=== PATIENT | male | born 1960 | race Caucasian/White ===

== ENCOUNTER → 2018-05-21 07:36 | Outpatient (CLI) | payer MEDICAID, SELFPAY ==
[2018-05-21 09:38] LABS: Vitamin B12 509 pg/mL (193-986)
[2018-05-21 09:51] LABS: PHOSPHORUS 3.3 mg/dL (2.6-4.7)
[2018-05-22 12:55] LABS: HIV-1/2 Ag & Ab Screen Negative (NEGAT)
[2018-05-23 10:05] LABS: Thiamine (Vitamin B1), WB 162 nmol/L (70-180)
[2018-05-23 12:49] LABS: HBs Antibody, Qual Negative; HBs Antibody, Quant <3.1 mIU/mL; Hepatitis B Core Antibody Negative (NEGAT); Hepatitis B surface Ag Negative (NEGAT); Hepatitis C Ab w Rflx HCV PCR Negative (NEGAT)
== END ==
PROVIDERS: PCP Internal Medicine; Visit Provider Nurse Practitioner
DX: K70.9 Alcoholic liver disease, unspecified (principal)
CPT/HCPCS: 36415; 86704; 86706; 86803; 87340; 87389; 76700; 82607; 83735; 84100; 84425

== ENCOUNTER → 2018-05-21 08:24 | Outpatient (CLI) | payer MEDICAID, SELFPAY ==
--- NOTE | 2018-05-21 08:24 | DI.REPORT_ITS ---
SYMPTOM/DIAGNOSIS: ALCOHOLIC LIVER DISEASE K70.9 ABDOMINAL ULTRASOUND: Comparison CT scan is 10/21/17. The aorta and IVC are normal in caliber. The liver is normal in size. There is diffuse increased echogenicity of the liver consistent with fatty infiltration. There are hepatic cysts present. These were present on the CT scan from 10/21/17. There are stones seen within the gallbladder. No gallbladder wall thickening, pericholecystic fluid or biliary ductal dilatation seen. There is a negative sonographic Garrido sign. The pancreas was not well visualized on this examination due to the patient's body habitus and overlying bowel. The spleen is normal in size and appearance. The kidneys are unremarkable. No free fluid is seen on this ultrasound of the abdomen. IMPRESSION: 1. Hepatic steatosis 2. Cholelithiasis, no biliary ductal dilatation.
== END ==
PROVIDERS: PCP Internal Medicine; Visit Provider Nurse Practitioner
DX: K76.0 Fatty (change of) liver, not elsewhere classified (principal); K70.0 Alcoholic fatty liver; K80.20 Calculus of gallbladder without cholecystitis without obstruction
CPT/HCPCS: 76700

== ENCOUNTER → 2018-06-10 21:38 | Outpatient (REF) | payer MEDICAID, SELFPAY ==
[2018-06-10 22:19] LABS: Prothrombin Time 9.4 sec (9.3-10.8)
[2018-06-10 22:30] LABS: Abs Immature Grans 0.01 k/cumm (0.0-0.09); Absolute Basophil Count 0.09 k/cumm (0.0-0.2); Absolute Eosinophil Count 0.08 k/cumm (0.0-0.7); Absolute Lymphocyte Count 2.36 k/cumm (1.2-3.4); Absolute Monocyte Count 0.64 k/cumm (0.11-0.7); Absolute Neutrophil Count 2.73 k/cumm (1.2-6.7); Basophils % 1.5; Eosinophils % 1.4; HCT 43.9 % (40.0-50.0); HGB 15.3 g/dL (13.5-17.5); Immature Grans % 0.2; Lymphocytes % 39.9; Mean Corp. HGB Concentration 34.9 g/dL (32.0-36.0); Mean Corpuscular Hemoglobin 33.2 pg (27.0-33.0); Mean Corpuscular Volume 95.2 fL (80-95); Monocytes % 10.8; Neutrophils % 46.2; RBC 4.61 m/cumm (4.50-6.00); RBC Distribution Width 12.5 % (11.8-14.1); White Blood Cell Count 5.91 k/cumm (4.4-10.8)
[2018-06-10 22:33] LABS: ALT 52 U/L (12-78); AST 31 U/L (15-37); Albumin 4.1 g/dL (3.4-5.0); Alkaline Phosphatase 69 U/L (46-116); Anion Gap 10.3 mmol/L (3-11); BUN 13 mg/dL (7-18); Bilirubin, Total 0.7 mg/dL (0.2-1.0); CO2 24.7 mmol/L (21.0-32.0); Calcium 9.2 mg/dL (8.5-10.1); Chloride 105 mmol/L (98-107); Glucose 98 mg/dL (70-100); Potassium 3.9 mmol/L (3.5-5.1); Sodium 140 mmol/L (136-145); Total Protein 7.5 g/dL (6.4-8.2)
[2018-06-11 00:05] LABS: Platelet Count 225 x1000/uL (130-400)
== END ==
LOC: NCHCN 21:38
PROVIDERS: PCP Internal Medicine; Visit Provider Nurse Practitioner
DX: K92.0 Hematemesis (principal); K70.9 Alcoholic liver disease, unspecified
CPT/HCPCS: 80053; 85025; 85610

== ENCOUNTER 2018-06-14 12:26 | Emergency (ER) | payer MEDICAID, SELFPAY ==
[2018-06-14] VITALS (24 sets, daily range): BP systolic 133–156; BP diastolic 81–90; PULSE 43–59; RESP 8–32; TEMP 36.7; O2SAT 96–100
[2018-06-14] MEDS: Normal Saline 1,000 ML 1000 ML IV ×2 (12:50→16:40)
[2018-06-14] MEDS: Omnipaque 350 MG/ML 100 ML BTL IJ (12:55)
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
[2018-06-14 13:55] LABS: Bilirubin Negative (Negative); Blood Negative (Negative); Clarity Clear; Glucose Negative (Negative); Ketones Negative (Negative); Leukocyte Esterase Negative (Negative); Nitrite Negative (Negative); Specific Gravity 1.015 (1.005-1.025); Urobilinogen 0.2 EU/dL (Up TO 0.2)
[2018-06-14 13:56] LABS: Abs Immature Grans 0.02 k/cumm (0.0-0.09); Absolute Basophil Count 0.07 k/cumm (0.0-0.2); Absolute Eosinophil Count 0.13 k/cumm (0.0-0.7); Absolute Lymphocyte Count 2.42 k/cumm (1.2-3.4); Absolute Monocyte Count 0.82 k/cumm (0.11-0.7); Absolute Neutrophil Count 4.49 k/cumm (1.2-6.7); Basophils % 0.9; Eosinophils % 1.6; HCT 40.2 % (40.0-50.0); HGB 14.1 g/dL (13.5-17.5); Immature Grans % 0.3; Lymphocytes % 30.4; Mean Corp. HGB Concentration 35.1 g/dL (32.0-36.0); Mean Corpuscular Hemoglobin 32.6 pg (27.0-33.0); Mean Corpuscular Volume 92.8 fL (80-95); Mean Platelet Volume 10.7 fL (8.0-11.0); Monocytes % 10.3; Neutrophils % 56.5; Platelet Count 154 x1000/uL (130-400); RBC 4.33 m/cumm (4.50-6.00); RBC Distribution Width 11.7 % (11.8-14.1); White Blood Cell Count 7.95 k/cumm (4.4-10.8)
[2018-06-14 14:02] LABS: INR 1.1 (1.0-3.5); PTT Activated 23.9 sec (21.0-31.4); Prothrombin Time 10.5 sec (9.3-10.8)
[2018-06-14 14:06] LABS: Bacteria Negative HPF (Negative); Crystals Negative HPF (Negative); Epithelial Cells Rare HPF (Negative); Mucus Moderate (Negative); Other Cells Few Transitional (Negative); RBC 0-2 (0-2); WBC 0-2 HPF (0-5)
[2018-06-14 14:07] LABS: C & S Indicated? No; Casts 0-2 Coarse Granular LPF (Negative)
[2018-06-14 14:14] LABS: ALT 38 U/L (12-78); AST 26 U/L (15-37); Albumin 3.6 g/dL (3.4-5.0); Alkaline Phosphatase 58 U/L (46-116); Amylase 49 U/L (25-115); Anion Gap 6.7 mmol/L (3-11); BUN 12 mg/dL (7-18); Bilirubin, Total 0.7 mg/dL (0.2-1.0); CO2 26.3 mmol/L (21.0-32.0); CREATININE 0.87 mg/dL (0.70-1.30); Calcium 8.3 mg/dL (8.5-10.1); Chloride 105 mmol/L (98-107); Glucose 91 mg/dL (70-100); Lipase 159 U/L (73-393); Magnesium 1.6 mg/dL (1.8-2.4); Potassium 3.4 mmol/L (3.5-5.1); Sodium 138 mmol/L (136-145)
[2018-06-14 14:15] LABS: ETHANOL BLOOD < 3.0 mg/dL (<3); Troponin I < 0.02 ng/mL (0.00-0.06)
[2018-06-14 14:15] LABS: *AMPHETAMINES SCREEN URINE Negative (Negative); *BARBITURATES SCREEN URINE Negative (Negative); *BENZODIAZEPINES SCREEN URINE Negative (Negative); Cannabinoids THC POSITIVE (Negative); Cocaine Screen,Urine Negative (Negative); METHADONE URINE SCREEN Negative (Negative); OPIATES URINE SCREEN Negative (Negative)
[2018-06-14 14:16] LABS: Tricyclic Antidepressants Negative (Negative)
[2018-06-14] MEDS: fentaNYL 100 MCG/2 ML VIAL 50 MCG IVP (15:00)
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
[2018-06-14] MEDS: ACETAMINOPHEN 1,000 MG/100 ML BTL 400 MG (17:23)
[2018-06-14] MEDS: Ketorolac 30 MG/ML VIAL (17:23)
== END 2018-06-14 18:04 | disposition home or self-care (01) ==
LOC: ER 06-15 10:14
PROVIDERS: Emergency Provider Student in an Organized Health Care Education/Training Program; PCP Internal Medicine
DX: S43.52XA Sprain of left acromioclavicular joint, initial encounter (principal); S46.812A Strain of other muscles, fascia and tendons at shoulder and upper arm level, left arm, initial encounter; S00.03XA Contusion of scalp, initial encounter; V13.0XXA Pedal cycle driver injured in collision with car, pick-up truck or van in nontraffic accident, initial encounter; M54.2 Cervicalgia; I10 Essential (primary) hypertension
CPT/HCPCS: 36415; 51702; 74177; 80053; 80307; 83690; 96361; 96365; 96375; 99285; 70450; 71260; 72125; 72141; 73218; 80320; 81003; 81015; 82150; 83735; 84484; 85025; 85610; 85730; J0131; J1885; J3010; J3490

== ENCOUNTER 2018-10-01 11:47 | Emergency (ER) | payer MEDICAID, SELFPAY ==
[2018-10-01] VITALS (64 sets, daily range): BP systolic 93–136; BP diastolic 54–105; PULSE 99–187; RESP 16–32; TEMP 36.6–36.8; O2SAT 84–99
--- NOTE | 2018-10-01 11:42 | DI.COMBO_ITS ---
SYMPTOM/DIAGNOSIS: HYPOXIA, FELL NONCONTRAST HEAD CT: The examination was carried out according to usual protocol without contrast enhancement. There is no evidence of an intra/extra-axial hemorrhage or fluid collection. 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 The images are compared with the prior study of 06/14/18 and there has been no significant interval change. There is evidence of small vessel disease and there is in the right frontal lobe, a small region of diminished absorption which lies adjacent to the anterior superior body of the right lateral ventricle in the frontal lobe and likely represents the residua of a small right frontal infarction. The ventricles are intact. The midline is preserved. The posterior fossa is unremarkable save for atrophic changes. There is no acute abnormality involving the skull. The sinuses and mastoid air cells are intact. There are mild inflammatory changes involving the maxillary antra. 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 No acute abnormality is seen. CERVICAL SPINE CT: The vertebral bodies are intact. There is straightening of the normal cervical lordosis. There is no demonstrated vertebral body fracture. There is a minimal anterior subluxation of C 3 on C 4 which is associated with facet joint degenerative changes and no posterior element fracture is identified. There is note also made of severe degenerative changes throughout the spine involving the facet joints. The neural canal is widely patent throughout. There is no evidence of gross compromise of the neural foramen. The odontoid is intact and is closely applied to the anterior arch of C 1. Degenerative changes involving the C 1-2 articulations are noted. The prevertebral soft tissues appear intact. SUMMARY: Reversal of the normal cervical lordosis is demonstrated. There are degenerative changes most advanced in the lower cervical spine with disc narrowing and hypertrophic spurring. There is no evidence of an acute fracture or subluxation. CHEST: AP semi erect chest was performed. The lungs are free of infiltrate. There is no pleural effusion. The heart is not enlarged. The hilar structures, mediastinum and tracheal air column are intact. SUMMARY: No evidence of acute cardiopulmonary disease.
[2018-10-01] MEDS: Normal Saline 1,000 ML 1000 ML IV ×2 (12:00→13:04)
--- NOTE | 2018-10-01 12:01 | W.ED.GENAD ---
Discharge Plan Disposition Patient Disposition: [facility] Condition: Stable Discharge Details Chief Complaint: Seizure Clinical Impression: Alcohol withdrawal, Atrial fibrillation with RVR Reason For Visit: EDWARD Primary Care Provider: Otilio Fox ED Provider: Jn Maya Home Meds and New Rx's Prescriptions: No Action acetaminophen [Mapap Extra Strength] 500 MG tablet 1,000 mg PO Q6H 5 Days Qty: 60 RF: 0 Ibuprofen [Motrin Ib] 200 MG tablet 600 mg PO Q6H 5 Days Qty: 60 RF: 0 sucralfate 1 GM tablet 1 gm PO AC & HS Qty: 120 RF: 0 pantoprazole 40 MG tablet,delayed release (DR/EC) 40 mg PO DAILY Qty: 30 RF: 2 thiamine mononitrate (vit B1) [Vitamin B-1 (mononitrate)] 100 MG tablet 100 mg PO DAILY Qty: 30 RF: 0 multivitamin [Multiple Vitamins] 1 TAB tablet 1 tab PO DAILY Qty: 90 RF: 3 Medical Decision Making 58 yo male with hx of heavy aclohol use whose roommate reported to ems last drink was over 15 hours ago, who had a tonic clonic seizure witnessed by roommate lasting about 7minutes and then when ems arrived and was getting him in the ambulance had another 2-3minute tonic clonic seizure per report and was given 10mg IM versed. HE is currently moving extremities to painful stimuli and does make purposeful arm movements, do not feel intubation at this time warranted. He is afib with rvr and has hx of afib, will treat with diltiazem as unclear when this started. Will obtain head ct to eval for tbi and eval for electrolyte abnormalities. Pt is now awake and talking, caox4. Labs show significant anion gap acidosis likely from his seizure, No acute findings on imaging per Dr. Nguyen. He is still in afib with rvr with rates in the 150's so 15mg IV given in addition to the 20mg given initially and drip started. We have no icu beds here, will try to find a different facility to transfer to for his afib with rvr and alcohol withdrawal pt's bp remains stable, HR still in he 130's, spoke with Dr. jean-baptiste from [facility] who accepts pt. Differential Diagnosis alcohol withdrawal, seizure disorder, tbi Imaging Data Radiologic Study: Attestation: I personally reviewed and interpreted this imaging study as follows: Imaging: X-Ray My impression: no acute findings Radiologic Study #2: Attestation: I personally reviewed and interpreted this imaging study as follows: Imaging: CT Scan Radiologist's impression: no acute findings per Lab Data Lab results reviewed: Yes I reviewed the patient's lab results. ECG Data Attestation: I personally reviewed and interpreted this ECG (s) as follows: Prior ECG tracings: not available for review Interpretation: afib with rvr, rates of 192, mild st depression in lateral leads HPI General Mode of arrival: EMS. Date/Time Provider Initiated Documentation: 10/01/18 11:49. Limitations to Documentation: no limitations and altered mental status. Information obtained by: EMS. History of Present Illness 58 year old M presents to the emergency department with the chief complaint of seizure, Patient started experiencing this hour(s) (1) and it has been now resolved. No relieving factors improve symptom(s), Patient did receive the following treatments prior to arrival, other (10mg IM versed) Related Data Home Medications Medication Instructions Recorded Confirmed multivitamin [Multiple Vitamins] 1 tab PO DAILY #90 tab 05/29/18 07/12/18 pantoprazole 40 mg PO DAILY #30 tabcr 05/29/18 07/12/18 sucralfate 1 gm PO AC & HS #120 tab 05/29/18 07/12/18 thiamine mononitrate (vit B1) 100 mg PO DAILY #30 tab 05/29/18 07/12/18 [Vitamin B-1 (mononitrate)] Ibuprofen [Motrin Ib] 600 mg PO Q6H 5 Days #60 tab 06/14/18 07/12/18 acetaminophen [Tylenol Extra 1,000 mg PO Q6H 5 Days #60 tab 06/14/18 07/12/18 Strength] Previous Rx's Medication Instructions Recorded multivitamin [Multiple Vitamins] 1 tab PO DAILY #90 tab 05/29/18 pantoprazole 40 mg PO DAILY #30 tabcr 05/29/18 sucralfate 1 gm PO AC & HS #120 tab 05/29/18 thiamine mononitrate (vit B1) 100 mg PO DAILY #30 tab 05/29/18 [Vitamin B-1 (mononitrate)] Ibuprofen [Motrin Ib] 600 mg PO Q6H 5 Days #60 tab 06/14/18 acetaminophen [Tylenol Extra 1,000 mg PO Q6H 5 Days #60 tab 06/14/18 Strength] Allergies Allergy/AdvReac Type Severity Reaction Status Date / Time acamprosate calcium AdvReac Intermediate widespread Verified 07/01/18 13:33 [From Campral] pain General Stated Complaint: Seizure GABRIELE: 2 Review of Systems Review of Systems Unobtainable due to mental status Gastrointestinal Denies vomiting PFSH Medical History Alcohol abuse Alcohol withdrawal Alcoholic gastritis Alcoholic liver disease Anemia Atrial fibrillation with rapid ventricular response Cannabis abuse Cholelithiasis Continuous chronic alcoholism DTs (delirium tremens) Dehydration Diarrhea Diverticulitis Hematuria History of atrial fibrillation History of closed head injury Hypokalemia Hypomagnesemia Hypophosphatemia Thrombocytopenia Social History Smoking/Tobacco Use Status: Never Exam Const General: disheveled Limitations: altered mental status HENMT Head: normal to inspection Ears: external ears normal General nose exam: external nose normal Mouth: moist mucous membranes Eyes General: appearance normal, both eyes and all related structures Neck Neck: normal visual inspection Resp Effort & Inspection: normal respiratory effort and able to speak in complete sentences Cardio Jugular venous pressure: no JVD Rate: tachycardic Rhythm: abnormal rhythm Skin General skin exam: no rashes or lesions noted Neuro General: other (eyes closed, snoring, moves all extremities to painful stimuli) Extrem General: normal to inspection Psych Mental Status: mental status grossly normal Course Vital Signs Temperature 36.8 C 10/01/18 11:39 Pulse 180 H 10/01/18 11:39 Respiratory Rate 20 10/01/18 11:39 Blood Pressure 124/80 10/01/18 11:39 Pulse Oximetry 98 10/01/18 11:39 Temperature 36.8 C 10/01/18 11:39 Temperature Source Skin 10/01/18 11:39 Pulse 180 H 10/01/18 11:39 Respiratory Rate 20 10/01/18 11:39 Blood Pressure 124/80 10/01/18 11:39 Blood Pressure Position Sitting 10/01/18 11:39 Pulse Oximetry 98 10/01/18 11:39 Oxygen Delivery Method Room Air 10/01/18 11:39 Oxygen Flow Rate 0 10/01/18 11:39 Critical Care Time Critical Care Time: Yes Total Critical Care Time: 90 (minutes) Attestation: time spent giving IV diltiazem and drip, monitoring hemodynamics and frequent reassessments in patient with afib with rvr and potential to deteriorate at any time
--- NOTE | 2018-10-01 12:06 | ED.GENADUL_ITS ---
Discharge Plan Disposition Patient Disposition: [facility] Condition: Stable Discharge Details Chief Complaint: Seizure Clinical Impression: Alcohol withdrawal, Atrial fibrillation with RVR Reason For Visit: [facility]WARD Primary Care Provider: Otilio Fox ED Provider: Jn Maya Home Meds and New Rx's Prescriptions: No Action acetaminophen [Mapap Extra Strength] 500 MG tablet 1,000 mg PO Q6H 5 Days Qty: 60 RF: 0 Ibuprofen [Motrin Ib] 200 MG tablet 600 mg PO Q6H 5 Days Qty: 60 RF: 0 sucralfate 1 GM tablet 1 gm PO AC & HS Qty: 120 RF: 0 pantoprazole 40 MG tablet,delayed release (DR/EC) 40 mg PO DAILY Qty: 30 RF: 2 thiamine mononitrate (vit B1) [Vitamin B-1 (mononitrate)] 100 MG tablet 100 mg PO DAILY Qty: 30 RF: 0 multivitamin [Multiple Vitamins] 1 TAB tablet 1 tab PO DAILY Qty: 90 RF: 3 Medical Decision Making 58 yo male with hx of heavy aclohol use whose roommate reported to ems last drink was over 15 hours ago, who had a tonic clonic seizure witnessed by roommate lasting about 7minutes and then when ems arrived and was getting him in the ambulance had another 2-3minute tonic clonic seizure per report and was given 10mg IM versed. HE is currently moving extremities to painful stimuli and does make purposeful arm movements, do not feel intubation at this time warranted. He is afib with rvr and has hx of afib, will treat with diltiazem as unclear when this started. Will obtain head ct to eval for tbi and eval for electrolyte abnormalities. Pt is now awake and talking, caox4. Labs show significant anion gap acidosis likely from his seizure, No acute findings on imaging per Dr. Nguyen. He is still in afib with rvr with rates in the 150's so 15mg IV given in addition to the 20mg given initially and drip started. We have no icu beds here, will try to find a different facility to transfer to for his afib with rvr and alcohol withdrawal pt's bp remains stable, HR still in he 130's, spoke with Dr. jean-baptiste from [facility] who accepts pt. Differential Diagnosis alcohol withdrawal, seizure disorder, tbi Imaging Data Radiologic Study: Attestation: I personally reviewed and interpreted this imaging study as follows: Imaging: X-Ray My impression: no acute findings Radiologic Study #2: Attestation: I personally reviewed and interpreted this imaging study as follows: Imaging: CT Scan Radiologist's impression: no acute findings per Lab Data Lab results reviewed: Yes I reviewed the patient's lab results. ECG Data Attestation: I personally reviewed and interpreted this ECG (s) as follows: Prior ECG tracings: not available for review Interpretation: afib with rvr, rates of 192, mild st depression in lateral leads HPI General Mode of arrival: EMS . Date/Time Provider Initiated Documentation: 10/01/18 11:49 . Limitations to Documentation: no limitations and altered mental status . Information obtained by: EMS . History of Present Illness 58 year old M presents to the emergency department with the chief complaint of seizure, Patient started experiencing this hour(s) (1) and it has been now resolved. No relieving factors improve symptom(s), Patient did receive the following treatments prior to arrival, other (10mg IM versed) Related Data Home Medications Medication Instructions Recorded Confirmed multivitamin [Multiple Vitamins] 1 tab PO DAILY #90 tab 05/29/18 07/12/18 pantoprazole 40 mg PO DAILY #30 tabcr 05/29/18 07/12/18 sucralfate 1 gm PO AC & HS #120 tab 05/29/18 07/12/18 thiamine mononitrate (vit B1) 100 mg PO DAILY #30 tab 05/29/18 07/12/18 [Vitamin B-1 (mononitrate)] Ibuprofen [Motrin Ib] 600 mg PO Q6H 5 Days #60 tab 06/14/18 07/12/18 acetaminophen [Tylenol Extra 1,000 mg PO Q6H 5 Days #60 tab 06/14/18 07/12/18 Strength] Previous Rx's Medication Instructions Recorded multivitamin [Multiple Vitamins] 1 tab PO DAILY #90 tab 05/29/18 pantoprazole 40 mg PO DAILY #30 tabcr 05/29/18 sucralfate 1 gm PO AC & HS #120 tab 05/29/18 thiamine mononitrate (vit B1) 100 mg PO DAILY #30 tab 05/29/18 [Vitamin B-1 (mononitrate)] Ibuprofen [Motrin Ib] 600 mg PO Q6H 5 Days #60 tab 06/14/18 acetaminophen [Tylenol Extra 1,000 mg PO Q6H 5 Days #60 tab 06/14/18 Strength] Allergies Allergy/AdvReac Type Severity Reaction Status Date / Time acamprosate calcium AdvReac Intermediate widespread Verified 07/01/18 13:33 [From Campral] pain General Stated Complaint: Seizure GABRIELE: 2 Review of Systems Review of Systems Unobtainable due to mental status Gastrointestinal Denies vomiting PFSH Medical History Alcohol abuse Alcohol withdrawal Alcoholic gastritis Alcoholic liver disease Anemia Atrial fibrillation with rapid ventricular response Cannabis abuse Cholelithiasis Continuous chronic alcoholism DTs (delirium tremens) Dehydration Diarrhea Diverticulitis Hematuria History of atrial fibrillation History of closed head injury Hypokalemia Hypomagnesemia Hypophosphatemia Thrombocytopenia Social History Smoking/Tobacco Use Status: Never Exam Const General: disheveled Limitations: altered mental status HENMT Head: normal to inspection Ears: external ears normal General nose exam: external nose normal Mouth: moist mucous membranes Eyes General: appearance normal, both eyes and all related structures Neck Neck: normal visual inspection Resp Effort & Inspection: normal respiratory effort and able to speak in complete sentences Cardio Jugular venous pressure: no JVD Rate: tachycardic Rhythm: abnormal rhythm Skin General skin exam: no rashes or lesions noted Neuro General: other (eyes closed, snoring, moves all extremities to painful stimuli) Extrem General: normal to inspection Psych Mental Status: mental status grossly normal Course Vital Signs Temperature 36.8 C 10/01/18 11:39 Pulse 180 H 10/01/18 11:39 Respiratory Rate 20 10/01/18 11:39 Blood Pressure 124/80 10/01/18 11:39 Pulse Oximetry 98 10/01/18 11:39 Temperature 36.8 C 10/01/18 11:39 Temperature Source Skin 10/01/18 11:39 Pulse 180 H 10/01/18 11:39 Respiratory Rate 20 10/01/18 11:39 Blood Pressure 124/80 10/01/18 11:39 Blood Pressure Position Sitting 10/01/18 11:39 Pulse Oximetry 98 10/01/18 11:39 Oxygen Delivery Method Room Air 10/01/18 11:39 Oxygen Flow Rate 0 10/01/18 11:39 Critical Care Time Critical Care Time: Yes Total Critical Care Time: 90 (minutes) Attestation: time spent giving IV diltiazem and drip, monitoring hemodynamics and frequent reassessments in patient with afib with rvr and potential to deteriorate at any time
[2018-10-01 12:08] LABS: Abs Immature Grans 0.11 k/cumm (0.0-0.09); Absolute Basophil Count 0.04 k/cumm (0.0-0.2); Absolute Eosinophil Count 0.03 k/cumm (0.0-0.7); Absolute Lymphocyte Count 4.57 k/cumm (1.2-3.4); Absolute Monocyte Count 0.74 k/cumm (0.11-0.7); Absolute Neutrophil Count 4.68 k/cumm (1.2-6.7); Basophils % 0.4; Eosinophils % 0.3; HCT 45.7 % (40.0-50.0); Immature Grans % 1.1; Lymphocytes % 44.9; Mean Corpuscular Hemoglobin 32.9 pg (27.0-33.0); Mean Corpuscular Volume 93.8 fL (80-95); Mean Platelet Volume 10.3 fL (8.0-11.0); Monocytes % 7.3; RBC 4.87 m/cumm (4.50-6.00); White Blood Cell Count 10.17 k/cumm (4.4-10.8)
[2018-10-01] MEDS: Lidocaine 2% Jelly 6 ML SYR (12:10)
[2018-10-01 12:20] LABS: Platelet Count 95 x1000/uL (130-400)
[2018-10-01 12:22] LABS: PTT Activated 23.6 sec (21.0-31.4); Prothrombin Time 10.4 sec (9.3-11.0)
[2018-10-01 12:33] LABS: ALT 76 U/L (12-78); AST 79 U/L (15-37); Albumin 4.6 g/dL (3.4-5.0); Alkaline Phosphatase 73 U/L (46-116); Anion Gap 30.4 mmol/L (3-11); BUN 10 mg/dL (7-18); Bilirubin, Direct 0.45 mg/dL (0.00-0.20); Bilirubin, Total 1.3 mg/dL (0.2-1.0); CO2 12.6 mmol/L (21.0-32.0); Calcium 9.2 mg/dL (8.5-10.1); Chloride 100 mmol/L (98-107); ETHANOL BLOOD 31.3 mg/dL (<3); Glucose 120 mg/dL (70-100); Magnesium 1.9 mg/dL (1.8-2.4); Potassium 3.4 mmol/L (3.5-5.1); Sodium 143 mmol/L (136-145); Total Protein 8.4 g/dL (6.4-8.2)
[2018-10-01] MEDS: LORazepam 2 MG/ML VIAL (12:33)
[2018-10-01 13:41] LABS: Anion Gap 19.6 mmol/L (3-11); BUN 9 mg/dL (7-18); CO2 17.4 mmol/L (21.0-32.0); CREATININE 0.87 mg/dL (0.70-1.30); Calcium 8.1 mg/dL (8.5-10.1); Chloride 106 mmol/L (98-107); Glucose 95 mg/dL (70-100); Potassium 3.9 mmol/L (3.5-5.1); Sodium 143 mmol/L (136-145)
== END 2018-10-01 15:35 | disposition short-term general hospital (02) ==
PROVIDERS: Emergency Provider Emergency Medicine; PCP Internal Medicine
DX: F10.230 Alcohol dependence with withdrawal, uncomplicated (principal); I48.0 Paroxysmal atrial fibrillation
CPT/HCPCS: 36415; 80048; 80053; 80076; 93005; 96361; 96374; 96376; 99285; 70450; 71045; 72125; 80320; 83735; 85025; 85610; 85730; 93010; J2060

== ENCOUNTER 2018-10-14 12:38 | Outpatient (REF) | payer MEDICAID, SELFPAY ==
[2018-10-14 21:12] LABS: Abs Immature Grans 0.05 k/cumm (0.0-0.09); Absolute Basophil Count 0.09 k/cumm (0.0-0.2); Absolute Eosinophil Count 0.08 k/cumm (0.0-0.7); Absolute Lymphocyte Count 2.87 k/cumm (1.2-3.4); Absolute Monocyte Count 0.84 k/cumm (0.11-0.7); Absolute Neutrophil Count 4.51 k/cumm (1.2-6.7); Basophils % 1.1; Eosinophils % 0.9; HCT 42.7 % (40.0-50.0); HGB 14.9 g/dL (13.5-17.5); Immature Grans % 0.6; Mean Corp. HGB Concentration 34.9 g/dL (32.0-36.0); Mean Corpuscular Hemoglobin 32.4 pg (27.0-33.0); Mean Corpuscular Volume 92.8 fL (80-95); Mean Platelet Volume 11.5 fL (8.0-11.0); Neutrophils % 53.4; Platelet Count 275 x1000/uL (130-400); RBC Distribution Width 12.6 % (11.8-14.1); White Blood Cell Count 8.44 k/cumm (4.4-10.8)
[2018-10-14 21:36] LABS: ALT 103 U/L (12-78); AST 41 U/L (15-37); Alkaline Phosphatase 63 U/L (46-116); Anion Gap 11.4 mmol/L (3-11); BUN 14 mg/dL (7-18); Bilirubin, Total 0.4 mg/dL (0.2-1.0); CO2 25.6 mmol/L (21.0-32.0); CREATININE 0.89 mg/dL (0.70-1.30); Calcium 9.5 mg/dL (8.5-10.1); Chloride 103 mmol/L (98-107); Glucose 95 mg/dL (70-100); Potassium 4.3 mmol/L (3.5-5.1); Sodium 140 mmol/L (136-145); TSH (W/Ref FT4) 0.86 uIU/mL (0.358-3.74); Total Protein 7.3 g/dL (6.4-8.2)
== END 2018-10-14 12:58 ==
LOC: NCHCN 12:38
PROVIDERS: PCP Internal Medicine; Visit Provider Nurse Practitioner
DX: D69.6 Thrombocytopenia, unspecified (principal); I48.0 Paroxysmal atrial fibrillation
CPT/HCPCS: 80053; 84443; 85025

== ENCOUNTER 2019-01-23 13:54 | Inpatient (IN) | payer MEDICAID, SELFPAY ==
[2019-01-23] VITALS (61 sets, daily range): BP systolic 132–164; BP diastolic 85–107; PULSE 69–112; RESP 0–29; TEMP 36.6–37.3; O2SAT 86–98
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
[2019-01-23] MEDS: Normal Saline 1,000 ML 150 ML IV (14:07)
--- NOTE | 2019-01-23 14:07 | ED.GENADUL_ITS ---
Discharge Plan Disposition Patient Disposition: [facility] INPATIENT Condition: Stable Discharge Details Chief Complaint: Seizure Clinical Impression: Alcohol withdrawal, Delirium tremens, Seizure Primary Care Provider: Otilio Fox ED Provider: Gray Valentino Home Meds and New Rx's Prescriptions: No Action acetaminophen [Mapap Extra Strength] 500 MG tablet 1,000 mg PO Q6H 5 Days Qty: 60 RF: 0 Ibuprofen [Motrin Ib] 200 MG tablet 600 mg PO Q6H 5 Days Qty: 60 RF: 0 thiamine mononitrate (vit B1) [Vitamin B-1 (mononitrate)] 100 MG tablet 100 mg PO DAILY Qty: 30 RF: 0 Medical Decision Making <COLLEEN Garnica - Last Filed: 01/23/19 20:17> Patient 38-year-old female with history of seizures presenting today for seizure-like activity [place] the library. 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 Patient reports that typically is associated with alcohol consumption but he has not had alcohol in the past 3 days. Reports that while he did previously drink alcohol daily he has not done so in the past several months. Reports intermittent alcohol consumption. Patient is well-known to EMS reported to be at his baseline the postictal state. Initially, patient is slightly groggy but answering questions appropriately. After waiting approximately 10 minutes, blood was being drawn, patient has cleared greatly and is feeling much improved. He does feel fatigued but otherwise well. He does have a small abrasion to the right side of his tongue but otherwise no evidence of trauma. Will obtain baseline labs. At this point, there is no evidence of trauma patient has known history of seizure disorder not feel that imaging is warranted. Neuro exam is intact, he denies feeling anxious, no tremors noted. Labs significant for an elevated anion gap of 20. Patient has had elevated Previously after seizure activity. ETOH 51. Will also obtain UDS, UA, VBG and continue to hydrate the patient. At the end of my shift, patient is receiving hydration. Care transitioned to Dr. Valentino with above labs pending. Immediately after signing the patient out, nursing staff brought my attention to a sudden change. Patient has fresh blood around his mouth, is increasingly confused and appears to be postictal once again. He is unable to follow commands at this time. Appears diaphoretic. EKG, BGL and vitals obtained again. EKG reviewed by Dr. Valentino. CT head ordered as patient has now seized x 2. Care transitioned to Dr. Valentino. Patient is resting and waking up once again. HR 117. <Gray Rehan Valentino, DO - Last Filed: 01/23/19 18:58> This is a 58-year-old male with a past medical history of alcoholism who presents to the ER today for evaluation of seizure. He sees, EMS was contacted, and brought the patient in for evaluation. He was postictal on EMS arrival, but acting normally by the time he arrived here in the ED. He was initially seen and assessed by my colleague Luna Hyatt, he had an appropriate and thorough workup at that time. He was noted at that time that the patient's anion gap was 20. Bicarb was low. That time an additional VBG was ordered demonstrating mild acidosis, urinalysis does show evidence of ketones. Concern for alcoholic ketoacidosis. Additionally salicylate was ordered, and this was within normal limits, I do not think the cause of his acidosis. Lactate was notably elevated at 12.4 she is most likely a combination of dehydration, alcoholism and from his seizure. He was started on a banana bag, and 2 mg of Ativan given, however prior to the administration of the Ativan patient had a repeat seizure here in the ED, which resolved within less than a minute, with a very brief postictal phase. I did contact [facility], they have no beds available, I did contact the [facility] and discussed the case with their aerospace control and warning systems Dr. Tam in their neurologist Dr. trivedi. After review of the CT scan, labs, and patient's clinical presentation neurology believes that this is most likely secondary to alcohol withdrawals and not actual seizures. They do not think that the patient should be transferred at this time, and recommended management for delirium tremens and alcohol withdrawal, if he continues to have seizures in spite of the Ativan, they recommend management of this with Keppra and continued Ativan as needed. Since it is the patient does not show signs of 20 hours she is a [id number] seizures and we are able to visualize when he has a seizure they do not feel that emergent EEG is indicated at this time. I did contact Dr. Lopez, and discussed the case with him. He agrees with the assessment and plan. Prior to admission repeat neurologic exam demonstrates notable jitteriness and tremor of the hands, no evidence of dysdiadochokinesia or dysmetria. Mild unsteadiness. I have extensively reviewed the treatment plan with the patient. I have addressed all patient concerns at this time. I have also discussed the plan with the admitting physician and they agree with the current assessment and plan and have agreed to assume responsibility for the patient. All parties demonstrate verbal understanding and agreement with our assessment and plan at this time. EKG 15: 13 Rate 108, sinus tachycardia, TN 144, QTc 474, QRS 98, no significant ST elevations or depressions. No T wave inversions. Findings: Brain: There is no new hemorrhage or new extra-axial fluid collections or shift of midline structures. Ventricles: The ventricles are mildly enlarged for age. Bones/joints: There is a small left frontal craniotomy. Deep to this there is a large area of encephalomalacia extending down to the frontal horn the left lateral ventricle. There is a moderate amount of a hypodensity in the underlying white matter deep to the encephalomalacia. There is a small amount of leukomalacia adjacent to the frontal horn the right lateral ventricle. This is not significantly changed since 10/01/2018 Sinuses: There is severe mucosal thickening of both maxillary sinuses and mild mucosal thickening in the ethmoid c loss. Mastoid air cells: Visualized mastoid air cells are unremarkable. No mastoid effusion. Soft tissues: Unremarkable. Impression: #1 no acute abnormalities noted. Again noted is a large area of encephalomalacia and leukomalacia predominantly in the left frontal and adjacent parietal lobe. #2 chronic bilateral maxillary and to lesser extent ethmoid sinusitis Dictated and Authenticated by: Jn Morales MD. Ordering:MORENITA Carrasco MD HPI <COLLEEN Garnica - Last Filed: 01/23/19 20:17> General Mode of arrival: EMS . Date/Time Provider Initiated Documentation: 01/23/19 14:06 . Limitations to Documentation: altered mental status (patient is post ictal) . Information obtained by: EMS and RN notes reviewed . HPI Narrative: Patient is a 58 year old male, brought in via EMS after seizure at [facility]. EMS reports that patient had a seizure, unknown length of time, while at the library and that staff called for EMS. They report that he was quite confused with garbled speech upon first arrival but that he has been clearing since initial evaluation. They report that thye have seen him multiple times previously for similar episodes and that he is acting per his typical. Patient did not fall, they report that he landed on the desk he was working at. They note that patient smells of ETOH and marijuana although patient denies recent usage. Patient has history of alcohol dependence. He denies AHUJA, visual changes. He is reporting that only area of pain is in his IV. Related Data Home Medications Medication Instructions Recorded Confirmed thiamine mononitrate (vit B1) 100 mg PO DAILY #30 tab 05/29/18 01/23/19 [Vitamin B-1 (mononitrate)] Ibuprofen [Motrin Ib] 600 mg PO Q6H 5 Days #60 tab 06/14/18 01/23/19 acetaminophen [Tylenol Extra 1,000 mg PO Q6H 5 Days #60 tab 06/14/18 01/23/19 Strength] Previous Rx's Medication Instructions Recorded thiamine mononitrate (vit B1) 100 mg PO DAILY #30 tab 05/29/18 [Vitamin B-1 (mononitrate)] Ibuprofen [Motrin Ib] 600 mg PO Q6H 5 Days #60 tab 06/14/18 acetaminophen [Tylenol Extra 1,000 mg PO Q6H 5 Days #60 tab 06/14/18 Strength] Allergies Allergy/AdvReac Type Severity Reaction Status Date / Time acamprosate calcium AdvReac Intermediate widespread Verified 01/23/19 13:57 [From Campral] pain General GABRIELE: 2 Review of Systems <COLLEEN Garnica - Last Filed: 01/23/19 20:17> Constitutional Reports as per HPI, Denies body ache(s), Denies chills, Denies fever(s), Denies lethargy and Denies poor appetite Eyes Reports as per HPI, Denies blurry vision and Denies change in vision ENT Denies vertigo and Denies dizziness Cardiovascular Denies chest pain, Denies chest pain at rest, Denies chest pain with activity, Denies dyspnea and Denies dyspnea on exertion Respiratory Denies chest congestion, Denies cough, Denies dyspnea and Denies dyspnea on exertion Gastrointestinal Denies change in stool character, Denies nausea and Denies vomiting Genitourinary Denies urinary incontinence Musculoskeletal Reports as per HPI Integumentary/Breasts Reports as per HPI, Denies rash and Reports sores (right side of tongue) Neurologic Reports as per HPI, Reports abnormal speech (confused, delayed speech in postictal period), Denies vertigo, Denies dizziness and Reports seizure-like activity PFS <COLLEEN Garnica - Last Filed: 01/23/19 20:17> Medical History Alcohol abuse Alcohol withdrawal Alcoholic gastritis Alcoholic liver disease Anemia Atrial fibrillation with rapid ventricular response Cannabis abuse Cholelithiasis Continuous chronic alcoholism DTs (delirium tremens) Dehydration Diarrhea Diverticulitis Hematuria History of atrial fibrillation History of closed head injury Hypokalemia Hypomagnesemia Hypophosphatemia Thrombocytopenia Social History Smoking/Tobacco Use Status: Never Drug use: Daily Substance use type: marijuana Do you feel safe at home: Yes Do you feel safe in your relationship?: Yes Exam <COLLEEN Garnica - Last Filed: 01/23/19 20:17> Const General: cooperative, comfortable, no acute distress, well developed, disheveled, intoxicated appearing and lethargic Nutritional Appearance: well nourished and overweight Orientation: alert, awake and oriented x3 HENMT Head: normal to inspection, no palpable skull fracture and normocephalic Ears: hearing grossly normal bilaterally and external ears normal General nose exam: external nose normal Face and sinus: normal facial exam Mouth: abnormal oral mucosae (patient has smal abrasion to right side of tongue) Teeth and gingiva: dentition normal Neck Neck: normal visual inspection, full ROM and no meningeal signs Chest Chest: normal inspection of the chest, normal palpation of entire chest wall and no localized rib tenderness Resp Effort & Inspection: normal respiratory effort and able to speak in complete sentences Auscultation: clear to auscultation bilaterally Cardio Rate: regular rate Rhythm: regular rhythm Heart Sounds: S1 normal and S2 normal GI Inspection: normal to inspection Palpation: not firm and no guarding Skin General skin exam: no rashes or lesions noted Neuro General: alert, awake, oriented x3, gait normal, tone normal and moves all extremities Cranial Nerves: CN's II-XI intact bilaterally Cognition: normal cognition Speech: speech normal Gait: normal gait Motor: muscle tone normal throughout and strength 5/5 throughout Sensory Exam: no sensory deficits noted Coordination: [id number] test normal and [id number] test normal Extrem General: normal to inspection Psych Appearance: grossly normal and well kempt Mental Status: mental status grossly normal Speech and Movement: speech and movement normal
[2019-01-23 14:15] LABS: Abs Immature Grans 0.04 k/cumm (0.0-0.09); Absolute Basophil Count 0.03 k/cumm (0.0-0.2); Absolute Eosinophil Count 0.02 k/cumm (0.0-0.7); Absolute Lymphocyte Count 1.52 k/cumm (1.2-3.4); Absolute Monocyte Count 0.51 k/cumm (0.11-0.7); Absolute Neutrophil Count 2.53 k/cumm (1.2-6.7); Basophils % 0.6; Eosinophils % 0.4; HGB 15.3 g/dL (13.5-17.5); Immature Grans % 0.9; Lymphocytes % 32.7; Mean Corp. HGB Concentration 34.8 g/dL (32.0-36.0); Mean Corpuscular Hemoglobin 31.7 pg (27.0-33.0); Mean Corpuscular Volume 91.3 fL (80-95); Mean Platelet Volume 9.6 fL (8.0-11.0); Neutrophils % 54.4; RBC 4.82 m/cumm (4.50-6.00); RBC Distribution Width 13.6 % (11.8-14.1); White Blood Cell Count 4.65 k/cumm (4.4-10.8)
[2019-01-23 14:18] LABS: Platelet Count 99 x1000/uL (130-400)
[2019-01-23 14:50] LABS: ALT 35 U/L (12-78); AST 35 U/L (15-37); Albumin 4.2 g/dL (3.4-5.0); Alkaline Phosphatase 69 U/L (46-116); Anion Gap 20.6 mmol/L (3-11); BUN 14 mg/dL (7-18); Bilirubin, Total 0.5 mg/dL (0.2-1.0); CO2 19.4 mmol/L (21.0-32.0); CREATININE 0.89 mg/dL (0.70-1.30); Chloride 102 mmol/L (98-107); ETHANOL BLOOD 51.6 mg/dL (<3); Glucose 105 mg/dL (70-100); Magnesium 1.8 mg/dL (1.8-2.4); Potassium 3.6 mmol/L (3.5-5.1); Sodium 142 mmol/L (136-145); Total Protein 7.9 g/dL (6.4-8.2)
[2019-01-23 15:30] LABS: HCO3 (Venous) 12 mmol/L (22-28); O2 Sat (Venous) 97 % (70-80); TCO2 (Venous) 11 mmol/L (22-29); pCO2 (Venous) 33 mm/Hg (34-47); pO2 (Venous) 108 mm/Hg (28-44)
[2019-01-23 15:49] LABS: pH (Venous) 7.16 (7.32-7.43)
[2019-01-23] MEDS: Normal Saline 1,000 ML 1000 ML IV (16:09)
[2019-01-23 16:18] LABS: Troponin I < 0.02 ng/mL (0.00-0.06)
--- NOTE | 2019-01-23 16:18 | DI.CT_ITS ---
SYMPTOM/DIAGNOSIS: SEIZURE NONCONTRAST HEAD CT: A noncontrast cranial CT was performed. Note is again made of a left frontal craniotomy with marked left frontal encephalomalacia. There is moderate generalized cerebral atrophy. No evidence of acute intracranial hemorrhage, mass effect or midline shift. There is mucoperiosteal thickening of maxillary and ethmoid sinuses and to a lesser degree frontal and sphenoid sinuses consistent with a chronic sinusitis. Mastoid air cells are clear. Temporal bone structures and orbital structures appear intact. CONCLUSION: No evidence of acute intracranial process. Note is made of chronic pansinusitis.
[2019-01-23 16:43] LABS: Salicylate < 2.8 mg/dL (2.8-20.0)
--- NOTE | 2019-01-23 16:51 | DI.VRAD_ITS ---
EXAM: CT Head Without Contrast EXAM DATE/TIME: 01/23/2019 3:25 PM CLINICAL HISTORY: 58 years old, male; Signs and symptoms; Other: Seizure x 2 TECHNIQUE: Imaging protocol: Axial computed tomography images of the head/brain without contrast. Coronal and sagittal reformatted images were created and reviewed. COMPARISON: CT Head^HEAD FACE CSPINE (Adult) 10/01/2018 12:11 PM FINDINGS: Brain: There is no new hemorrhage or new extra-axial fluid collections or shift of midline structures. Ventricles: The ventricles are mildly enlarged for age. Bones/joints: There is a small left frontal craniotomy. Deep to this there is a large area of encephalomalacia extending down to the frontal horn the left lateral ventricle. There is a moderate amount of a hypodensity in the underlying white matter deep to the encephalomalacia. There is a small amount of leukomalacia adjacent to the frontal horn the right lateral ventricle. This is not significantly changed since 10/01/2018 Sinuses: There is severe mucosal thickening of both maxillary sinuses and mild mucosal thickening in the ethmoid c loss. Mastoid air cells: Visualized mastoid air cells are unremarkable. No mastoid effusion. Soft tissues: Unremarkable. IMPRESSION: #1 no acute abnormalities noted. Again noted is a large area of encephalomalacia and leukomalacia predominantly in the left frontal and adjacent parietal lobe. #2 chronic bilateral maxillary and to lesser extent ethmoid sinusitis Dictated and Authenticated by: Jn Morales MD. Ordering:MORENITA Carrasco MD
[2019-01-23 17:03] LABS: Bilirubin Negative (Negative); Blood Trace-lysed (Negative); Clarity Clear; Glucose Negative (Negative); Ketones 40 mg/dL (Negative); Leukocyte Esterase Negative (Negative); Nitrite Negative (Negative); Specific Gravity 1.025 (1.005-1.025); Urobilinogen 0.2 EU/dL (Up TO 0.2); pH 5.5 (5-8)
[2019-01-23 17:17] LABS: *AMPHETAMINES SCREEN URINE Negative (Negative); *BARBITURATES SCREEN URINE Negative (Negative); *BENZODIAZEPINES SCREEN URINE Negative (Negative); Cannabinoids THC POSITIVE (Negative); Cocaine Screen,Urine Negative (Negative); METHADONE URINE SCREEN Negative (Negative); OPIATES URINE SCREEN Negative (Negative)
[2019-01-23 17:19] LABS: Tricyclic Antidepressants Negative (Negative)
[2019-01-23 17:24] LABS: Bacteria Negative HPF (Negative); Crystals Negative HPF (Negative); Epithelial Cells Rare HPF (Negative); Mucus Trace (Negative); RBC 0-2 (0-2); WBC 0-2 HPF (0-5)
[2019-01-23 17:25] LABS: C & S Indicated? No; Casts Negative LPF (Negative)
[2019-01-23] MEDS: LORazepam 2 MG/ML VIAL IVP (17:35)
[2019-01-23 17:56] LABS: Lactate-non-spesis 12.4 mmol/l (0.6-1.4)
[2019-01-23] MEDS: MAGNESIUM SULFATE 8.12 MEQ, MULTIVITAMIN 10 ML, THIAMINE 100 MG, FOLIC ACID 1 MG in Nor... 168.867 MG IV (18:46)
[2019-01-23] MEDS: Folic Acid 1 MG TAB PO (18:46)
[2019-01-23] MEDS: Thiamine 200 MG/2 ML VIAL 100 MG IM (18:47)
[2019-01-23] MEDS: Multivitamin TAB 1 TAB PO (18:47)
[2019-01-23] MEDS: LORazepam 2 MG/ML VIAL 1 MG IVP (19:13)
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
[2019-01-23 22:54] LABS: Lactate 0.8 mmol/L (0.6-1.4)
[2019-01-23 22:56] LABS: BE (Venous) 1.8 mmol/L (-3-3); HCO3 (Venous) 26 mmol/L (22-28); O2 Sat (Venous) 98 % (70-80); TCO2 (Venous) 23 mmol/L (22-29); pCO2 (Venous) 37 mm/Hg (34-47); pH (Venous) 7.45 (7.32-7.43); pO2 (Venous) 91 mm/Hg (28-44)
[2019-01-23 22:58] LABS: Anion Gap 11.1 mmol/L (3-11); BUN 9 mg/dL (7-18); CO2 25.9 mmol/L (21.0-32.0); CREATININE 0.66 mg/dL (0.70-1.30); Chloride 101 mmol/L (98-107); Glucose 115 mg/dL (70-100); Potassium 3.3 mmol/L (3.5-5.1); Sodium 138 mmol/L (136-145)
[2019-01-24] VITALS (35 sets, daily range): BP systolic 125–158; BP diastolic 76–100; PULSE 58–107; RESP 8–33; TEMP 36.2–36.6; O2SAT 94–100
[2019-01-24] MEDS: Pantoprazole 40 MG VIAL IVP (00:36)
[2019-01-24] MEDS: Normal Saline Flush 10 ML SYR IVP (00:36)
[2019-01-24] MEDS: POTASSIUM CHLORIDE/D5-0.9%NACL 1,000 ML 85 MEQ IV (01:03)
[2019-01-24] MEDS: LORazepam 2 MG/ML VIAL IVP (01:15)
[2019-01-24 07:01] LABS: Abs Immature Grans 0.02 k/cumm (0.0-0.09); Absolute Basophil Count 0.02 k/cumm (0.0-0.2); Absolute Eosinophil Count 0.01 k/cumm (0.0-0.7); Absolute Lymphocyte Count 1.47 k/cumm (1.2-3.4); Absolute Monocyte Count 0.77 k/cumm (0.11-0.7); Absolute Neutrophil Count 3.72 k/cumm (1.2-6.7); Basophils % 0.3; Eosinophils % 0.2; Immature Grans % 0.3; Lymphocytes % 24.5; Mean Corp. HGB Concentration 35.7 g/dL (32.0-36.0); Mean Corpuscular Hemoglobin 31.8 pg (27.0-33.0); Mean Corpuscular Volume 89.2 fL (80-95); Mean Platelet Volume 10.3 fL (8.0-11.0); Monocytes % 12.8; Neutrophils % 61.9; RBC 4.71 m/cumm (4.50-6.00); White Blood Cell Count 6.01 k/cumm (4.4-10.8)
[2019-01-24 07:04] LABS: Prothrombin Time 10.1 sec (9.3-11.0)
[2019-01-24 07:11] LABS: ALT 30 U/L (12-78); AST 45 U/L (15-37); Albumin 3.7 g/dL (3.4-5.0); Alkaline Phosphatase 66 U/L (46-116); Anion Gap 10.6 mmol/L (3-11); BUN 6 mg/dL (7-18); Bilirubin, Total 1.1 mg/dL (0.2-1.0); CO2 23.4 mmol/L (21.0-32.0); CREATININE 0.64 mg/dL (0.70-1.30); Chloride 101 mmol/L (98-107); Glucose 114 mg/dL (70-100); Potassium 3.3 mmol/L (3.5-5.1); Sodium 135 mmol/L (136-145); Total Protein 7.2 g/dL (6.4-8.2)
[2019-01-24 07:30] LABS: Platelet Count 91 x1000/uL (130-400)
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
[2019-01-24] MEDS: Multivitamin TAB 1 TAB PO (09:23)
[2019-01-24] MEDS: Sucralfate 1 GM TAB PO ×4 (09:23→21:21)
[2019-01-24 11:09] LABS: Creatine Kinase 843 U/L (39-308)
--- NOTE | 2019-01-24 11:14 | PHARADMIT ---
Addendum entered by Molly Cai 01/27/19 15:42: Pharmacy Note Subjective pt feels that he is getting better per CM note Objective BP-140/102 other VS okay K+3.4 mag-1.6 plt-90 (down) pt is on enoxaparin Assessment banana bag changed to po meds (multivitamin, thiamine, folic acid) mag and K+ replacement give IV lorazepam orders for CIWA changed to PO Plan watch platelets Addendum entered by Pamella Adames 01/26/19 13:32: Pharmacy Note Subjective alert , orientated trying to get out of bed, 4-5 days out from last drink Objective ciwa 2,11. PLT 95, Assessment banana bag daily continues Plan continue CIWA regimen Original Note: Admission Pharmacy Clinical Review WITHDRAWAL SEIZURE (On CIWA protocol) ? aspiration) (Hx TBI & GI Bleed) Code Status Full Code Current Weight Wgt-105.9 kg Renally Cleared and Narrow Therapeutic Index Meds CrCl~ 105 mL/min Meds-OK QTc Value / Action Taken QTc-474 (Protonix) BP Control, Fever BP- 136/85 Tmax- 37.3C Electrolytes reviewed Na- 135 K+3.3 Mag-2.0 DVT Prophylaxis none- Low Plts Has TEDS,SCDs Opiate Usage / Scheduled Bowel Regimen Ordered No No Plt/SCr for Heparin / Enoxaparin Plts-91 SCr-0.64 INR for Warfarin INR-1.0 H/H stable, WBC/Bands H&H- 15.0/42.0 WBC- 6.01 Antibiotic appropriateness none Cultures and Sensitivities none Surgical ABX d/c within 24 hr na DM control / Insulin Dosing BG- 114 Heart Failure (Check EF%) (MENDY's, B-Block, Diuretics) none IV to PO Switch No Home Meds Reviewed Yes Home Meds Not Ordered Thiamine Comments [id number])
[2019-01-24] MEDS: Potassium Chloride 20 MEQ TABCR 40 MEQ PO (11:32)
--- NOTE | 2019-01-24 12:14 | DI.RAD_ITS ---
SYMPTOMS/DIAGNOSIS: ASPIRATION PNEUMONIA PORTABLE AP CHEST: The heart is not enlarged. The lungs are clear and well expanded. CONCLUSION: No evidence of acute disease.
--- NOTE | 2019-01-24 13:38 | PT.INIE ---
Date of service: 01/24/19 Time of Service: 12:45 PT Notes Inpatient Physical Therapy Evaluation Date: 01/24/19 Referring Doctor: Dr. Canales PT Orders: PT CONSULT: eval and treat Precautions: fall, standard Patient Profile/Admitting Diagnosis: Patient admitted due to alcohol withdrawal seizure. He's currently being monitored in the ICU on CICO protocol. PMHX: Essential hypertension, Alcohol abuse (Chronic),Alcoholic gastritis,Alcoholic liver disease, Anemia, Cannabis abuse, Cholelithiasis, History of atrial fibrillation with rapid ventricular response, Thrombocytopenia, TBI s/p craniotomy Social History/Home Situation: Patient is currently experiencing homelessness, and residing at the [facility]. Equipment Owned/DME: None Subjective: Patient reports that he is feeling well today. He states that he has been getting up approximately every 20 minutes to use the commode, with assistance from nursing. He states that he typically ambulates independently, generally walking 1-3 miles per day. He denies history of balance issues. Objective: General Observation: Resting in bed with telemetry in place, IV to right upper extremity, blood pressure cuff to left upper extremity. Mental Status: Alert and oriented to time and place. Patient is unsure of the circumstances surrounding his admission. Provides vague answers to majority of questions. When asked about fall history, patient laughs and rolls his eyes. Pain: Denies ROM: Right Upper Extremity: Shoulder flexion allows 170 degrees. Elbow and wrist motions are grossly WFL Left Upper Extremity: Shoulder flexion allows 170 degrees. Elbow and wrist motions are grossly WFL Right Lower Extremity: WFL Left Lower Extremity: WFL Strength: Right Upper Extremity: Shoulder flexion 4+/5. Biceps 5/5. Doors Prefitter strong and equal Left Upper Extremity: Shoulder flexion 4+/5. Biceps 5/5. Doors Prefitter strong and equal Right Lower Extremity: Hip flexion 5/5. Quads 5/5. Ankle dorsiflexion 5/5. Left Lower Extremity: Hip flexion 5/5. Quads 5/5. Ankle dorsiflexion 5/5. Neuro: Visual tracking is normal, although patient requires max cues for appropriate completion. He demonstrates diminished coordination with rapid alternating movements of both the upper and lower extremities. Fine motor is slightly diminished with thumb to digit tapping, again requiring max cues for completion. Kinesthetic awareness is markedly reduced for the upper extremities. There is no tremor noted. Bed Mobility/Transfers: Supine to sit: Supervision with head of bed at 30 degrees. Patient demonstrates poor safety awareness and requires assistance for management of lines. Sit to supine: Supervision with head of bed at 30 degrees. Patient demonstrates poor safety awareness and requires assistance for management of lines. Sit to stand: Supervision, again with poor safety awareness and need for cues for safety. Stand to sit: Supervision Gait: Patient is unsafe for ambulation due to poor safety awareness. When asked to stand from bed, he immediately initiates forward steps, stumbling and reaching for furniture. He requires cues for safety. Balance: Static Sitting: normal Dynamic Sitting: good Static Standing: fair Dynamic Standing: poor Special Tests: Mobility Limitations Standardized Measure [facility] AM-PAC 6 clicks Basic Mobility Inpatient Short Form: Raw Score: 16 CMS Score: 54% Informed Consent/Education: Patient instructed in purpose of PT consult and plan of care. Assessment: Patient is a 58 year old male referred to physical therapy services with the diagnosis of PT evaluation and treatment for patient admitted due to alcoholic ketoacidosis. Patient presents with clinical signs and symptoms consistent with diagnosis, with limited safety awareness and mobility issues related to diagnosis. He currently demonstrates the following impairment level findings: 1. Poor safety awareness 2. Decreased coordination 3. Decreased kinesthetic awareness 4. Decreased fine motor skills 5. Decreased balance Impairments are contributing to the following functional limitations: 1. Unable to safely ambulate independently 2. Unable to safely transfer Patient is assessed as a High [id number] complexity based on the following: History: 58-year-old male admitted for alcohol withdrawal seizure. He has a complicated medical history including alcoholism with cirrhosis, chronic anemia, history of TBI and atrial fibrillation. He has additional social components including current homelessness, which will likely complicate discharge planning. Examination: Functional limitations as noted above Presentation: Unstable and currently monitored on [facility] protocol Decision Making: high complexity Goals: Goals X1 week 1. Supine-Sit independent 2. Sit-Supine independent 3. Sit-Stand independent 4. Stand-Sit independent 5. Bed-Chair independent 6. Chair-Bed independent 7. Gait independent X 100' Plan of Care/Treatment Plan: 1-2x/day, 7 days/week x 1 week. Plan of care has been reviewed with the [employer] providing the service under Physical Therapy direction. Initiate Physical Therapy intervention for strengthening, bed mobility, transfers, gait, stairs, balance training, use of assistive device. DISCHARGE RECOMMENDATIONS: No equipment needs anticipated. TREATMENT CODE/TIME: 20 minutes (07636)
--- NOTE | 2019-01-24 18:32 | PGE_ITS ---
Date of Service Date of service: 01/24/19 Time of Service: 11:30 Assessment and Plan (1) Alcohol withdrawal seizure: Current visit: No Status: Resolved Continue scheduled cerax. Continue banana bag, CIWA, prn ativan. Would monitor in the ICU x 24 more hours monitoring for seizures. Agree with not initiating anticonvulsant therapy at this point. (2) Alcoholic gastritis without bleeding: Current visit: No Status: Acute Continue PPI and carafate. Agree that NSAIDs as outpatient could have also contributed. Improved, tolerating PO, hemoccult negative. (3) Alcohol dependence: Current visit: No Status: Acute Patient is interested in going to a sober house on discharge - case management aware (4) Alcoholic ketoacidosis: Current visit: Yes Status: Acute Resolved with PO diet. (5) Paroxysmal atrial fibrillation with rapid ventricular response: Current visit: No Status: Chronic No anticoagulation as the patient is unlikely to be compliant (6) Ataxia: Current visit: No Status: Acute PT/OT consults (7) Lactic acidosis: Current visit: Yes Status: Resolved Due to a seizure. No further workup. (8) Thrombocytopenia: Current visit: Yes Status: Chronic Likely due to EtOH/cirrhosis/splenic consumption of the platelets. No NSAIDs/chemical DVT ppx. Monitor (9) Ambulatory dysfunction: Current visit: Yes Status: Acute PT/OT consults (10) Discharge planning issues: Current visit: Yes Status: Acute Full code Case management on board with helping the patient go to a sober home (11) DVT prophylaxis: Current visit: Yes Status: Acute SCDs + TEDs Subjective Interval history since last seen: Feels better. No seizure events since arrival to ICU. Denies dizziness, chest pain, shortness of breath, nausea, vomiting. Sinus arrhythmia on tele Exam Narrative Exam Narrative: General: very pleasant/cooperative middle-aged male, laying comfortably in bed HEENT: EOMI, MMM Heart: irregularly irregular rhythm, no m/r/g Lungs: CTAB GI: abdomen is soft, nontender, nondistended Extremities: no e/c/c BLE's Objective Objective Clinical Data: Abnormal lab results 01/23/19 01/23/19 01/24/19 Range/Units 22:42 22:42 06:30 Plt Count (130-400) x1000/uL Absolute Monocytes (0.11-0.7) k/cumm VBG pH 7.45 H (7.32-7.43) VBG pO2 91 H (28-44) mm/Hg VBG O2 Saturation 98 H (70-80) % Sodium 135 L (136-145) mmol/L Potassium 3.3 L 3.3 L (3.5-5.1) mmol/L Anion Gap 11.1 H (3-11) mmol/L BUN 6 L (7-18) mg/dL Creatinine 0.66 L 0.64 L (0.70-1.30) mg/dL Glucose 115 H 114 H (70-100) mg/dL Calcium 8.0 L 8.0 L (8.5-10.1) mg/dL Phosphorus (2.6-4.7) mg/dL Total Bilirubin 1.1 H (0.2-1.0) mg/dL AST 45 H (15-37) U/L Creatine Kinase (39-308) U/L 01/24/19 01/24/19 01/24/19 Range/Units 06:30 06:30 06:30 Plt Count 91 L (130-400) x1000/uL Absolute Monocytes 0.77 H (0.11-0.7) k/cumm VBG pH (7.32-7.43) VBG pO2 (28-44) mm/Hg VBG O2 Saturation (70-80) % Sodium (136-145) mmol/L Potassium (3.5-5.1) mmol/L Anion Gap (3-11) mmol/L BUN (7-18) mg/dL Creatinine (0.70-1.30) mg/dL Glucose (70-100) mg/dL Calcium (8.5-10.1) mg/dL Phosphorus 2.0 L (2.6-4.7) mg/dL Total Bilirubin (0.2-1.0) mg/dL AST (15-37) U/L Creatine Kinase 843 H (39-308) U/L Vital Signs Temperature 36.2 C L 01/24/19 16:10 Temperature Source Temporal Artery Scan 01/24/19 16:10 Pulse 82 01/24/19 16:10 Pulse 80 01/24/19 16:01 Respiratory Rate 19 01/24/19 16:10 Respiratory Effort 01/24/19 16:10 Respiratory Depth Normal 01/24/19 16:10 Respiratory Pattern Normal 01/24/19 16:10 Blood Pressure 128/84 01/24/19 16:10 Blood Pressure Mean 98 01/24/19 16:10 Blood Pressure Position Supine 01/24/19 16:10 Pulse Oximetry 100 01/24/19 16:10 Oxygen Delivery Method Room Air 01/24/19 16:10 Oxygen Flow Rate 0 01/24/19 16:10 Pain Level 0 01/24/19 16:10 Intake & Output 01/23/19 01/24/19 01/24/19 23:59 11:59 23:59 Intake Total 1999 2073.033 / 2253.033 180 / 2253.033 Output Total 900 / 900 2700 / 3775 1075 / 3775 Balance 1100 / 1100 -626.967 / -1521.967 -895 / -1521.967 Weight 106.2 kg 105.9 kg Intake: IV 1999 1713.033 / 1713.033 Oral 360 / 540 180 / 540 Output: Urine 900 / 900 2700 / 3775 1075 / 3775 Other: Urine Color Light Makayla Straw Yellow Urine Appearance Clear Clear Cloudy Urine Odor Normal None Normal Comment PVR 29. Using urinal at bedside, urine dip unremarkable. Stool Occult Blood Negative Stool Size Smear Stool Characteristics Brown Voiding Methods Bedside Commode Urinal Urinal Urinal Incontinent Laboratory Results WBC 6.01 k/cumm (4.4-10.8) 01/24/19 06:30 RBC 4.71 m/cumm (4.50-6.00) 01/24/19 06:30 Hgb 15.0 g/dL (13.5-17.5) 01/24/19 06:30 Hct 42.0 % (40.0-50.0) 01/24/19 06:30 MCV 89.2 fL (80-95) 01/24/19 06:30 MCH 31.8 pg (27.0-33.0) 01/24/19 06:30 MCHC 35.7 g/dL (32.0-36.0) 01/24/19 06:30 RDW 13.0 % (11.8-14.1) 01/24/19 06:30 Plt Count 91 x1000/uL (130-400) L 01/24/19 06:30 MPV 10.3 fL (8.0-11.0) 01/24/19 06:30 Immature Gran % 0.3 01/24/19 06:30 Neutrophils % 61.9 01/24/19 06:30 Lymphocytes % 24.5 01/24/19 06:30 Monocytes % 12.8 01/24/19 06:30 Eosinophils % 0.2 01/24/19 06:30 Basophils % 0.3 01/24/19 06:30 Absolute Neutrophils 3.72 k/cumm (1.2-6.7) 01/24/19 06:30 Absolute Lymphocytes 1.47 k/cumm (1.2-3.4) 01/24/19 06:30 Absolute Monocytes 0.77 k/cumm (0.11-0.7) H 01/24/19 06:30 Absolute Eosinophils 0.01 k/cumm (0.0-0.7) 01/24/19 06:30 Absolute Basophils 0.02 k/cumm (0.0-0.2) 01/24/19 06:30 PT 10.1 sec (9.3-11.0) 01/24/19 06:30 INR 1.0 (0.9-1.1) 01/24/19 06:30 VBG pH 7.45 (7.32-7.43) H 01/23/19 22:42 VBG pCO2 37 mm/Hg (34-47) 01/23/19 22:42 VBG pO2 91 mm/Hg (28-44) H 01/23/19 22:42 VBG HCO3 26 mmol/L (22-28) 01/23/19 22:42 VBG Total CO2 23 mmol/L (22-29) 01/23/19 22:42 VBG O2 Saturation 98 % (70-80) H 01/23/19 22:42 VBG Base Excess 1.8 mmol/L (-3-3) 01/23/19 22:42 Sodium 135 mmol/L (136-145) L 01/24/19 06:30 Potassium 3.3 mmol/L (3.5-5.1) L 01/24/19 06:30 Chloride 101 mmol/L (98-107) 01/24/19 06:30 Carbon Dioxide 23.4 mmol/L (21.0-32.0) 01/24/19 06:30 Anion Gap 10.6 mmol/L (3-11) 01/24/19 06:30 BUN 6 mg/dL (7-18) L 01/24/19 06:30 Creatinine 0.64 mg/dL (0.70-1.30) L 01/24/19 06:30 Estimated GFR/1.73 m2 >= 60.00 (mL/min/1.73m2) 01/24/19 06:30 Glucose 114 mg/dL (70-100) H 01/24/19 06:30 Lactate 0.8 mmol/L (0.6-1.4) 01/23/19 22:42 Calcium 8.0 mg/dL (8.5-10.1) L 01/24/19 06:30 Phosphorus 2.0 mg/dL (2.6-4.7) L 01/24/19 06:30 Magnesium 2.0 mg/dL (1.8-2.4) 01/24/19 06:30 Total Bilirubin 1.1 mg/dL (0.2-1.0) H 01/24/19 06:30 AST 45 U/L (15-37) H 01/24/19 06:30 ALT 30 U/L (12-78) 01/24/19 06:30 Alkaline Phosphatase 66 U/L (46-116) 01/24/19 06:30 Creatine Kinase 843 U/L (39-308) H 01/24/19 06:30 Troponin I < 0.02 ng/mL (0.00-0.06) 01/23/19 15:25 Total Protein 7.2 g/dL (6.4-8.2) 01/24/19 06:30 Albumin 3.7 g/dL (3.4-5.0) 01/24/19 06:30 TSH 2.80 uIU/mL (0.358-3.74) 01/23/19 14:04 Urine Color Yellow (Yellow) 01/23/19 16:30 Urine Clarity Clear 01/23/19 16:30 Urine pH 5.5 (5-8) 01/23/19 16:30 Ur Specific [place] 1.025 (1.005-1.025) 01/23/19 16:30 Urine Protein 100 mg/dL (Negative) H 01/23/19 16:30 Urine Ketones 40 mg/dL (Negative) H 01/23/19 16:30 Urine Blood Trace-lysed (Negative) H 01/23/19 16:30 Urine Nitrite Negative (Negative) 01/23/19 16:30 Urine Bilirubin Negative (Negative) 01/23/19 16:30 Urine Urobilinogen 0.2 EU/dL (Up TO 0.2) 01/23/19 16:30 Ur Leukocyte Esterase Negative (Negative) 01/23/19 16:30 Urine RBC 0-2 (0-2) 01/23/19 16:30 Urine WBC 0-2 HPF (0-5) 01/23/19 16:30 Ur Epithelial Cells Rare HPF (Negative) 01/23/19 16:30 Urine Crystals Negative HPF (Negative) 01/23/19 16:30 Urine Bacteria Negative HPF (Negative) 01/23/19 16:30 Urine Casts Negative LPF (Negative) 01/23/19 16:30 Urine Mucus Trace (Negative) 01/23/19 16:30 Ur Culture Indicated? No 01/23/19 16:30 Urine Glucose Negative mg/dL (Negative) 01/23/19 16:30 Salicylates < 2.8 mg/dL (2.8-20.0) L 01/23/19 14:04 Urine Opiates Screen Negative (Negative) 01/23/19 16:30 Urine Methadone Screen Negative (Negative) 01/23/19 16:30 Ur Barbiturates Screen Negative (Negative) 01/23/19 16:30 Ur Tricyclics Screen Negative (Negative) 01/23/19 16:30 Ur Amphetamines Screen Negative (Negative) 01/23/19 16:30 U Benzodiazepines Scrn Negative (Negative) 01/23/19 16:30 Urine Cocaine Screen Negative (Negative) 01/23/19 16:30 Ur THC Screen Positive (Negative) 01/23/19 16:30 Ethyl Alcohol 51.6 mg/dL (<3) 01/23/19 14:04 CXR: No evidence of acute disease.
[2019-01-24] MEDS: Normal Saline 1,000 ML 150 ML IV (19:54)
[2019-01-25] VITALS (35 sets, daily range): BP systolic 127–165; BP diastolic 77–146; PULSE 58–112; RESP 12–31; TEMP 36.3–36.6; O2SAT 95–100
[2019-01-25] MEDS: Pantoprazole 40 MG VIAL IVP ×2 (00:03→23:17)
[2019-01-25] MEDS: Normal Saline Flush 10 ML SYR IVP ×3 (00:04→23:17)
[2019-01-25] MEDS: LORazepam 2 MG/ML VIAL IVP ×3 (02:34→23:18)
[2019-01-25] MEDS: Normal Saline 1,000 ML 150 ML IV ×3 (02:34→23:34)
[2019-01-25] MEDS: Sucralfate 1 GM TAB PO ×4 (08:03→22:02)
[2019-01-25] MEDS: Multivitamin TAB 1 TAB PO (08:03)
--- NOTE | 2019-01-25 10:31 | PT.INTREAT ---
Date of service: 01/25/19 Time of Service: 10:00 PT Notes Inpatient Physical Therapy Treatment Note [facility] Date: 01/25/19 PRECAUTIONS: fall, standard SUBJECTIVE: Jemal states that he's feeling well this morning. His left knee is bothering him, which he states is normal. States that the knee ivette intermittently, and creates pain throughout the day. OBJECTIVE: PAIN: left knee BED MOBILITY/TRANSFERS Rolling L/R: independent Supine-sit: supervision Sit-supine: supervision Sit-stand: supervision with assistance for management of lines Stand-sit: supervision GAIT Assistive Device: none, although patient holds IV pole Weight bearing: full Assist: CG Distance: 60' Deviation: significant ataxia, with poor foot clearance bilaterally, and poor right foot placement. He has path deviation and poor management of obstacles. THEREX: Patient was instructed in balance and coordination activities in both seated and standing position, as noted on flowsheet. Introduced alternating arm and leg lifts, with patient requiring max cues and demonstrating poor accuracy. He tolerates introduction of small LAKESHA standing activities with dynamic movement patterns, all with CGA. ASSESSMENT: Patient demonstrating significant ataxia and reporting history of left knee instability. Will try a single crutch in RUE tomorrow for added stability. PLAN: Continue progressing balance and gait/transfer training as he's able to tolerate. TREATMENT CODE/TIME: 10:00-10:25 ([id number])
[2019-01-25 11:57] LABS: Abs Immature Grans 0.01 k/cumm (0.0-0.09); Absolute Basophil Count 0.01 k/cumm (0.0-0.2); Absolute Eosinophil Count 0.03 k/cumm (0.0-0.7); Absolute Lymphocyte Count 1.24 k/cumm (1.2-3.4); Absolute Monocyte Count 0.66 k/cumm (0.11-0.7); Absolute Neutrophil Count 3.26 k/cumm (1.2-6.7); Basophils % 0.2; Eosinophils % 0.6; HGB 16.3 g/dL (13.5-17.5); Immature Grans % 0.2; Lymphocytes % 23.8; Mean Corp. HGB Concentration 36.2 g/dL (32.0-36.0); Mean Corpuscular Hemoglobin 31.9 pg (27.0-33.0); Mean Corpuscular Volume 88.1 fL (80-95); Mean Platelet Volume 10.6 fL (8.0-11.0); Monocytes % 12.7; Neutrophils % 62.5; RBC 5.11 m/cumm (4.50-6.00); RBC Distribution Width 13.4 % (11.8-14.1); White Blood Cell Count 5.21 k/cumm (4.4-10.8)
[2019-01-25 12:00] LABS: Anion Gap 9.4 mmol/L (3-11); BUN 4 mg/dL (7-18); CO2 20.6 mmol/L (21.0-32.0); CREATININE 0.61 mg/dL (0.70-1.30); Calcium 9.2 mg/dL (8.5-10.1); Chloride 103 mmol/L (98-107); Glucose 109 mg/dL (70-100); Magnesium 2.1 mg/dL (1.8-2.4); Sodium 133 mmol/L (136-145)
[2019-01-25 12:24] LABS: Platelet Count 86 x1000/uL (130-400)
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
--- NOTE | 2019-01-25 18:55 | PDOC.CMPRO ---
Care Management Progress Note s/o: Jemal would like to go to [facility] when medically cleared for discharge. A: 58 yo male admitted for alcohol withdrawal and seizures. P: Currently homeless. Will try to seek placement at a facility that deals with Addictions rehabilitation.
--- NOTE | 2019-01-25 18:58 | CMPROGNOTE_ITS ---
Care Management Progress Note s/o: Jemal would like to go to [facility] when medically cleared for discharge. A: 58 yo male admitted for alcohol withdrawal and seizures. P: Currently homeless. Will try to seek placement at a facility that deals with Addictions rehabilitation.
[2019-01-26] VITALS (29 sets, daily range): BP systolic 111–194; BP diastolic 75–139; PULSE 61–95; RESP 15–29; TEMP 36.1–37.2; O2SAT 96–98
[2019-01-26] MEDS: LORazepam 2 MG/ML VIAL IVP (03:14)
[2019-01-26] MEDS: Normal Saline 1,000 ML 150 ML IV (05:22)
[2019-01-26] MEDS: Sucralfate 1 GM TAB PO ×4 (09:20→23:28)
[2019-01-26] MEDS: Multivitamin TAB 1 TAB PO (09:20)
[2019-01-26 11:02] LABS: Abs Immature Grans 0.01 k/cumm (0.0-0.09); Absolute Basophil Count 0.02 k/cumm (0.0-0.2); Absolute Eosinophil Count 0.04 k/cumm (0.0-0.7); Absolute Lymphocyte Count 1.62 k/cumm (1.2-3.4); Absolute Monocyte Count 0.68 k/cumm (0.11-0.7); Basophils % 0.3; Eosinophils % 0.6; HCT 45.8 % (40.0-50.0); HGB 16.5 g/dL (13.5-17.5); Immature Grans % 0.2; Lymphocytes % 25.8; Mean Corpuscular Hemoglobin 31.8 pg (27.0-33.0); Mean Corpuscular Volume 88.2 fL (80-95); Mean Platelet Volume 10.8 fL (8.0-11.0); Monocytes % 10.8; Neutrophils % 62.3; RBC 5.19 m/cumm (4.50-6.00); RBC Distribution Width 13.2 % (11.8-14.1); White Blood Cell Count 6.27 k/cumm (4.4-10.8)
[2019-01-26 11:04] LABS: Platelet Count 95 x1000/uL (130-400)
--- NOTE | 2019-01-26 11:20 | PT.INTREAT ---
Date of service: 01/26/19 Time of Service: 10:10 PT Notes Inpatient Physical Therapy Treatment Note [facility] Date: 01/26/19 SUBJECTIVE: Nsg reports Jemal is very unsteady on feet today. Jemal indicated that he felt dizzy, which seems to get worse with standing. OBJECTIVE: [] BED MOBILITY/TRANSFERS Sit-stand: S Stand-sit: S GAIT held on ambulation today due to increase in unsteadiness as well as increased c/o dizziness. THEREX: for global LE strengthening, in seated and standing positions. I also incorporated balance ex, both static and dynamic in seated and standing positions. See flowsheet for specific ex details. He required CGA with standing balance ex. ASSESSMENT: tolerated session fairly well, despite increased c/o dizziness. PLAN: will continue to progress his overall strength and balance as well as functional mobility following PT POC. TREATMENT CODE/TIME: 25 min. TPx1, NREx1.
[2019-01-26 11:25] LABS: ALT 44 U/L (12-78); AST 50 U/L (15-37); Albumin 3.9 g/dL (3.4-5.0); Alkaline Phosphatase 70 U/L (46-116); Anion Gap 11.5 mmol/L (3-11); BUN 5 mg/dL (7-18); Bilirubin, Total 1.3 mg/dL (0.2-1.0); CO2 25.5 mmol/L (21.0-32.0); CREATININE 0.79 mg/dL (0.70-1.30); Calcium 9.1 mg/dL (8.5-10.1); Chloride 103 mmol/L (98-107); Glucose 114 mg/dL (70-100); Potassium 3.5 mmol/L (3.5-5.1); Sodium 140 mmol/L (136-145); Total Protein 7.3 g/dL (6.4-8.2)
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
--- NOTE | 2019-01-26 15:09 | PDOC.CMPRO ---
Care Management Progress Note /o: Jemal would still like to go to [facility] when medically cleared for discharge. States he has made contact with them and they will call back for an intake. They have his cell phone number. A: 58 yo male admitted for alcohol withdrawal and seizures. Homeless at this time but can stay with a friend when discharged and waiting for admission to [facility]. P: Will try to seek placement at a facility that deals with Addictions rehabilitation. Jemal made initial contact with [facility]. He will need transportation.
--- NOTE | 2019-01-26 15:25 | CMPROGNOTE_ITS ---
Care Management Progress Note /o: Jemal would still like to go to [facility] when medically cleared for discharge. States he has made contact with them and they will call back for an intake. They have his cell phone number. A: 58 yo male admitted for alcohol withdrawal and seizures. Homeless at this time but can stay with a friend when discharged and waiting for admission to [facility]. P: Will try to seek placement at a facility that deals with Addictions rehabilitation. Jemal made initial contact with [facility]. He will need transportation.
[2019-01-26] MEDS: Gabapentin 400 MG CAP 800 MG PO (20:31)
[2019-01-26] MEDS: Enoxaparin 40 MG/0.4 ML SYR SC (20:31)
[2019-01-26] MEDS: Pantoprazole 40 MG VIAL IVP (23:28)
[2019-01-26] MEDS: Normal Saline Flush 10 ML SYR IVP (23:28)
[2019-01-27] VITALS (19 sets, daily range): BP systolic 140–158; BP diastolic 91–102; PULSE 57–98; RESP 11–29; TEMP 36.2–36.9; O2SAT 88–97
[2019-01-27 07:48] LABS: Abs Immature Grans 0.01 k/cumm (0.0-0.09); Absolute Basophil Count 0.01 k/cumm (0.0-0.2); Absolute Eosinophil Count 0.09 k/cumm (0.0-0.7); Absolute Lymphocyte Count 1.92 k/cumm (1.2-3.4); Absolute Monocyte Count 0.82 k/cumm (0.11-0.7); Absolute Neutrophil Count 2.78 k/cumm (1.2-6.7); Basophils % 0.2; Eosinophils % 1.6; HCT 42.8 % (40.0-50.0); HGB 15.4 g/dL (13.5-17.5); Immature Grans % 0.2; Lymphocytes % 34.1; Mean Corpuscular Hemoglobin 31.7 pg (27.0-33.0); Mean Corpuscular Volume 88.1 fL (80-95); Mean Platelet Volume 10.9 fL (8.0-11.0); Monocytes % 14.6; Neutrophils % 49.3; RBC 4.86 m/cumm (4.50-6.00); RBC Distribution Width 13.3 % (11.8-14.1); White Blood Cell Count 5.63 k/cumm (4.4-10.8)
--- NOTE | 2019-01-27 07:53 | PDOC.CMPRO ---
- If Service Date Differs Date of service: 01/27/19 Time of Service: 07:54 Care Management Progress Note S/O: Jemal was sitting up in bed willing to converse with CM during visit. He noted that he is no longer sweating and showed me that his hands were not tremulous. He feels he is getting better. He has made contact with [facility] and is waiting to hear whether or not he will be accepted. He has the ability to stay with friends, short term, when he leaves the hospital. He plans to contact his bank to see how much money he has available and will try to find housing on his own. He says his friend will help with that too. A: 58 yo male admitted for alcohol withdrawal and seizures. Homeless at this time but can stay with a friend when discharged and waiting for admission to [facility]. P: Seeking inpatient substance abuse treatment.Will try to seek placement at a facility that deals with Addictions rehabilitation. Jemal made initial contact with [facility]. He will require transportation. CM will continue to support.
[2019-01-27 08:08] LABS: ALT 42 U/L (12-78); AST 42 U/L (15-37); Albumin 3.4 g/dL (3.4-5.0); Alkaline Phosphatase 65 U/L (46-116); Anion Gap 7.9 mmol/L (3-11); BUN 9 mg/dL (7-18); Bilirubin, Total 0.9 mg/dL (0.2-1.0); CO2 27.1 mmol/L (21.0-32.0); CREATININE 0.72 mg/dL (0.70-1.30); Calcium 9.1 mg/dL (8.5-10.1); Chloride 104 mmol/L (98-107); Glucose 100 mg/dL (70-100); Magnesium 1.6 mg/dL (1.8-2.4); Potassium 3.4 mmol/L (3.5-5.1); Sodium 139 mmol/L (136-145)
[2019-01-27 08:16] LABS: Diff Comment PLT Morph Reviewed; Platelet Count 90 x1000/uL (130-400); RBC Morphology Normal
[2019-01-27] MEDS: Sucralfate 1 GM TAB PO ×4 (08:20→22:39)
[2019-01-27] MEDS: Multivitamin TAB 1 TAB PO (08:21)
[2019-01-27] MEDS: Gabapentin 400 MG CAP 800 MG PO ×2 (08:21→20:10)
--- NOTE | 2019-01-27 10:28 | PT.INTREAT ---
Date of service: 01/27/19 Time of Service: 10:29 PT Notes Inpatient Physical Therapy Treatment Note [facility] Date: 01/27/19 PRECAUTIONS: Fall, CIWA SUBJECTIVE: Jemal reports that he feels dizzy this morning, although is agreeable to participating in PT. OBJECTIVE: PAIN: No c/o pain BED MOBILITY/TRANSFERS Supine-sit: I Sit-supine: I Sit-stand: S Stand-sit: S GAIT Assistive Device: R ax crutch Weight bearing: Full Assist: CGA Distance: 80' x2 in a.m.; 60' + 120' in p.m. Deviation: LOB x3 with self-recovery, dizziness, seated rest NEURO RE-ED: Patient completed a standing static and dynamic balance retraining program, as per flow sheet. Patient required CGA/close SBA for safety due to balance impairment. STAIRS: Up/down 3x4 and 2x6 using 1 rail/1 ax crutch and a step-to pattern with CGA (in a.m.) SBA (in p.m.) ASSESSMENT: Patient tolerated session with c/o dizziness. He was able to tolerate a progression in gait distance with unilateral UE support. He would benefit from continued gait and balance retraining for improved mobility, as well as continued strengthening for improved activity tolerance. PLAN: Continue with PT's POC TREATMENT CODE/TIME: Session 1: 30 minutes; 41708, 18615 Session 2: 20 minutes; 03145
[2019-01-27] MEDS: MAGNESIUM SULFATE 2 GM/50 ML BAG IVPB (11:07)
[2019-01-27] MEDS: Potassium Chloride 20 MEQ TABCR 40 MEQ PO ×2 (11:08→17:38)
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
[2019-01-27] MEDS: Enoxaparin 40 MG/0.4 ML SYR SC (20:10)
[2019-01-28] VITALS (16 sets, daily range): BP systolic 121–142; BP diastolic 70–103; PULSE 52–76; RESP 14–16; TEMP 36–36.7; O2SAT 95–98
[2019-01-28] MEDS: Pantoprazole 40 MG VIAL IVP ×2 (00:02→23:36)
[2019-01-28] MEDS: Normal Saline Flush 10 ML SYR IVP ×2 (00:03→23:37)
[2019-01-28] MEDS: Acetaminophen 500 MG TAB 1000 MG PO (00:34)
[2019-01-28 06:38] LABS: Abs Immature Grans 0.02 k/cumm (0.0-0.09); Absolute Basophil Count 0.02 k/cumm (0.0-0.2); Absolute Eosinophil Count 0.12 k/cumm (0.0-0.7); Absolute Lymphocyte Count 2.35 k/cumm (1.2-3.4); Absolute Monocyte Count 0.65 k/cumm (0.11-0.7); Absolute Neutrophil Count 2.28 k/cumm (1.2-6.7); Basophils % 0.4; Eosinophils % 2.2; HCT 43.6 % (40.0-50.0); HGB 15.8 g/dL (13.5-17.5); Immature Grans % 0.4; Lymphocytes % 43.2; Mean Corp. HGB Concentration 36.2 g/dL (32.0-36.0); Mean Corpuscular Volume 88.3 fL (80-95); Mean Platelet Volume 10.6 fL (8.0-11.0); Monocytes % 11.9; Neutrophils % 41.9; Platelet Count 91 x1000/uL (130-400); RBC 4.94 m/cumm (4.50-6.00); RBC Distribution Width 13.4 % (11.8-14.1); White Blood Cell Count 5.44 k/cumm (4.4-10.8)
[2019-01-28 07:03] LABS: ALT 53 U/L (12-78); AST 49 U/L (15-37); Albumin 3.3 g/dL (3.4-5.0); Alkaline Phosphatase 69 U/L (46-116); Anion Gap 10.3 mmol/L (3-11); BUN 15 mg/dL (7-18); Bilirubin, Total 0.8 mg/dL (0.2-1.0); CO2 25.7 mmol/L (21.0-32.0); CREATININE 0.87 mg/dL (0.70-1.30); Calcium 9.2 mg/dL (8.5-10.1); Chloride 103 mmol/L (98-107); Glucose 104 mg/dL (70-100); Magnesium 1.7 mg/dL (1.8-2.4); Potassium 3.9 mmol/L (3.5-5.1); Sodium 139 mmol/L (136-145); Total Protein 7.2 g/dL (6.4-8.2)
--- NOTE | 2019-01-28 07:55 | PDOC.CMPRO ---
- If Service Date Differs Date of service: 01/28/19 Time of Service: 07:56 Care Management Progress Note S/O: Jemal was sitting up in bed during CM visit. We discussed the fact that he had a bed at [facility] yesterday, however that bed is no longer available. When he is ready to be discharged, he will need to stay with a friend for a few days, until a bed is again available. CM spoke with Amy at [facility] this morning and they will need a referral and a faxed H&P and Discharge Summary before he is able to go. A release of information form was faxed to them as well to enable arrangements to be made with Medicaid for transport when ready. CM also worked with Jemal to update HIPAA form to include Dwayne Churchill, his friend and advocate. A: 58 yo male admitted for alcohol withdrawal and seizures. Homeless at this time but can stay with a friend when discharged and waiting for admission to [facility]. P: Jemal had contacted [facility] last week for inpatient treatment of his alcohol and drug addictions and had been given a bed for yesterday. Unfortunately that information was not shared and the bed is no longer available. Jemal will likely be discharged home to stay with a friend until a bed can become available for him. CM will continue to support.
[2019-01-28] MEDS: Thiamine 100 MG TAB PO (09:01)
[2019-01-28] MEDS: Sucralfate 1 GM TAB PO ×4 (09:01→21:29)
[2019-01-28] MEDS: Multivitamin TAB 1 TAB PO (09:01)
[2019-01-28] MEDS: Folic Acid 1 MG TAB PO (09:01)
[2019-01-28] MEDS: Gabapentin 400 MG CAP 800 MG PO (09:01)
--- NOTE | 2019-01-28 10:40 | PT.INTREAT ---
Date of service: 01/28/19 Time of Service: 10:41 PT Notes Inpatient Physical Therapy Treatment Note [facility] Date: 01/27/19 PRECAUTIONS: Fall, CIWA SUBJECTIVE: Jemal reports that he is feeling less dizzy this morning, although is still reporting some dizziness. OBJECTIVE: PAIN: No c/o pain BED MOBILITY/TRANSFERS Supine-sit: I Sit-supine: I Sit-stand: I Stand-sit: I GAIT Assistive Device: No AD Weight bearing: Full Assist: SBA Distance: 300' Deviation: Path deviation with self-correction NEURO RE-ED: Patient completed a standing static and dynamic balance retraining program, as per flow sheet. He tolerated the additon of tandem stance activity, well. Patient required CGA-Mod A at times, for safety due to balance impairment. STAIRS: Up/down 9x4 and 6x6 using 1 rail and a step-to pattern with supervision ASSESSMENT: Patient tolerated session with c/o dizziness. He was able to tolerate a progression in gait distance without assistive device support. He would benefit from continued gait and balance retraining for improved mobility, as well as continued strengthening for improved activity tolerance. PLAN: Continue with PT's POC TREATMENT CODE/TIME: Session 1: 30 minutes; [id number], [id number]
[2019-01-28] MEDS: Potassium Chloride 10 MEQ TABCR PO (10:46)
[2019-01-28] MEDS: Magnesium Oxide 400 MG TAB PO (10:47)
--- NOTE | 2019-01-28 11:21 | PT.INDS ---
Date of service: 01/28/19 Time of Service: 11:00 PT Notes Date: 01/28/19 Referring Doctor: Dr. Canales PT Orders: PT CONSULT: eval and treat Precautions: fall, standard Treatment Dates: 01/24/19 - 01/28/19 Patient Profile/Admitting Diagnosis: Patient admitted due to alcohol withdrawal seizure. He's participated in PT intervention to address mobility, with a total of 7 visits over the past 5 days. PMHX: Essential hypertension, Alcohol abuse (Chronic),Alcoholic gastritis,Alcoholic liver disease, Anemia, Cannabis abuse, Cholelithiasis, History of atrial fibrillation with rapid ventricular response, Thrombocytopenia, TBI s/p craniotomy Social History/Home Situation: Patient is currently experiencing homelessness, and residing at the [facility]. Equipment Owned/DME: None Subjective: Patient reports that he is feeling well today. He states that he has been walking around the ICU on his own, and although he feels dizzy, he is doing better overall. He reports constant dizziness, regardless of motion. Patient has been working with Care Management on discharge planning. He states that he plans to go to rehab upon discharge. Objective: General Observation: Resting in bed with no lines. Mental Status: Alert and oriented x 3. Pleasant and agreeable to treatment. Pain: Denies ROM: Right Upper Extremity: Shoulder flexion allows 170 degrees. Elbow and wrist motions are grossly WFL Left Upper Extremity: Shoulder flexion allows 170 degrees. Elbow and wrist motions are grossly WFL Right Lower Extremity: WFL Left Lower Extremity: WFL Strength: Right Upper Extremity: Shoulder flexion 4+/5. Biceps 5/5. Dependency Case Manager strong and equal Left Upper Extremity: Shoulder flexion 4+/5. Biceps 5/5. Dependency Case Manager strong and equal Right Lower Extremity: Hip flexion 5/5. Quads 5/5. Ankle dorsiflexion 5/5. Left Lower Extremity: Hip flexion 5/5. Quads 5/5. Ankle dorsiflexion 5/5. Neuro: Visual tracking is normal, with nystagmus on end-ranges of lateral gaze to both sides. He demonstrates diminished coordination with rapid alternating movements of both the upper and lower extremities. Fine motor is normal with thumb to digit tapping. Kinesthetic awareness is normal for the upper extremities. There is no tremor noted. Bed Mobility/Transfers: Supine to sit: Independent Sit to supine: Independent Sit to stand: Independent Stand to sit: Independent Gait: Patient is able to ambulate 150' with single crutch during today's session. He initially ambulates with SBA only, although with CG due to reports of dizziness toward the end of his walk. He was able to ambulate 300' with SBA earlier this am, without assistive device. Stairs: Patient managed therapeutic stairs (4x9, 6x6) with single rail and supervision only Balance: Static Sitting: normal Dynamic Sitting: good Static Standing: good Dynamic Standing: fair Special Tests: Mobility Limitations Standardized Measure [facility] AM-PAC 6 clicks Basic Mobility Inpatient Short Form: Raw Score: 24 CMS Score: 0% Treatment: Today's session consisted of re-evaluation, followed by therapeutic activities as noted above. Held on balance retraining program due to patient's level of dizziness. Assessment: Patient is a 58 year old male referred to physical therapy services with the diagnosis of PT evaluation and treatment for patient admitted due to alcoholic ketoacidosis. Patient has participated in 7 PT sessions over the past 5 days, with improvements in safety and mobility. He is experiencing significant dizziness, which is not mechanically reproduced. At this point, all rehab goals have been met, and patient is appropriate for discharge from PT services. Goals: Goals X1 week 1. Supine-Sit independent (MET) 2. Sit-Supine independent(MET) 3. Sit-Stand independent(MET) 4. Stand-Sit independent(MET) 5. Bed-Chair independent(MET) 6. Chair-Bed independent(MET) 7. Gait independent X 100'(MET) Plan of Care/Treatment Plan: Discharge from PT services in acute care setting. DISCHARGE RECOMMENDATIONS: No equipment needs anticipated. TREATMENT CODE/TIME: 15 minutes ([id number])
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
[2019-01-28] MEDS: Enoxaparin 40 MG/0.4 ML SYR SC (21:29)
[2019-01-29 06:28] VITALS: BP 130/84; PULSE 64
[2019-01-29 07:10] LABS: Abs Immature Grans 0.02 k/cumm (0.0-0.09); Absolute Basophil Count 0.03 k/cumm (0.0-0.2); Absolute Eosinophil Count 0.11 k/cumm (0.0-0.7); Absolute Lymphocyte Count 2.64 k/cumm (1.2-3.4); Absolute Monocyte Count 0.83 k/cumm (0.11-0.7); Absolute Neutrophil Count 3.06 k/cumm (1.2-6.7); Basophils % 0.4; Eosinophils % 1.6; HCT 46.7 % (40.0-50.0); HGB 16.6 g/dL (13.5-17.5); Immature Grans % 0.3; Lymphocytes % 39.5; Mean Corp. HGB Concentration 35.5 g/dL (32.0-36.0); Mean Corpuscular Hemoglobin 31.4 pg (27.0-33.0); Mean Corpuscular Volume 88.4 fL (80-95); Monocytes % 12.4; Neutrophils % 45.8; Platelet Count 111 x1000/uL (130-400); RBC 5.28 m/cumm (4.50-6.00); RBC Distribution Width 13.4 % (11.8-14.1); White Blood Cell Count 6.69 k/cumm (4.4-10.8)
[2019-01-29 07:34] LABS: ALT 68 U/L (12-78); AST 50 U/L (15-37); Albumin 3.9 g/dL (3.4-5.0); Alkaline Phosphatase 75 U/L (46-116); Anion Gap 11.4 mmol/L (3-11); BUN 13 mg/dL (7-18); Bilirubin, Total 0.9 mg/dL (0.2-1.0); CO2 25.6 mmol/L (21.0-32.0); CREATININE 0.72 mg/dL (0.70-1.30); Calcium 9.9 mg/dL (8.5-10.1); Chloride 100 mmol/L (98-107); Glucose 99 mg/dL (70-100); Magnesium 1.8 mg/dL (1.8-2.4); Potassium 3.7 mmol/L (3.5-5.1); Sodium 137 mmol/L (136-145)
[2019-01-29 08:45] VITALS: BP 122/92; PULSE 77; RESP 20; TEMP 36.8; O2SAT 98
[2019-01-29 08:46] VITALS: O2SAT 96
[2019-01-29] MEDS: Sucralfate 1 GM TAB PO (08:50)
[2019-01-29] MEDS: Thiamine 100 MG TAB PO (08:50)
[2019-01-29] MEDS: Folic Acid 1 MG TAB PO (08:50)
[2019-01-29] MEDS: Multivitamin TAB 1 TAB PO (08:50)
--- NOTE | 2019-01-29 09:17 | PDOC.CMDIS ---
- If Service Date Differs Date of service: 01/29/19 Time of Service: 09:17 LACE Index Scoring Tool - Questions: Length of Stay (in days): 4 - 6 Acuity (Admit via E.D.?): Yes Comorbidities: Liver or Renal Disease E.D. Visits: 4 - Answers: Total Score: 16 Risk of Readmission: High Risk Care Management Discharge Reason for Hospitalization: Alcohol withdrawal seizure Discharge Plan: Jemal is being discharged and will stay with a friend for the time being. He is awaiting a bed at [facility] where he will be treated for his long standing alcohol addiction. Patient/Family Education Needs: Discharge plan, limitations, plan of care and Ask Me Three. Services Needed at Discharge: Psychiatric Facility ([facility] for Treatment of alcohol addiction), Transportation - MH Services (Omit if N/A) Current MH Services: None
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
--- NOTE | 2019-01-29 10:11 | CMDISCH_ITS ---
- If Service Date Differs Date of service: 01/29/19 Time of Service: 09:17 LACE Index Scoring Tool - Questions: Length of Stay (in days): 4 - 6 Acuity (Admit via E.D.?): Yes Comorbidities: Liver or Renal Disease E.D. Visits: 4 - Answers: Total Score: 16 Risk of Readmission: High Risk Care Management Discharge Reason for Hospitalization: Alcohol withdrawal seizure Discharge Plan: Jemal is being discharged and will stay with a friend for the time being. He is awaiting a bed at [facility] where he will be treated for his long standing alcohol addiction. Patient/Family Education Needs: Discharge plan, limitations, plan of care and Ask Me Three. Services Needed at Discharge: Psychiatric Facility ([facility] for Treatment of alcohol addiction), Transportation - MH Services (Omit if N/A) Current MH Services: None
[2019-01-29] MEDS: POTASSIUM CHLORIDE 20 MEQ, POTASSIUM CHLORIDE 10 MEQ 30 MEQ PO (10:37)
[2019-01-29] MEDS: Magnesium Oxide 400 MG TAB PO (10:38)
== END 2019-01-29 12:00 | disposition home or self-care (01) | DRG 101 ==
LOC: ER 18:58 → ICU 01-24 08:01
PROVIDERS: Internal Medicine; Physician Assistant; Admitting Provider Internal Medicine; Emergency Provider Student in an Organized Health Care Education/Training Program; PCP Internal Medicine; Visit Provider Internal Medicine
DX: R56.9 Unspecified convulsions (principal); F10.239 Alcohol dependence with withdrawal, unspecified; I47.2 Ventricular tachycardia; E87.2 Acidosis; K29.20 Alcoholic gastritis without bleeding; K70.30 Alcoholic cirrhosis of liver without ascites; Y90.2 Blood alcohol level of 40-59 mg/100 ml; I48.0 Paroxysmal atrial fibrillation; I10 Essential (primary) hypertension; R27.8 Other lack of coordination; R26.2 Difficulty in walking, not elsewhere classified; D69.6 Thrombocytopenia, unspecified; D53.9 Nutritional anemia, unspecified
CPT/HCPCS: 36415; 36416; 80048; 80053; 80307; 82550; 82805; 82962; 93005; 96361; 96365; 96366; 97110; 97112; 97163; 97530; 99223; 99232; 99233; 99238; 99285; J1650; 70450; 71045; 80320; 80329; 81003; 81015; 83605; 83735; 84100; 84443; 84484; 85025; 85610; 93010; J2060

== ENCOUNTER 2019-03-30 17:56 | Inpatient (IN) | payer MEDICAID, SELFPAY ==
[2019-03-30] VITALS (57 sets, daily range): BP systolic 31–148; BP diastolic 18–124; PULSE 60–179; RESP 10–30; TEMP 36.5–37.5; O2SAT 91–97
[2019-03-30] MEDS: Normal Saline 1,000 ML 150 ML IV (18:25)
[2019-03-30] MEDS: LORazepam 2 MG/ML VIAL ×2 (18:35→18:45)
[2019-03-30] MEDS: levETIRAcetam 500 MG/5 ML VIAL (18:44)
[2019-03-30 18:50] LABS: Abs Immature Grans 0.07 k/cumm (0.0-0.09); Absolute Basophil Count 0.07 k/cumm (0.0-0.2); Absolute Eosinophil Count 0.01 k/cumm (0.0-0.7); Basophils % 0.6; Eosinophils % 0.1; HCT 46.6 % (40.0-50.0); HGB 15.8 g/dL (13.5-17.5); Immature Grans % 0.6; Lymphocytes % 38.4; Mean Corp. HGB Concentration 33.9 g/dL (32.0-36.0); Mean Corpuscular Hemoglobin 32.4 pg (27.0-33.0); Mean Corpuscular Volume 95.5 fL (80-95); Mean Platelet Volume 10.2 fL (8.0-11.0); Monocytes % 10.1; Neutrophils % 50.2; Platelet Count 156 x1000/uL (130-400); RBC 4.88 m/cumm (4.50-6.00); RBC Distribution Width 13.1 % (11.8-14.1); White Blood Cell Count 12.23 k/cumm (4.4-10.8)
[2019-03-30 18:57] LABS: Absolute Monocyte Count 1.24 k/cumm (0.11-0.7); Absolute Neutrophil Count 6.14 k/cumm (1.2-6.7)
[2019-03-30 19:02] LABS: ALT 33 U/L (12-78); AST 47 U/L (15-37); Albumin 4.4 g/dL (3.4-5.0); Alkaline Phosphatase 76 U/L (46-116); Anion Gap 33.8 mmol/L (3-11); BUN 11 mg/dL (7-18); Bilirubin, Total 0.9 mg/dL (0.2-1.0); CO2 11.2 mmol/L (21.0-32.0); CREATININE 1.03 mg/dL (0.70-1.30); Calcium 9.2 mg/dL (8.5-10.1); Chloride 104 mmol/L (98-107); ETHANOL BLOOD 46.1 mg/dL (<3); Glucose 130 mg/dL (70-100); Magnesium 2.1 mg/dL (1.8-2.4); Potassium 3.1 mmol/L (3.5-5.1); Sodium 149 mmol/L (136-145); Total Protein 8.4 g/dL (6.4-8.2)
[2019-03-30 19:03] LABS: Troponin I < 0.02 ng/mL (0.00-0.06)
[2019-03-30] MEDS: THIAMINE 100 MG in Normal Saline 100 ML 200 MG IVPB (19:03)
--- NOTE | 2019-03-30 19:30 | DI.CT_ITS ---
SYMPTOM/DIAGNOSIS: TRAUMA TO FACE, FELL FROM BENCH TO GROUND, H/O TBI, SEIZURE DISORDER NONCONTRAST HEAD CT: Comparison is made with 01/23/19. The exam is mildly limited by artifact related to dental work. A large area of encephalomalacia is again noted in the left frontal region. No intracranial hemorrhage or skull fracture is seen. The ventricles are unchanged in size. There are again noted to be left frontal and temporal craniotomy defects. IMPRESSION: Stable area of left frontal encephalomalacia. No acute abnormality. CERVICAL SPINE CT: There is no evidence of fracture or subluxation. There is no prevertebral soft tissue swelling. There are degenerative disc changes at C 5-6 and C 6-7 as well as facet degenerative changes throughout. IMPRESSION: Degenerative changes. No acute abnormality. FACIAL CT: No facial fractures are identified. There is mucosal thickening of both maxillary sinuses. The frontal sinuses are diminutive. The mastoid air cells appear clear. IMPRESSION: Mild chronic sinus disease. No acute abnormality.
--- NOTE | 2019-03-30 19:45 | W.ED.GENAD ---
Discharge Plan Disposition Patient Disposition: [facility] INPATIENT Condition: Critical Discharge Details Chief Complaint: Trauma Clinical Impression: Alcohol withdrawal, Alcohol withdrawal seizure, Acute hypokalemia, High anion gap metabolic acidosis Primary Care Provider: Otilio Fox ED Provider: Zhao Hua Home Meds and New Rx's Prescriptions: No Action acetaminophen [Mapap Extra Strength] 500 MG tablet 1,000 mg PO Q6H 5 Days Qty: 60 RF: 0 Ibuprofen [Motrin Ib] 200 MG tablet 600 mg PO Q6H 5 Days Qty: 60 RF: 0 thiamine mononitrate (vit B1) [Vitamin B-1 (mononitrate)] 100 MG tablet 100 mg PO DAILY Qty: 30 RF: 0 Medical Decision Making Patient was seen immediately on arrival: 58-year-old male with history of atrial fibrillation, not anticoagulated, alcoholism, prior alcohol withdrawal seizure, here after having witnessed generalized tonic-clonic seizure with fall from seated position to the ground with facial and head trauma. Patient is still somewhat altered although more oriented per EMS. Concern for acute life-threatening intracranial traumatic hemorrhage. Plan to obtain CT of the head. Consider facial fracture. Will obtain facial CT. Considered cervical fracture. Will obtain cervical CT. C-collar placed by nursing. We will give thiamine 100 mg IV and IV fluid. --While nursing was attempting to obtain IV access, patient had another witnessed generalized tonic-clonic seizure that lasted approximately 3 to 4 minutes. Airway was suctioned during seizure episode. He did not vomit. He was given Ativan 1 mg IV and Ativan 1 mg IM. Patient was loaded with Keppra 1 g. 19:55 -- Labs reviewed and hypokalemia noted. I will give potassium 20 mill equivalent IV. Ethyl alcohol noted to be 46. Anion gap elevated and leukocytosis noted - suspect secondary to seizure x 2. ECG was reviewed and interpreted by me: Atrial fibrillation with RVR 163 bpm, normal axis, no STEMI, nondiagnostic. Suspect tachycardia is related to seizure and withdrawal. Patient receiving IV fluid bolus. Will give Valium 5 mg IM. I called and spoke with Dr. Mcnulty about the patient. He will accept the patient and admission pending the results of CT imaging. 20:00 --patient heart rate improved with IV fluid bolus and Valium IM. 20:20 -- Patient now vomiting. Airway protected. CT of the head interpreted by radiology: No evidence of acute intracranial process. CT of the facial bones interpreted by radiology: No evidence of acute bony injury. CT of the cervical spine interpreted by radiology: No evidence of acute bony injury. cspine cleared and collar removed by me. 20:39 -- I spoke with Dr. Mcnulty-I discussed ED presentation and course including diagnostic. Dr. Mcnulty will admit the patient to the ICU. Care transition to Dr. Mnculty at this time. HPI General Mode of arrival: ambulatory. Date/Time Provider Initiated Documentation: 03/30/19 18:50. Limitations to Documentation: altered mental status. Information obtained by: patient and EMS. HPI Narrative: 58-year-old male with history of alcohol dependence, chronic alcoholism, prior episodes of withdrawal seizures, alcoholic gastritis, alcoholic cirrhosis, atrial fibrillation not on anticoagulation, chronic anemia and chronic thrombocytopenia, here with EMS after episode of seizure. Patient was apparently sitting on a bench and had a generalized tonic-clonic seizure, fell to the ground impacting his face and head. EMS notes that he has been altered but more oriented in route to a [facility]. Patient did have bleeding from his nose which has stopped. There is concern that he may have bit his tongue and he did have incontinence of urine. History and review of systems limited secondary to altered mental status. Patient denies pain at this time. Related Data Home Medications Medication Instructions Recorded Confirmed thiamine mononitrate (vit B1) 100 mg PO DAILY #30 tab 05/29/18 01/23/19 [Vitamin B-1 (mononitrate)] Ibuprofen [Motrin Ib] 600 mg PO Q6H 5 Days #60 tab 06/14/18 01/23/19 acetaminophen [Mapap Extra 1,000 mg PO Q6H 5 Days #60 tab 06/14/18 01/23/19 Strength] Previous Rx's Medication Instructions Recorded thiamine mononitrate (vit B1) 100 mg PO DAILY #30 tab 05/29/18 [Vitamin B-1 (mononitrate)] Ibuprofen [Motrin Ib] 600 mg PO Q6H 5 Days #60 tab 06/14/18 acetaminophen [Mapap Extra 1,000 mg PO Q6H 5 Days #60 tab 06/14/18 Strength] Allergies Allergy/AdvReac Type Severity Reaction Status Date / Time acamprosate calcium AdvReac Intermediate widespread Verified 01/23/19 13:57 [From Campral] pain General Stated Complaint: Trauma GABRIELE: 3 Review of Systems Review of Systems Unobtainable due to mental status [facility] Medical History Alcohol abuse (Chronic) Alcoholic gastritis (Chronic) Alcoholic liver disease (Chronic) Anemia (Chronic) CTS (carpal tunnel syndrome) (Chronic) Cannabis abuse (Chronic) Cholelithiasis (Chronic) Continuous chronic alcoholism (Chronic) Essential hypertension (Chronic) History of atrial fibrillation (Chronic) Thrombocytopenia (Chronic) Alcohol withdrawal (Resolved) Atrial fibrillation with rapid ventricular response (Resolved) DTs (delirium tremens) (Resolved) Dehydration (Resolved) Diarrhea (Resolved) Diverticulitis (Resolved ~09/2017) Hematuria (Resolved) History of closed head injury (Resolved) Hypokalemia (Resolved) Hypomagnesemia (Resolved) Hypophosphatemia (Resolved) Surgical History H/O craniotomy (Resolved ~1983) S/P carpal tunnel release (Resolved ~03/2017) Social History Smoking/Tobacco Use Status: Never Alcohol Intake: current Alcohol Intake frequency: 3 or more drinks per day Alcohol type: hard liquor Drug use: Daily Substance use type: marijuana Housing: other Details: currently living in homeless [facility]ci in [place] Do you feel safe at home: Yes Do you feel safe in your relationship?: Yes Exam Const General: cooperative and well developed Orientation: alert [facility] General nose exam: septum normal, external nose abnormal (swollen) and other (dried blood in nose) Mouth: moist mucous membranes and other (superficial, bit tongue, no active bleeding) Eyes Conjunctivae: normal conjunctivae Sclera: normal sclerae Neck Neck: trachea midline and supple Resp Auscultation: clear to auscultation bilaterally, no rales, no rhonchi and no wheezes Cardio Jugular venous pressure: no JVD Rate: tachycardic Rhythm: regular rhythm GI Palpation: soft, not firm, no guarding, no masses, not rigid and nontender Skin General skin exam: no rashes or lesions noted Neuro General: alert, awake and tone normal Extrem General: no edema Psych Appearance: grossly normal Course Vital Signs Temperature 36.5 C 03/30/19 18:03 Pulse 164 H 03/30/19 18:03 Respiratory Rate 18 03/30/19 18:03 Blood Pressure 122/75 03/30/19 18:03 Temperature 36.5 C 03/30/19 18:03 Temperature Source Temporal Artery Scan 03/30/19 18:03 Pulse 164 H 03/30/19 18:03 Respiratory Rate 18 03/30/19 18:03 Respiratory Effort 03/30/19 19:07 Respiratory Depth Normal 03/30/19 19:07 Respiratory Pattern Normal 03/30/19 19:07 Blood Pressure 122/75 03/30/19 18:03 Oxygen Delivery Method Room Air 03/30/19 18:03 Oxygen Flow Rate 0 03/30/19 18:03 Lab/Test Results Lab/Test Results: Laboratory Tests Range/Units 03/30/19 03/30/19 18:32 18:32 WBC (4.4-10.8) k/cumm 12.23 H RBC (4.50-6.00) m/cumm 4.88 Hgb (13.5-17.5) g/dL 15.8 Hct (40.0-50.0) % 46.6 MCV (80-95) fL 95.5 H MCH (27.0-33.0) pg 32.4 MCHC (32.0-36.0) g/dL 33.9 RDW (11.8-14.1) % 13.1 Plt Count (130-400) x1000/uL 156 MPV (8.0-11.0) fL 10.2 Immature Gran % 0.6 Neutrophils % 50.2 Lymphocytes % 38.4 Monocytes % 10.1 Eosinophils % 0.1 Basophils % 0.6 Absolute Neutrophils (1.2-6.7) k/cumm 6.14 Absolute Lymphocytes (1.2-3.4) k/cumm 4.70 H Absolute Monocytes (0.11-0.7) k/cumm 1.24 H Absolute Eosinophils (0.0-0.7) k/cumm 0.01 Absolute Basophils (0.0-0.2) k/cumm 0.07 Sodium (136-145) mmol/L 149 H Potassium (3.5-5.1) mmol/L 3.1 L Chloride (98-107) mmol/L 104 Carbon Dioxide (21.0-32.0) mmol/L 11.2 L Anion Gap (3-11) mmol/L 33.8 H BUN (7-18) mg/dL 11 Creatinine (0.70-1.30) mg/dL 1.03 Estimated GFR/1.73 m2 (mL/min/1.73m2) >= 60.00 Glucose (70-100) mg/dL 130 H Calcium (8.5-10.1) mg/dL 9.2 Magnesium (1.8-2.4) mg/dL 2.1 Total Bilirubin (0.2-1.0) mg/dL 0.9 AST (15-37) U/L 47 H ALT (12-78) U/L 33 Alkaline Phosphatase (46-116) U/L 76 Troponin I (0.00-0.06) ng/mL < 0.02 Total Protein (6.4-8.2) g/dL 8.4 H Albumin (3.4-5.0) g/dL 4.4 Ethyl Alcohol (<3) mg/dL 46.1 Critical Care Time Critical Care Time: Yes Total Critical Care Time: 65 Attestation: I spent greater than 65 minutes addressing this patient's immediate life threats
--- NOTE | 2019-03-30 19:48 | ED.GENADUL_ITS ---
Discharge Plan Disposition Patient Disposition: [facility] INPATIENT Condition: Critical Discharge Details Chief Complaint: Trauma Clinical Impression: Alcohol withdrawal, Alcohol withdrawal seizure, Acute hypokalemia, High anion gap metabolic acidosis Primary Care Provider: Otilio Fox ED Provider: Zhao Hua Home Meds and New Rx's Prescriptions: No Action acetaminophen [Mapap Extra Strength] 500 MG tablet 1,000 mg PO Q6H 5 Days Qty: 60 RF: 0 Ibuprofen [Motrin Ib] 200 MG tablet 600 mg PO Q6H 5 Days Qty: 60 RF: 0 thiamine mononitrate (vit B1) [Vitamin B-1 (mononitrate)] 100 MG tablet 100 mg PO DAILY Qty: 30 RF: 0 Medical Decision Making Patient was seen immediately on arrival: 58-year-old male with history of atrial fibrillation, not anticoagulated, alcoholism, prior alcohol withdrawal seizure, here after having witnessed generalized tonic-clonic seizure with fall from seated position to the ground with facial and head trauma. Patient is still somewhat altered although more oriented per EMS. Concern for acute life-threatening intracranial traumatic hemorrhage. Plan to obtain CT of the head. Consider facial fracture. Will obtain facial CT. Considered cervical fracture. Will obtain cervical CT. C-collar placed by nursing. We will give thiamine 100 mg IV and IV fluid. --While nursing was attempting to obtain IV access, patient had another witnessed generalized tonic-clonic seizure that lasted approximately 3 to 4 minutes. Airway was suctioned during seizure episode. He did not vomit. He was given Ativan 1 mg IV and Ativan 1 mg IM. Patient was loaded with Keppra 1 g. 19:55 -- Labs reviewed and hypokalemia noted. I will give potassium 20 mill equivalent IV. Ethyl alcohol noted to be 46. Anion gap elevated and leukocytosis noted - suspect secondary to seizure x 2. ECG was reviewed and interpreted by me: Atrial fibrillation with RVR 163 bpm, normal axis, no STEMI, nondiagnostic. Suspect tachycardia is related to seizure and withdrawal. Patient receiving IV fluid bolus. Will give Valium 5 mg IM. I called and spoke with Dr. Mcnulty about the patient. He will accept the patient and admission pending the results of CT imaging. 20:00 --patient heart rate improved with IV fluid bolus and Valium IM. 20:20 -- Patient now vomiting. Airway protected. CT of the head interpreted by radiology: No evidence of acute intracranial process. CT of the facial bones interpreted by radiology: No evidence of acute bony injury. CT of the cervical spine interpreted by radiology: No evidence of acute bony injury. cspine cleared and collar removed by me. 20:39 -- I spoke with Dr. Mcnulty-I discussed ED presentation and course including diagnostic. Dr. Mcnulty will admit the patient to the ICU. Care transition to Dr. Mcnulty at this time. HPI General Mode of arrival: ambulatory . Date/Time Provider Initiated Documentation: 03/30/19 18:50 . Limitations to Documentation: altered mental status . Information obtained by: patient and EMS . HPI Narrative: 58-year-old male with history of alcohol dependence, chronic alcoholism, prior episodes of withdrawal seizures, alcoholic gastritis, alcoholic cirrhosis, atrial fibrillation not on anticoagulation, chronic anemia and chronic thrombocytopenia, here with EMS after episode of seizure. Patient was apparently sitting on a bench and had a generalized tonic-clonic seizure, fell to the ground impacting his face and head. EMS notes that he has been altered but more oriented in route to a [facility]. Patient did have bleeding from his nose which has stopped. There is concern that he may have bit his tongue and he did have incontinence of urine. History and review of systems limited secondary to altered mental status. Patient denies pain at this time. Related Data Home Medications Medication Instructions Recorded Confirmed thiamine mononitrate (vit B1) 100 mg PO DAILY #30 tab 05/29/18 01/23/19 [Vitamin B-1 (mononitrate)] Ibuprofen [Motrin Ib] 600 mg PO Q6H 5 Days #60 tab 06/14/18 01/23/19 acetaminophen [Mapap Extra 1,000 mg PO Q6H 5 Days #60 tab 06/14/18 01/23/19 Strength] Previous Rx's Medication Instructions Recorded thiamine mononitrate (vit B1) 100 mg PO DAILY #30 tab 05/29/18 [Vitamin B-1 (mononitrate)] Ibuprofen [Motrin Ib] 600 mg PO Q6H 5 Days #60 tab 06/14/18 acetaminophen [Mapap Extra 1,000 mg PO Q6H 5 Days #60 tab 06/14/18 Strength] Allergies Allergy/AdvReac Type Severity Reaction Status Date / Time acamprosate calcium AdvReac Intermediate widespread Verified 01/23/19 13:57 [From Campral] pain General Stated Complaint: Trauma GABRIELE: 3 Review of Systems Review of Systems Unobtainable due to mental status [facility] Medical History Alcohol abuse (Chronic) Alcoholic gastritis (Chronic) Alcoholic liver disease (Chronic) Anemia (Chronic) CTS (carpal tunnel syndrome) (Chronic) Cannabis abuse (Chronic) Cholelithiasis (Chronic) Continuous chronic alcoholism (Chronic) Essential hypertension (Chronic) History of atrial fibrillation (Chronic) Thrombocytopenia (Chronic) Alcohol withdrawal (Resolved) Atrial fibrillation with rapid ventricular response (Resolved) DTs (delirium tremens) (Resolved) Dehydration (Resolved) Diarrhea (Resolved) Diverticulitis (Resolved ~09/2017) Hematuria (Resolved) History of closed head injury (Resolved) Hypokalemia (Resolved) Hypomagnesemia (Resolved) Hypophosphatemia (Resolved) Surgical History H/O craniotomy (Resolved ~1983) S/P carpal tunnel release (Resolved ~03/2017) Social History Smoking/Tobacco Use Status: Never Alcohol Intake: current Alcohol Intake frequency: 3 or more drinks per day [place] type: hard liquor Drug use: Daily Substance use type: marijuana Housing: other Details: currently living in homeless correction in [place], [place] Do you feel safe at home: Yes Do you feel safe in your relationship?: Yes Exam Const General: cooperative and well developed Orientation: alert [facility] General nose exam: septum normal, external nose abnormal (swollen) and other (dried blood in nose) Mouth: moist mucous membranes and other (superficial, bit tongue, no active bleeding) Eyes Conjunctivae: normal conjunctivae Sclera: normal sclerae Neck Neck: trachea midline and supple Resp Auscultation: clear to auscultation bilaterally, no rales, no rhonchi and no wheezes Cardio Jugular venous pressure: no JVD Rate: tachycardic Rhythm: regular rhythm GI Palpation: soft, not firm, no guarding, no masses, not rigid and nontender Skin General skin exam: no rashes or lesions noted Neuro General: alert, awake and tone normal Extrem General: no edema Psych Appearance: grossly normal Course Vital Signs Temperature 36.5 C 03/30/19 18:03 Pulse 164 H 03/30/19 18:03 Respiratory Rate 18 03/30/19 18:03 Blood Pressure 122/75 03/30/19 18:03 Temperature 36.5 C 03/30/19 18:03 Temperature Source Temporal Artery Scan 03/30/19 18:03 Pulse 164 H 03/30/19 18:03 Respiratory Rate 18 03/30/19 18:03 Respiratory Effort 03/30/19 19:07 Respiratory Depth Normal 03/30/19 19:07 Respiratory Pattern Normal 03/30/19 19:07 Blood Pressure 122/75 03/30/19 18:03 Oxygen Delivery Method Room Air 03/30/19 18:03 Oxygen Flow Rate 0 03/30/19 18:03 Lab/Test Results Lab/Test Results: Laboratory Tests Range/Units 03/30/19 03/30/19 18:32 18:32 WBC (4.4-10.8) k/cumm 12.23 H RBC (4.50-6.00) m/cumm 4.88 Hgb (13.5-17.5) g/dL 15.8 Hct (40.0-50.0) % 46.6 MCV (80-95) fL 95.5 H MCH (27.0-33.0) pg 32.4 MCHC (32.0-36.0) g/dL 33.9 RDW (11.8-14.1) % 13.1 Plt Count (130-400) x1000/uL 156 MPV (8.0-11.0) fL 10.2 Immature Gran % 0.6 Neutrophils % 50.2 Lymphocytes % 38.4 Monocytes % 10.1 Eosinophils % 0.1 Basophils % 0.6 Absolute Neutrophils (1.2-6.7) k/cumm 6.14 Absolute Lymphocytes (1.2-3.4) k/cumm 4.70 H Absolute Monocytes (0.11-0.7) k/cumm 1.24 H Absolute Eosinophils (0.0-0.7) k/cumm 0.01 Absolute Basophils (0.0-0.2) k/cumm 0.07 Sodium (136-145) mmol/L 149 H Potassium (3.5-5.1) mmol/L 3.1 L Chloride (98-107) mmol/L 104 Carbon Dioxide (21.0-32.0) mmol/L 11.2 L Anion Gap (3-11) mmol/L 33.8 H BUN (7-18) mg/dL 11 Creatinine (0.70-1.30) mg/dL 1.03 Estimated GFR/1.73 m2 (mL/min/1.73m2) >= 60.00 Glucose (70-100) mg/dL 130 H Calcium (8.5-10.1) mg/dL 9.2 Magnesium (1.8-2.4) mg/dL 2.1 Total Bilirubin (0.2-1.0) mg/dL 0.9 AST (15-37) U/L 47 H ALT (12-78) U/L 33 Alkaline Phosphatase (46-116) U/L 76 Troponin I (0.00-0.06) ng/mL < 0.02 Total Protein (6.4-8.2) g/dL 8.4 H Albumin (3.4-5.0) g/dL 4.4 Ethyl Alcohol (<3) mg/dL 46.1 Critical Care Time Critical Care Time: Yes Total Critical Care Time: 65 Attestation: I spent greater than 65 minutes addressing this patient's immediate life threats
[2019-03-30] MEDS: POTASSIUM CHLORIDE 20 MEQ/100 ML BAG 50 MEQ IVPB (19:49)
[2019-03-30] MEDS: Normal Saline 1,000 ML 1000 ML IV ×2 (19:50→23:35)
[2019-03-30] MEDS: diazePAM 10 MG/2 ML SYR 5 MG IM (20:01)
--- NOTE | 2019-03-30 20:11 | DI.VRAD_ITS ---
EXAM: CT Head Without Contrast EXAM DATE/TIME: 03/30/2019 6:46 PM CLINICAL HISTORY: 58 years old, male; Injury or trauma; Initial encounter; Blunt trauma (contusions or hematomas); With loss of consciousness; Not specified; Forehead; Injury date: 03/30/19; Injury details: Fall face first from bench with seizure; Patient HX: HX tbi, facial abrasions and vomiting TECHNIQUE: Imaging protocol: Axial computed tomography images of the head without contrast. Coronal and sagittal reformatted images were created and reviewed. Radiation optimization: All CT scans at this facility use at least one of these dose optimization techniques: automated exposure control; mA and/or kV adjustment per patient size (includes targeted exams where dose is matched to clinical indication); or iterative reconstruction. COMPARISON: CT Head^HEAD FACE CSPINE (Adult) 10/01/2018 12:11 PM FINDINGS: Prior left temporal and parietal craniotomies. Prominent encephalomalacia in the low left frontal lobe as well as the left anterior temporal lobe and the left temporoparietal junction. Mild chronic appearing white matter changes of probable small vessel disease. No evidence of hemorrhage. No mass effect. No acute intracranial abnormality. IMPRESSION: No evidence of acute intracranial process. EXAM: CT Maxillofacial Without Contrast EXAM DATE/TIME: 03/30/2019 6:46 PM CLINICAL HISTORY: 58 years old, male; Injury or trauma; Initial encounter; Blunt trauma (contusions or hematomas); With loss of consciousness; Not specified; Forehead; Injury date: 03/30/19; Injury details: Fall face first from bench with seizure; Patient HX: HX tbi, facial abrasions and vomiting TECHNIQUE: Imaging protocol: Axial computed tomography images of the face without intravenous contrast. Coronal and sagittal reformatted images were created and reviewed. Radiation optimization: All CT scans at this facility use at least one of these dose optimization techniques: automated exposure control; mA and/or kV adjustment per patient size (includes targeted exams where dose is matched to clinical indication); or iterative reconstruction. COMPARISON: CT Head^HEAD FACE CSPINE (Adult) 10/01/2018 12:11 PM FINDINGS: Facial bones intact. Chronic appearing bilateral maxillary sinus disease. Globes are intact. No significant radiopaque foreign bodies. IMPRESSION: No evidence of acute bony injury. EXAM: CT Cervical Spine Without Contrast EXAM DATE/TIME: 03/30/2019 6:46 PM CLINICAL HISTORY: 58 years old, male; Injury or trauma; Initial encounter; Blunt trauma (contusions or hematomas); With loss of consciousness; Not specified; Forehead; Injury date: 03/30/19; Injury details: Fall face first from bench with seizure; Patient HX: HX tbi, facial abrasions and vomiting TECHNIQUE: Imaging protocol: Axial computed tomography images of the cervical spine without contrast. Coronal and sagittal reformatted images were created and reviewed. Radiation optimization: All CT scans at this facility use at least one of these dose optimization techniques: automated exposure control; mA and/or kV adjustment per patient size (includes targeted exams where dose is matched to clinical indication); or iterative reconstruction. COMPARISON: CT Head^HEAD FACE CSPINE (Adult) 10/01/2018 12:11 PM FINDINGS: Degenerative disc and facet disease of the lower cervical spine. No focal subluxation. No acute fracture. Paraspinal soft tissues unremarkable. Lung apices are within normal limits. IMPRESSION: No evidence of acute bony injury. Dictated and Authenticated by: Justin Callahan MD. Ordering:SABRINA Churchill MD
--- NOTE | 2019-03-30 20:48 | W.PM.HP.N ---
Date of service: 03/30/19 Time of Service: 20:48 Assessment and Plan (1) Seizure: Start date: 03/30/19 Current visit: Yes Status: Acute This is a 58-year-old gentleman with known chronic alcoholism presenting with tonic-clonic seizure activity and injury to his face as he fell forward from a bench where he was sitting when he had a seizure. He did not drink alcohol today but he drinks vodka daily. He does have chronic sequela of diabetes with alcoholic cirrhosis the liver functions are not markedly elevated today and his exam is fairly benign. He did receive benzodiazepines and Keppra in the ED and will continue with benzodiazepines for treatment of this problem while he is on the CIWA protocol as well. IV Ativan will be used for acute seizures. He does also have lactic acidosis which is quite severe and will be treated aggressively with IV hydration. Labs will be followed closely as we IV hydrate. He did have replacement of his potassium in the ED. Patient is clinically stable at this time except scoring quite high on his CIWA score with Ativan being given per os. He was tachycardic and more confused in the ED and this has mostly resolved with fluid resuscitation (2) Alcohol withdrawal: Start date: 03/30/19 Current visit: No Status: Acute Patient is scoring quite high on the CIWA and will be given oral Ativan which should help with avoidance of recurrent seizures. Qualifiers: Complication of substance-induced condition: with perceptual disturbance Qualified Code(s): F10.232 - Alcohol dependence with withdrawal with perceptual disturbance (3) Hypokalemia: Start date: 03/30/19 Current visit: Yes Status: Acute Improved status post IV potassium replacement with severe acidosis at the time of the first measurement. Continue to monitor as we IV hydrate with labs to be repeated in the morning. Presently he is responding to fluid resuscitation with less confusion and vital signs more stable with tachycardia resolving. History of Present Illness Chief Complaint: Witnessed seizure with trauma to face Narrative: This is a 58-year-old gentleman with chronic alcoholism living on his duties and usually drinking vodka daily. He did not drink day of admission and was sitting on a bench when he began to have neurolyse tonic-clonic seizures and fell forward striking his face with trauma to his face and nose. He did have a nosebleed and this was stopped during his evaluation in the ED. Imaging of his head face and neck did not reveal any acute fractures. He did bite his tongue and was incontinent of urine during his seizure activity. He did have recurrent seizures in the emergency room and was with Keppra IV along with Valium IM and Ativan IM as well as IV. At the time I saw the patient he was yawning repeatedly but conversing though he was not oriented to time. He was oriented to place and person. He was unsure of what day it was. In the ED he did have copious amount of vomiting which had resolved but we will treat him for nausea. He will be placed on CIWA protocol and treated with aggressive IV hydration for what appears to be alcohol induced lactic acidosis with hypernatremia. Keppra will not be continued since alcohol withdrawal seizure usually treated with antibiotics. Benzodiazepines will be adequate. Review of Systems Review of Systems 13 point review of systems otherwise unrevealing or stable for the patient with his chronic alcoholism, and chronic peripheral edema and abdominal bloating at times. He has had previous alcohol withdrawal seizures. He is not on chronic medications but does see a local physician in [place]. The patient is the best historian. He does smoke but does not think that he will have problems with nicotine withdrawal during his hospital stay. FOR[facility]LY [facility], [facility] Medical History Alcohol abuse (Chronic) Alcoholic gastritis (Chronic) Alcoholic liver disease (Chronic) Anemia (Chronic) CTS (carpal tunnel syndrome) (Chronic) Cannabis abuse (Chronic) Cholelithiasis (Chronic) Continuous chronic alcoholism (Chronic) Essential hypertension (Chronic) History of atrial fibrillation (Chronic) Thrombocytopenia (Chronic) Alcohol withdrawal (Resolved) Atrial fibrillation with rapid ventricular response (Resolved) DTs (delirium tremens) (Resolved) Dehydration (Resolved) Diarrhea (Resolved) Diverticulitis (Resolved ~09/2017) Hematuria (Resolved) History of closed head injury (Resolved) Hypokalemia (Resolved) Hypomagnesemia (Resolved) Hypophosphatemia (Resolved) Surgical History H/O craniotomy (Resolved ~1983) S/P carpal tunnel release (Resolved ~03/2017) Social History Smoking/Tobacco Use Status: Never Alcohol Intake: current Alcohol Intake frequency: 3 or more drinks per day Alcohol type: hard liquor Drug use: Daily Substance use type: marijuana Housing: other Details: currently living in homeless [facility] in [place], [place] Do you feel safe at home: Yes Do you feel safe in your relationship?: Yes Meds Home Medications Medication Instructions Recorded Confirmed Type thiamine mononitrate (vit B1) 100 mg PO DAILY #30 tab 05/29/18 03/30/19 Rx [Vitamin B-1 (mononitrate)] Ibuprofen [Motrin Ib] 600 mg PO Q6H 5 Days #60 tab 06/14/18 03/30/19 Rx acetaminophen [Mapap Extra 1,000 mg PO Q6H 5 Days #60 tab 06/14/18 03/30/19 Rx Strength] Allergies Allergy/AdvReac Type Severity Reaction Status Date / Time acamprosate calcium AdvReac Intermediate widespread Verified 01/23/19 13:57 [From Campral] pain Exam Narrative Exam Narrative: General: Patient appears older than stated age, disheveled and in no acute distress with frequent yawning during our conversation and some wandering of conversation. He is alert and oriented at least to person and place but not time or purpose. HEENT: Normocephalic with traumatic face revealing bruising over the bridge of his nose with some dried blood over his nostrils. Eyes reveal pupils equal react to light symmetrically with extraocular movement intact and sclera anicteric. Oropharynx with slightly dry oral mucosa and very poor dentition with broken teeth, missing teeth and multiple fillings. Neck: Supple without JVD. Lungs: Coarse rhonchi with inspiration and expiration but no focalizing rales, no increased expiratory phase or expiratory wheeze. Fair aeration with bronchovesicular breath sounds diffusely. Heart: Regular rate and rhythm with no murmurs gallops appreciated. In the emergency room he did have tachycardia. On air sampling and monitoring at the time of my exam he was in sinus rhythm with a rate of around 80. Back: Stooped posture with no CVA tenderness. Abdomen: Obese contour, soft and nontender to palpation with no palpable hepatosplenomegaly. Bowel sounds positive in all quadrants. Genitalia: Circumcised penis with Alexander catheter in place and normal testicles. Rectal: Deferred. Extremities: Gross nonpitting edema over both lower extremities about 2+ no pitting and bandages over both large toenails the patient and his large toenails were falling off. No cyanosis no clubbing. Neuro: Patient has no focalizing motor deficits, cranial nerves II through XII grossly intact. No Babinski's. No tremor. Psych: Patient has a flattened affect with some short-term memory loss as to what day it is and recall of events with patient being found postictal after seizures. Results Imaging Imaging Studies: EXAM: CT Head Without Contrast EXAM DATE/TIME: 03/30/2019 6:46 PM CLINICAL HISTORY: 58 years old, male; Injury or trauma; Initial encounter; Blunt trauma (contusions or hematomas); With loss of consciousness; Not specified; Forehead; Injury date: 03/30/19; Injury details: Fall face first from bench with seizure; Patient HX: HX tbi, facial abrasions and vomiting TECHNIQUE: Imaging protocol: Axial computed tomography images of the head without contrast. Coronal and sagittal reformatted images were created and reviewed. Radiation optimization: All CT scans at this facility use at least one of these dose optimization techniques: automated exposure control; mA and/or kV adjustment per patient size (includes targeted exams where dose is matched to clinical indication); or iterative reconstruction. COMPARISON: CT Head^HEAD FACE CSPINE (Adult) 10/01/2018 12:11 PM FINDINGS: Prior left temporal and parietal craniotomies. Prominent encephalomalacia in the low left frontal lobe as well as the left anterior temporal lobe and the left temporoparietal junction. Mild chronic appearing white matter changes of probable small vessel disease. No evidence of hemorrhage. No mass effect. No acute intracranial abnormality. IMPRESSION: No evidence of acute intracranial process. EXAM: CT Maxillofacial Without Contrast EXAM DATE/TIME: 03/30/2019 6:46 PM CLINICAL HISTORY: 58 years old, male; Injury or trauma; Initial encounter; Blunt trauma (contusions or hematomas); With loss of consciousness; Not specified; Forehead; Injury date: 03/30/19; Injury details: Fall face first from bench with seizure; Patient HX: HX tbi, facial abrasions and vomiting TECHNIQUE: Imaging protocol: Axial computed tomography images of the face without intravenous contrast. Coronal and sagittal reformatted images were created and reviewed. Radiation optimization: All CT scans at this facility use at least one of these dose optimization techniques: automated exposure control; mA and/or kV adjustment per patient size (includes targeted exams where dose is matched to clinical indication); or iterative reconstruction. COMPARISON: CT Head^HEAD FACE CSPINE (Adult) 10/01/2018 12:11 PM FINDINGS: Facial bones intact. Chronic appearing bilateral maxillary sinus disease. Globes are intact. No significant radiopaque foreign bodies. IMPRESSION: No evidence of acute bony injury. EXAM: CT Cervical Spine Without Contrast EXAM DATE/TIME: 03/30/2019 6:46 PM CLINICAL HISTORY: 58 years old, male; Injury or trauma; Initial encounter; Blunt trauma (contusions or hematomas); With loss of consciousness; Not specified; Forehead; Injury date: 03/30/19; Injury details: Fall face first from bench with seizure; Patient HX: HX tbi, facial abrasions and vomiting TECHNIQUE: Imaging protocol: Axial computed tomography images of the cervical spine without contrast. Coronal and sagittal reformatted images were created and reviewed. Radiation optimization: All CT scans at this facility use at least one of these dose optimization techniques: automated exposure control; mA and/or kV adjustment per patient size (includes targeted exams where dose is matched to clinical indication); or iterative reconstruction. COMPARISON: [facility] 10/01/2018 12:11 PM FINDINGS: Degenerative disc and facet disease of the lower cervical spine. No focal subluxation. No acute fracture. Paraspinal soft tissues unremarkable. Lung apices are within normal limits. IMPRESSION: No evidence of acute bony injury. Dictated and Authenticated by: Justin Callahan MD. Labs : 03/30/19 18:32 03/30/19 22:20 Laboratory Results - last 24 hr 03/30/19 03/30/19 18:32 18:32 WBC 12.23 H RBC 4.88 Hgb 15.8 Hct 46.6 MCV 95.5 H MCH 32.4 MCHC 33.9 RDW 13.1 Plt Count 156 MPV 10.2 Immature Gran % 0.6 Neutrophils % 50.2 Lymphocytes % 38.4 Monocytes % 10.1 Eosinophils % 0.1 Basophils % 0.6 Absolute Neutrophils 6.14 Absolute Lymphocytes 4.70 H Absolute Monocytes 1.24 H Absolute Eosinophils 0.01 Absolute Basophils 0.07 Sodium 149 H Potassium 3.1 L Chloride 104 Carbon Dioxide 11.2 L Anion Gap 33.8 H BUN 11 Creatinine 1.03 Estimated GFR/1.73 m2 >= 60.00 Glucose 130 H Calcium 9.2 Magnesium 2.1 Total Bilirubin 0.9 AST 47 H ALT 33 Alkaline Phosphatase 76 Troponin I < 0.02 Total Protein 8.4 H Albumin 4.4 Ethyl Alcohol 46.1 Last Vital Signs Temp 36.5 C 03/30/19 18:03 Pulse 164 H 03/30/19 18:03 Resp 18 03/30/19 18:03 BP 122/75 03/30/19 18:03
[2019-03-30 20:53] LABS: *AMPHETAMINES SCREEN URINE Negative (Negative); *BARBITURATES SCREEN URINE Negative (Negative); *BENZODIAZEPINES SCREEN URINE Negative (Negative); Cannabinoids THC POSITIVE (Negative); Cocaine Screen,Urine Negative (Negative); METHADONE URINE SCREEN Negative (Negative); OPIATES URINE SCREEN Negative (Negative)
[2019-03-30 20:58] LABS: Tricyclic Antidepressants Negative (Negative)
[2019-03-30] MEDS: Ondansetron 4 MG/2 ML VIAL IVP (21:29)
[2019-03-30 22:33] LABS: Lactate-non-spesis 2.9 mmol/l (0.6-1.4)
[2019-03-30 22:41] LABS: Prothrombin Time 9.9 sec (9.3-11.0)
[2019-03-30 23:04] LABS: TSH 0.95 uIU/mL (0.358-3.74)
[2019-03-30 23:08] LABS: Troponin I < 0.02 ng/mL (0.00-0.06)
[2019-03-30] MEDS: Heparin 5,000 UNITS/ML VIAL 5000 UNITS SC (23:37)
[2019-03-31] VITALS (156 sets, daily range): BP systolic 102–173; BP diastolic 27–95; PULSE 61–102; RESP 8–28; TEMP 36.6–38; O2SAT 89–99
[2019-03-31] MEDS: LORazepam 1 MG TAB PO/SL ×5 (00:24→13:49)
[2019-03-31 00:36] LABS: ALT 31 U/L (12-78); AST 47 U/L (15-37); Alkaline Phosphatase 66 U/L (46-116); Anion Gap 19.9 mmol/L (3-11); BUN 9 mg/dL (7-18); Bilirubin, Total 0.9 mg/dL (0.2-1.0); CO2 18.1 mmol/L (21.0-32.0); CREATININE 0.77 mg/dL (0.70-1.30); Calcium 8.7 mg/dL (8.5-10.1); Chloride 108 mmol/L (98-107); Glucose 118 mg/dL (70-100); Potassium 4.5 mmol/L (3.5-5.1); Sodium 146 mmol/L (136-145); Total Protein 7.6 g/dL (6.4-8.2)
[2019-03-31] MEDS: Normal Saline 1,000 ML 150 ML IV (00:44)
[2019-03-31] MEDS: Ondansetron 4 MG/2 ML VIAL IVP (00:45)
[2019-03-31 01:18] LABS: Troponin I 0.03 ng/mL (0.00-0.06)
[2019-03-31] MEDS: Heparin 5,000 UNITS/ML VIAL 5000 UNITS SC ×3 (05:50→22:48)
[2019-03-31 07:05] LABS: Lactate-non-spesis 1.5 mmol/l (0.6-1.4)
[2019-03-31 07:06] LABS: RBC Distribution Width 12.9 % (11.8-14.1); White Blood Cell Count 9.57 k/cumm (4.4-10.8)
[2019-03-31 07:29] LABS: ALT 26 U/L (12-78); AST 44 U/L (15-37); Albumin 3.7 g/dL (3.4-5.0); Alkaline Phosphatase 62 U/L (46-116); Anion Gap 14.7 mmol/L (3-11); BUN 8 mg/dL (7-18); Bilirubin, Total 1.3 mg/dL (0.2-1.0); CO2 22.3 mmol/L (21.0-32.0); CREATININE 0.63 mg/dL (0.70-1.30); Calcium 8.2 mg/dL (8.5-10.1); Chloride 104 mmol/L (98-107); Glucose 110 mg/dL (70-100); Potassium 3.2 mmol/L (3.5-5.1); Sodium 141 mmol/L (136-145); Total Protein 7.1 g/dL (6.4-8.2)
[2019-03-31 07:33] LABS: HCT 42.1 % (40.0-50.0); HGB 14.8 g/dL (13.5-17.5); Mean Corp. HGB Concentration 35.2 g/dL (32.0-36.0); Mean Platelet Volume 11.1 fL (8.0-11.0); Platelet Count 123 x1000/uL (130-400); RBC 4.62 m/cumm (4.50-6.00)
[2019-03-31 07:37] LABS: Mean Corpuscular Volume 91.1 fL (80-95)
[2019-03-31] MEDS: POTASSIUM CHLORIDE/0.9% NACL 1,000 ML 150 MEQ IV ×3 (07:47→21:22)
[2019-03-31] MEDS: Thiamine 100 MG TAB PO (08:02)
[2019-03-31] MEDS: Folic Acid 1 MG TAB PO (08:02)
[2019-03-31] MEDS: Multivitamin TAB 1 TAB PO (08:02)
[2019-03-31] MEDS: Potassium Chloride 20 MEQ TABCR 40 MEQ PO (08:03)
[2019-03-31 08:15] LABS: Creatine Kinase 1146 U/L (39-308)
--- NOTE | 2019-03-31 08:17 | W.PM.PROGNOT ---
Date of Service Date of service: 03/31/19 Time of Service: 08:18 Assessment and Plan (1) Alcohol withdrawal seizure: Current visit: Yes Status: Acute Continue to monitor in ICU. Prn benzos if recurs. Treat alcohol withdrawal. Monitor on CIWA scale. IVF. (2) Alcohol abuse: Current visit: Yes Status: Chronic As above - also, provide vitamins/thiamine. (3) DTs (delirium tremens): Current visit: Yes Status: Suspected Mental status appears near baseline now, but we will monitor for delirium (4) Hypokalemia: Current visit: Yes Status: Acute Replete (5) Ambulatory dysfunction: Current visit: No Status: Acute PT/OT once mental status better (6) Lactic acidosis: Current visit: No Status: Resolved Likely due to a convulsive event. No evidence for infection. LA improved - no further need for monitoring. (7) Alcoholic ketoacidosis: Current visit: No Status: Acute Should resolve with IVF and once patient is tolerating PO (8) Closed head injury: Current visit: Yes Status: Acute Monitor neurochecks (9) Rhabdomyolysis: Current visit: Yes Status: Acute Likely due to alcohol withdrawal seizures. Continue IVF, trend CPK, monitor kidney function. (10) Vomiting: Current visit: Yes Status: Acute trend toward prolonged QTc noted on tele. Per nursing, this is normal for this patient's alcohol withdrawal. Zofran/reglan d/c'ed. Compazine does not cause QT prolongation - will trial. (11) Discharge planning issues: Current visit: No Status: Acute Homeless - case management aware. Full code Keep in ICU these 24 hours due to a high risk of recurrence of seizure. (12) DVT prophylaxis: Current visit: No Status: Acute SC heparin Subjective Interval history since last seen: No seizures in ICU. Arousable, but still not quite back to his baseline (sleepier, per nursing). Vomited x 3 in ICU - reglan seems to be working. Latest CIWA score 7 one hour ago. About to get 1 mg of ativan. Prior to this has had 5 mg of PO ativan since 8 am today. He woke up easily when I came to examine him. Reports abdominal pain only when he is vomiting, but he is feeling better now, no nausea. Denies dizziness, chest pain, shortness of breath. Has a nonproductive cough. Exam Narrative Exam Narrative: General: Disheveled middle-aged male, somnolent, arousable, A&Ox3, no obvious tremors HEENT: EOMI, dry MM Heart: RRR, no m/r/g Lungs: CTAB GI: abdomen is soft, nontender, nondistended Extremities: no e/c/c BLE's Objective Objective Clinical Data: Abnormal lab results 03/30/19 03/30/19 03/30/19 Range/Units 18:32 18:32 22:20 WBC 12.23 H (4.4-10.8) k/cumm MCV 95.5 H (80-95) fL Plt Count (130-400) x1000/uL MPV (8.0-11.0) fL Absolute Lymphocytes 4.70 H (1.2-3.4) k/cumm Absolute Monocytes 1.24 H (0.11-0.7) k/cumm Sodium 149 H (136-145) mmol/L Potassium 3.1 L (3.5-5.1) mmol/L Chloride (98-107) mmol/L Carbon Dioxide 11.2 L (21.0-32.0) mmol/L Anion Gap 33.8 H (3-11) mmol/L Creatinine (0.70-1.30) mg/dL Glucose 130 H (70-100) mg/dL Lactate 2.9 H (0.6-1.4) mmol/l Calcium (8.5-10.1) mg/dL Total Bilirubin (0.2-1.0) mg/dL AST 47 H (15-37) U/L Creatine Kinase (39-308) U/L Total Protein 8.4 H (6.4-8.2) g/dL 03/30/19 03/31/19 03/31/19 Range/Units 22:20 06:10 06:10 WBC (4.4-10.8) k/cumm MCV (80-95) fL Plt Count 123 L (130-400) x1000/uL MPV 11.1 H (8.0-11.0) fL Absolute Lymphocytes (1.2-3.4) k/cumm Absolute Monocytes (0.11-0.7) k/cumm Sodium 146 H (136-145) mmol/L Potassium 3.2 L D (3.5-5.1) mmol/L Chloride 108 H (98-107) mmol/L Carbon Dioxide 18.1 L (21.0-32.0) mmol/L Anion Gap 19.9 H 14.7 H (3-11) mmol/L Creatinine 0.63 L (0.70-1.30) mg/dL Glucose 118 H 110 H (70-100) mg/dL Lactate (0.6-1.4) mmol/l Calcium 8.2 L (8.5-10.1) mg/dL Total Bilirubin 1.3 H (0.2-1.0) mg/dL AST 47 H 44 H (15-37) U/L Creatine Kinase 1146 H (39-308) U/L Total Protein (6.4-8.2) g/dL 03/31/19 Range/Units 06:10 WBC (4.4-10.8) k/cumm MCV (80-95) fL Plt Count (130-400) x1000/uL MPV (8.0-11.0) fL Absolute Lymphocytes (1.2-3.4) k/cumm Absolute Monocytes (0.11-0.7) k/cumm Sodium (136-145) mmol/L Potassium (3.5-5.1) mmol/L Chloride (98-107) mmol/L Carbon Dioxide (21.0-32.0) mmol/L Anion Gap (3-11) mmol/L Creatinine (0.70-1.30) mg/dL Glucose (70-100) mg/dL Lactate 1.5 H (0.6-1.4) mmol/l Calcium (8.5-10.1) mg/dL Total Bilirubin (0.2-1.0) mg/dL AST (15-37) U/L Creatine Kinase (39-308) U/L Total Protein (6.4-8.2) g/dL Vital Signs Temperature 36.9 C 03/31/19 04:00 Temperature Source Tympanic 03/31/19 04:00 Pulse 91 H 03/31/19 05:46 Pulse 84 03/31/19 05:50 Respiratory Rate 25 H 03/31/19 05:50 Respiratory Effort 03/31/19 04:00 Respiratory Depth Normal 03/31/19 04:00 Respiratory Pattern Normal 03/31/19 04:00 Blood Pressure 160/86 H 03/31/19 05:46 Blood Pressure Mean 104 03/31/19 05:46 Blood Pressure Position Supine 03/30/19 22:45 Pulse Oximetry 93 L 03/31/19 05:50 Oxygen Delivery Method Room Air 03/30/19 22:45 Oxygen Flow Rate 0 03/30/19 22:45 Pain Level 0 03/31/19 04:00 Intake & Output 03/30/19 03/30/19 03/31/19 11:59 23:59 11:59 Intake Total 201 / 2148.5 3955.0 / 3955.0 Output Total 2700 / 2700 1875 / 1875 Balance -2499 / -551.5 2080.0 / 2080.0 Weight 109 kg 110.3 kg Intake: IV 201 / 2148.5 3895.0 / 3895.0 Oral 0 / 0 60 / 60 Output: Urine 700 / 700 1475 / 1475 Emesis 1999 / 1999 400 / 400 Other: Urine Color Pale Yellow Urine Appearance Clear Comment unable to assess this at this time uriarte to gravity with yellow urine Emesis Description Clear/Water Gastric Occult Blood Negative Laboratory Results WBC 9.57 k/cumm (4.4-10.8) 03/31/19 06:10 RBC 4.62 m/cumm (4.50-6.00) 03/31/19 06:10 Hgb 14.8 g/dL (13.5-17.5) 03/31/19 06:10 Hct 42.1 % (40.0-50.0) 03/31/19 06:10 MCV 91.1 fL (80-95) D 03/31/19 06:10 MCH 32.0 pg (27.0-33.0) 03/31/19 06:10 MCHC 35.2 g/dL (32.0-36.0) 03/31/19 06:10 RDW 12.9 % (11.8-14.1) 03/31/19 06:10 Plt Count 123 x1000/uL (130-400) L 03/31/19 06:10 MPV 11.1 fL (8.0-11.0) H 03/31/19 06:10 Immature Gran % 0.6 03/30/19 18:32 Neutrophils % 50.2 03/30/19 18:32 Lymphocytes % 38.4 03/30/19 18:32 Monocytes % 10.1 03/30/19 18:32 Eosinophils % 0.1 03/30/19 18:32 Basophils % 0.6 03/30/19 18:32 Absolute Neutrophils 6.14 k/cumm (1.2-6.7) 03/30/19 18:32 Absolute Lymphocytes 4.70 k/cumm (1.2-3.4) H 03/30/19 18:32 Absolute Monocytes 1.24 k/cumm (0.11-0.7) H 03/30/19 18:32 Absolute Eosinophils 0.01 k/cumm (0.0-0.7) 03/30/19 18:32 Absolute Basophils 0.07 k/cumm (0.0-0.2) 03/30/19 18:32 PT 9.9 sec (9.3-11.0) 03/30/19 18:32 INR 1.0 (0.9-1.1) 03/30/19 18:32 Sodium 141 mmol/L (136-145) 03/31/19 06:10 Potassium 3.2 mmol/L (3.5-5.1) L D 03/31/19 06:10 Chloride 104 mmol/L (98-107) 03/31/19 06:10 Carbon Dioxide 22.3 mmol/L (21.0-32.0) 03/31/19 06:10 Anion Gap 14.7 mmol/L (3-11) H 03/31/19 06:10 BUN 8 mg/dL (7-18) 03/31/19 06:10 Creatinine 0.63 mg/dL (0.70-1.30) L 03/31/19 06:10 Estimated GFR/1.73 m2 >= 60.00 (mL/min/1.73m2) 03/31/19 06:10 Glucose 110 mg/dL (70-100) H 03/31/19 06:10 Lactate 1.5 mmol/l (0.6-1.4) H 03/31/19 06:10 Calcium 8.2 mg/dL (8.5-10.1) L 03/31/19 06:10 Magnesium 2.1 mg/dL (1.8-2.4) 03/30/19 18:32 Total Bilirubin 1.3 mg/dL (0.2-1.0) H 03/31/19 06:10 AST 44 U/L (15-37) H 03/31/19 06:10 ALT 26 U/L (12-78) 03/31/19 06:10 Alkaline Phosphatase 62 U/L (46-116) 03/31/19 06:10 Creatine Kinase 1146 U/L (39-308) H 03/31/19 06:10 Troponin I 0.03 ng/mL (0.00-0.06) 03/31/19 00:47 Total Protein 7.1 g/dL (6.4-8.2) 03/31/19 06:10 Albumin 3.7 g/dL (3.4-5.0) 03/31/19 06:10 TSH 0.95 uIU/mL (0.358-3.74) 03/30/19 22:20 Urine Opiates Screen Negative (Negative) 03/30/19 20:30 Urine Methadone Screen Negative (Negative) 03/30/19 20:30 Ur Barbiturates Screen Negative (Negative) 03/30/19 20:30 Ur Tricyclics Screen Negative (Negative) 03/30/19 20:30 Ur Amphetamines Screen Negative (Negative) 03/30/19 20:30 U Benzodiazepines Scrn Negative (Negative) 03/30/19 20:30 Urine Cocaine Screen Negative (Negative) 03/30/19 20:30 Ur THC Screen Positive (Negative) 03/30/19 20:30 Ethyl Alcohol 46.1 mg/dL (<3) 03/30/19 18:32 CXR: No acute abnormality.
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
--- NOTE | 2019-03-31 09:03 | DI.RAD_ITS ---
SYMPTOM/DIAGNOSIS: VOMITING, COUGH, CONCERN FOR ASPIRATION PORTABLE CHEST: Comparison is made with 24 January 2019. The heart size is within normal limits for projection. There are leads overlying the chest. The lungs are grossly clear. IMPRESSION: No acute abnormality.
[2019-03-31] MEDS: Metoclopramide 10 MG/2 ML VIAL IVP (10:12)
[2019-03-31] MEDS: Pantoprazole 40 MG VIAL IVP (13:22)
[2019-04-01] VITALS (46 sets, daily range): BP systolic 124–166; BP diastolic 59–100; PULSE 67–100; RESP 18–20; TEMP 36.7–38.2; O2SAT 94–98
[2019-04-01] MEDS: LORazepam 1 MG TAB PO/SL ×2 (00:26→15:37)
[2019-04-01] MEDS: Acetaminophen 325 MG TAB 650 MG PO ×2 (00:40→15:38)
[2019-04-01] MEDS: POTASSIUM CHLORIDE/0.9% NACL 1,000 ML 150 MEQ IV (03:51)
[2019-04-01] MEDS: Heparin 5,000 UNITS/ML VIAL 5000 UNITS SC ×3 (06:43→21:05)
[2019-04-01 07:10] LABS: Abs Immature Grans 0.02 k/cumm (0.0-0.09); Absolute Basophil Count 0.02 k/cumm (0.0-0.2); Absolute Eosinophil Count 0.01 k/cumm (0.0-0.7); Absolute Lymphocyte Count 1.85 k/cumm (1.2-3.4); Absolute Monocyte Count 0.99 k/cumm (0.11-0.7); Basophils % 0.2; Eosinophils % 0.1; HCT 41.7 % (40.0-50.0); HGB 14.6 g/dL (13.5-17.5); Immature Grans % 0.2; Lymphocytes % 18.5; Mean Corpuscular Hemoglobin 31.7 pg (27.0-33.0); Mean Corpuscular Volume 90.7 fL (80-95); Monocytes % 9.9; Neutrophils % 71.1; Platelet Count 111 x1000/uL (130-400); White Blood Cell Count 9.99 k/cumm (4.4-10.8)
[2019-04-01 07:20] LABS: Anion Gap 12.2 mmol/L (3-11); BUN 6 mg/dL (7-18); CO2 21.8 mmol/L (21.0-32.0); CREATININE 0.67 mg/dL (0.70-1.30); Calcium 8.5 mg/dL (8.5-10.1); Chloride 105 mmol/L (98-107); Creatine Kinase 821 U/L (39-308); Glucose 85 mg/dL (70-100); Magnesium 1.8 mg/dL (1.8-2.4); Sodium 139 mmol/L (136-145)
--- NOTE | 2019-04-01 07:51 | PDOC.CMPRO ---
Care Management Progress Note S/O: Otilio was tired when CM met with him. He reported living with Dwayne Connors at this time though Jemal reports he does not have his cell phone and does not know if he could get in touch with Dwayne; CM encouraged Jemal that this issue could be tackled when he was feeling a bit better. CM continues to follow. A: 58 year old male admitted 03/30/19 for Seizures, Alcohol withdrawal, Hypokalemia P: Jemal remains in the ICU and ICU level of care; closely monitored and being treated for withdrawal per protocol. CM will continue to follow and support coordination of discharge plan.
[2019-04-01] MEDS: Mylanta Suspension 30 ML CUP PO ×2 (08:18→15:38)
[2019-04-01] MEDS: Pantoprazole 40 MG VIAL IVP ×2 (08:18→21:05)
--- NOTE | 2019-04-01 08:19 | W.PM.PROGNOT ---
Date of Service Date of service: 04/01/19 Time of Service: : Assessment and Plan (1) Alcohol withdrawal seizure: Current visit: Yes Status: Acute Continue to monitor in ICU as the patient usually gets worse by withdrawal day 3. Prn benzos if recurs. Treat alcohol withdrawal. Monitor on CIWA scale. Continue IVF. (2) Alcohol abuse: Current visit: Yes Status: Chronic As above - also, provide vitamins/thiamine. (3) DTs (delirium tremens): Current visit: Yes Status: Acute Treat alcohol withdrawal (4) Hypokalemia: Current visit: Yes Status: Resolved Monitor K (5) Ambulatory dysfunction: Current visit: No Status: Acute PT/OT once mental status better (6) Lactic acidosis: Current visit: No Status: Resolved Likely due to a convulsive event. No evidence for infection. LA improved - no further need for monitoring. (7) Alcoholic ketoacidosis: Current visit: No Status: Acute Should resolve with IVF and once patient is tolerating PO (8) Closed head injury: Current visit: Yes Status: Acute Monitor neurochecks (9) Rhabdomyolysis: Current visit: Yes Status: Acute Likely due to alcohol withdrawal seizures. Improving Continue IVF, trend CPK, monitor kidney function. (10) Vomiting: Current visit: Yes Status: Acute Continue prn Compazine. Normal part of patient's alcohol withdrawal. Because of this, it appears he now has some esophagitis - provide PPI IV, carafate, prn mylanta, antiemetics. Check hemoccult (11) Discharge planning issues: Current visit: No Status: Acute Homeless - case management aware. Full code Keep in ICU due to a very real possibility of the patient's withdrawal getting worse (12) DVT prophylaxis: Current visit: No Status: Acute SC heparin Subjective Interval history since last seen: Reports chest pain since last night. This got better with mylanta and viscous lidocaine, but is worse now that the patient tried regular consistency diet (Tolerated clears). No Afib since ED, remains in NSR. CIWA at midnight was 11, 3 of ativan PO given. When asked how he is feeling, he complains of chest tightness on the right, reproducible with palpation and nausea. Our interview had to be aborted as the patient got actively nauseated. Exam Narrative Exam Narrative: General: Disheveled middle-aged male, somnolent, arousable, does not recognize me, visibly nauseated HEENT: EOMI, dry MM Heart: RRR, no m/r/g Lungs: CTAB GI: abdomen is soft, but got nauseated immediately after I palpated his epigastrium Extremities: no e/c/c BLE's Objective Objective Clinical Data: Abnormal lab results 04/01/19 04/01/19 Range/Units 06:00 06:00 Plt Count 111 L (130-400) x1000/uL MPV 12.0 H (8.0-11.0) fL Absolute Neutrophils 7.10 H (1.2-6.7) k/cumm Absolute Monocytes 0.99 H (0.11-0.7) k/cumm Anion Gap 12.2 H (3-11) mmol/L BUN 6 L (7-18) mg/dL Creatinine 0.67 L (0.70-1.30) mg/dL Creatine Kinase 821 H (39-308) U/L Vital Signs Temperature 36.7 C 04/01/19 03:00 Temperature Source Temporal Artery Scan 04/01/19 03:00 Pulse 78 04/01/19 06:01 Pulse 87 04/01/19 06:30 Respiratory Rate 20 04/01/19 03:00 Respiratory Effort 04/01/19 03:00 Respiratory Depth Normal 04/01/19 03:00 Respiratory Pattern Normal 04/01/19 03:00 Blood Pressure 124/60 04/01/19 06:01 Blood Pressure Mean 75 04/01/19 06:01 Blood Pressure Position Supine 04/01/19 03:00 Pulse Oximetry 97 04/01/19 06:30 Oxygen Delivery Method Room Air 04/01/19 03:00 Oxygen Flow Rate 0 04/01/19 03:00 Pain Level 7 04/01/19 07:51 Intake & Output 03/31/19 03/31/19 04/01/19 11:59 23:59 11:59 Intake Total 3955.0 / 6170.5 2215.5 / 6170.5 1072.5 / 1072.5 Output Total 2825 / 4450 1625 / 4450 1550 / 1550 Balance 1130.0 / 1720.5 590.5 / 1720.5 -477.5 / -477.5 Weight 110.3 kg 108.7 kg Intake: IV 3895.0 / 5892.5 1997.5 / 5892.5 972.5 / 972.5 Oral 60 / 278 218 / 278 100 / 100 Output: Urine 2275 / 3900 1625 / 3900 1550 / 1550 Emesis 550 / 550 Other: Urine Color Light Makayla Light Makayla Light Makayla Urine Appearance Clear Cloudy Urine Odor None Comment Alexander to gravity - clear yellow. Alexander in place Alexander in place, draining QS. Emesis Description Coffee Grounds Gastric Occult Blood Negative Voiding Methods Indwelling Catheter Laboratory Results WBC 9.99 k/cumm (4.4-10.8) 04/01/19 06:00 RBC 4.60 m/cumm (4.50-6.00) 04/01/19 06:00 Hgb 14.6 g/dL (13.5-17.5) 04/01/19 06:00 Hct 41.7 % (40.0-50.0) 04/01/19 06:00 MCV 90.7 fL (80-95) 04/01/19 06:00 MCH 31.7 pg (27.0-33.0) 04/01/19 06:00 MCHC 35.0 g/dL (32.0-36.0) 04/01/19 06:00 RDW 13.0 % (11.8-14.1) 04/01/19 06:00 Plt Count 111 x1000/uL (130-400) L 04/01/19 06:00 MPV 12.0 fL (8.0-11.0) H 04/01/19 06:00 Immature Gran % 0.2 04/01/19 06:00 Neutrophils % 71.1 04/01/19 06:00 Lymphocytes % 18.5 04/01/19 06:00 Monocytes % 9.9 04/01/19 06:00 Eosinophils % 0.1 04/01/19 06:00 Basophils % 0.2 04/01/19 06:00 Absolute Neutrophils 7.10 k/cumm (1.2-6.7) H 04/01/19 06:00 Absolute Lymphocytes 1.85 k/cumm (1.2-3.4) 04/01/19 06:00 Absolute Monocytes 0.99 k/cumm (0.11-0.7) H 04/01/19 06:00 Absolute Eosinophils 0.01 k/cumm (0.0-0.7) 04/01/19 06:00 Absolute Basophils 0.02 k/cumm (0.0-0.2) 04/01/19 06:00 PT 9.9 sec (9.3-11.0) 03/30/19 18:32 INR 1.0 (0.9-1.1) 03/30/19 18:32 Sodium 139 mmol/L (136-145) 04/01/19 06:00 Potassium 4.0 mmol/L (3.5-5.1) D 04/01/19 06:00 Chloride 105 mmol/L (98-107) 04/01/19 06:00 Carbon Dioxide 21.8 mmol/L (21.0-32.0) 04/01/19 06:00 Anion Gap 12.2 mmol/L (3-11) H 04/01/19 06:00 BUN 6 mg/dL (7-18) L 04/01/19 06:00 Creatinine 0.67 mg/dL (0.70-1.30) L 04/01/19 06:00 Estimated GFR/1.73 m2 >= 60.00 (mL/min/1.73m2) 04/01/19 06:00 Glucose 85 mg/dL (70-100) 04/01/19 06:00 Lactate 1.5 mmol/l (0.6-1.4) H 03/31/19 06:10 Calcium 8.5 mg/dL (8.5-10.1) 04/01/19 06:00 Magnesium 1.8 mg/dL (1.8-2.4) 04/01/19 06:00 Total Bilirubin 1.3 mg/dL (0.2-1.0) H 03/31/19 06:10 AST 44 U/L (15-37) H 03/31/19 06:10 ALT 26 U/L (12-78) 03/31/19 06:10 Alkaline Phosphatase 62 U/L (46-116) 03/31/19 06:10 Creatine Kinase 821 U/L (39-308) H 04/01/19 06:00 Troponin I 0.03 ng/mL (0.00-0.06) 03/31/19 00:47 Total Protein 7.1 g/dL (6.4-8.2) 03/31/19 06:10 Albumin 3.7 g/dL (3.4-5.0) 03/31/19 06:10 TSH 0.95 uIU/mL (0.358-3.74) 03/30/19 22:20 Urine Opiates Screen Negative (Negative) 03/30/19 20:30 Urine Methadone Screen Negative (Negative) 03/30/19 20:30 Ur Barbiturates Screen Negative (Negative) 03/30/19 20:30 Ur Tricyclics Screen Negative (Negative) 03/30/19 20:30 Ur Amphetamines Screen Negative (Negative) 03/30/19 20:30 U Benzodiazepines Scrn Negative (Negative) 03/30/19 20:30 Urine Cocaine Screen Negative (Negative) 03/30/19 20:30 Ur THC Screen Positive (Negative) 03/30/19 20:30 Ethyl Alcohol 46.1 mg/dL (<3) 03/30/19 18:32
[2019-04-01] MEDS: Lidocaine 2% Viscous 15 ML CUP PO (08:25)
[2019-04-01] MEDS: Folic Acid 1 MG TAB PO (08:25)
[2019-04-01] MEDS: Thiamine 100 MG TAB PO (08:26)
[2019-04-01] MEDS: Multivitamin TAB 1 TAB PO (08:26)
[2019-04-01 09:34] LABS: Troponin I < 0.02 ng/mL (0.00-0.06)
--- NOTE | 2019-04-01 10:33 | PHARADMIT ---
Admission Pharmacy Clinical Review Seizures, alcohol withdrawal, hypokalemia Code Status Full Code Current Weight 108.7 kg Renally Cleared and Narrow Therapeutic Index Meds Crcl ~111.0 mL/min current meds okay QTc Value / Action Taken QTc 468 BP Control, Fever BP 124/60 afebrile Electrolytes reviewed within normal limits DVT Prophylaxis heparin Opiate Usage / Scheduled Bowel Regimen Ordered no/prn Plt/SCr for Heparin / Enoxaparin plt 111 (decreasing) SCr 0.67 INR for Warfarin n/a H/H stable, WBC/Bands h/h 14.6/41.7 wbc 9.99 Antibiotic appropriateness n/a Cultures and Sensitivities blood cultures no growth @24 hours Surgical ABX d/c within 24 hr n/a DM control / Insulin Dosing BG 85 none Heart Failure (Check EF%) (MENDY's, B-Block, Diuretics) metoprolol IV to PO Switch n/a Home Meds Reviewed yes Home Meds Not Ordered ibuprofen Comments watch platelets and CIWA
[2019-04-01] MEDS: Sucralfate 1 GM TAB PO ×3 (11:36→21:05)
[2019-04-01] MEDS: Normal Saline Flush 10 ML SYR IVP ×2 (12:26→21:05)
[2019-04-01] MEDS: Normal Saline 1,000 ML 150 ML IV ×2 (12:44→19:18)
[2019-04-01] MEDS: Prochlorperazine 10 MG/2 ML VIAL IVP (14:08)
[2019-04-01 14:36] LABS: Troponin I < 0.02 ng/mL (0.00-0.06)
[2019-04-02] VITALS (36 sets, daily range): BP systolic 133–189; BP diastolic 67–106; PULSE 60–107; RESP 14–18; TEMP 36.6–37.5; O2SAT 96–98
[2019-04-02] MEDS: Normal Saline 1,000 ML 150 ML IV (02:42)
[2019-04-02] MEDS: chlordiazePOXIDE 25 MG CAP PO ×2 (02:42→11:06)
[2019-04-02] MEDS: Heparin 5,000 UNITS/ML VIAL 5000 UNITS SC ×3 (05:22→22:08)
[2019-04-02 07:12] LABS: Abs Immature Grans 0.02 k/cumm (0.0-0.09); Absolute Basophil Count 0.03 k/cumm (0.0-0.2); Absolute Eosinophil Count 0.01 k/cumm (0.0-0.7); Absolute Monocyte Count 0.78 k/cumm (0.11-0.7); Absolute Neutrophil Count 4.43 k/cumm (1.2-6.7); Basophils % 0.4; Eosinophils % 0.1; HCT 43.1 % (40.0-50.0); HGB 15.6 g/dL (13.5-17.5); Immature Grans % 0.3; Lymphocytes % 25.5; Mean Corp. HGB Concentration 36.2 g/dL (32.0-36.0); Mean Corpuscular Hemoglobin 32.3 pg (27.0-33.0); Mean Corpuscular Volume 89.2 fL (80-95); Mean Platelet Volume 11.4 fL (8.0-11.0); Neutrophils % 62.7; Platelet Count 102 x1000/uL (130-400); RBC 4.83 m/cumm (4.50-6.00); RBC Distribution Width 12.7 % (11.8-14.1); White Blood Cell Count 7.07 k/cumm (4.4-10.8)
[2019-04-02 07:34] LABS: Anion Gap 12.9 mmol/L (3-11); BUN 7 mg/dL (7-18); CO2 24.1 mmol/L (21.0-32.0); CREATININE 0.69 mg/dL (0.70-1.30); Calcium 8.7 mg/dL (8.5-10.1); Chloride 101 mmol/L (98-107); Glucose 95 mg/dL (70-100); Magnesium 1.8 mg/dL (1.8-2.4); Potassium 3.3 mmol/L (3.5-5.1); Sodium 138 mmol/L (136-145)
[2019-04-02] MEDS: Sucralfate 1 GM TAB PO ×4 (07:42→22:07)
[2019-04-02] MEDS: Folic Acid 1 MG TAB PO (07:42)
[2019-04-02] MEDS: Thiamine 100 MG TAB PO (07:42)
[2019-04-02] MEDS: Multivitamin TAB 1 TAB PO (07:42)
[2019-04-02] MEDS: Pantoprazole 40 MG VIAL IVP ×2 (07:43→19:59)
[2019-04-02] MEDS: Normal Saline Flush 10 ML SYR IVP ×2 (07:43→19:57)
[2019-04-02 08:05] LABS: Creatine Kinase 270 U/L (39-308)
--- NOTE | 2019-04-02 08:20 | W.PM.PROGNOT ---
Date of Service Date of service: 04/02/19 Time of Service: 08:20 Assessment and Plan (1) Alcohol withdrawal seizure: Current visit: Yes Status: Acute Doing much better from alcohol withdrawal stand point. Ok to start weaning librium. Transferred out of ICU. Continue CIWA/vitamins. (2) Alcohol abuse: Current visit: Yes Status: Chronic As above - also, provide vitamins/thiamine. (3) DTs (delirium tremens): Current visit: Yes Status: Acute Treat alcohol withdrawal (4) Paroxysmal A-fib: Current visit: Yes Status: Acute seen on admission. not seen in ICU at all. Not safe for anticoagulation. He has not had an echo since 2016 - will obtain. (5) Hypokalemia: Current visit: Yes Status: Resolved Monitor K (6) Ambulatory dysfunction: Current visit: No Status: Acute PT/OT once mental status better (7) Lactic acidosis: Current visit: No Status: Resolved Likely due to a convulsive event. No evidence for infection. LA improved - no further need for monitoring. (8) Alcoholic ketoacidosis: Current visit: No Status: Acute Should resolve with IVF and once patient is tolerating PO (9) Closed head injury: Current visit: Yes Status: Acute Monitor neurochecks (10) Rhabdomyolysis: Current visit: Yes Status: Resolved Likely due to alcohol withdrawal seizures. Resolved. Off IVF. Alexander out. (11) Vomiting: Current visit: Yes Status: Acute Continue prn Compazine. Normal part of patient's alcohol withdrawal. Advance diet as tolerated (12) Discharge planning issues: Current visit: No Status: Acute Homeless - case management aware. Full code Transferred to med surg with tele. (13) DVT prophylaxis: Current visit: No Status: Acute SC heparin Subjective Interval history since last seen: Transferred out of ICU. Started on librium yesterday evening - since then, low CIWA scores. More self-aware. Still mildly nauseated now, but no vomiting. Denies dizziness, states chest discomfort when swallowing is much better, denies shortness of breath. Endorses a nonproductive cough. Denies abdominal pain. Exam Narrative Exam Narrative: General: Disheveled middle-aged male, A&OX3, looks much more alert/engaged than yesterday HEENT: EOMI, dry MM Heart: RRR, no m/r/g Lungs: CTAB GI: abdomen is soft, but got nauseated immediately after I palpated his epigastrium Extremities: no e/c/c BLE's Objective Objective Clinical Data: Abnormal lab results 04/02/19 04/02/19 Range/Units 06:18 06:18 MCHC 36.2 H (32.0-36.0) g/dL Plt Count 102 L (130-400) x1000/uL MPV 11.4 H (8.0-11.0) fL Absolute Monocytes 0.78 H (0.11-0.7) k/cumm Potassium 3.3 L (3.5-5.1) mmol/L Anion Gap 12.9 H (3-11) mmol/L Creatinine 0.69 L (0.70-1.30) mg/dL Vital Signs Temperature 36.6 C 04/02/19 04:10 Temperature Source Temporal Artery Scan 04/02/19 04:10 Pulse 77 04/01/19 19:11 Pulse 60 04/02/19 04:00 Respiratory Rate 20 04/01/19 03:00 Respiratory Effort Non-Labored 04/02/19 04:10 Respiratory Depth Normal 04/02/19 04:10 Respiratory Pattern Normal 04/02/19 04:10 Blood Pressure 164/99 H 04/01/19 19:11 Blood Pressure Mean 112 04/01/19 19:11 Blood Pressure Position Supine 04/01/19 03:00 Pulse Oximetry 95 04/01/19 15:34 Oxygen Delivery Method Room Air 04/02/19 04:10 Oxygen Flow Rate 0 04/02/19 04:10 Pain Level 2 04/02/19 00:22 Intake & Output 04/01/19 04/01/19 04/02/19 11:59 23:59 11:59 Intake Total 1072.5 / 3412.5 2340.0 / 3412.5 1200 / 1200 Output Total 2650 / 4875 2225 / 4875 1800 / 1800 Balance -1577.5 / -1462.5 115.0 / -1462.5 -600 / -600 Weight 108.7 kg 109.4 kg Intake: IV 972.5 / 2972.5 2000.0 / 2972.5 1000 / 1000 Oral 100 / 440 340 / 440 200 / 200 Output: Urine 2650 / 4875 2225 / 4875 1800 / 1800 Other: Urine Color Light Makayla Light Makayla Vazquez Urine Appearance Clear Clear Clear Urine Odor None Comment Alexander to gravity Alexander in place. Alexander in place. Voiding Methods Indwelling Catheter Laboratory Results WBC 7.07 k/cumm (4.4-10.8) 04/02/19 06:18 RBC 4.83 m/cumm (4.50-6.00) 04/02/19 06:18 Hgb 15.6 g/dL (13.5-17.5) 04/02/19 06:18 Hct 43.1 % (40.0-50.0) 04/02/19 06:18 MCV 89.2 fL (80-95) 04/02/19 06:18 MCH 32.3 pg (27.0-33.0) 04/02/19 06:18 MCHC 36.2 g/dL (32.0-36.0) H 04/02/19 06:18 RDW 12.7 % (11.8-14.1) 04/02/19 06:18 Plt Count 102 x1000/uL (130-400) L 04/02/19 06:18 MPV 11.4 fL (8.0-11.0) H 04/02/19 06:18 Immature Gran % 0.3 04/02/19 06:18 Neutrophils % 62.7 04/02/19 06:18 Lymphocytes % 25.5 04/02/19 06:18 Monocytes % 11.0 04/02/19 06:18 Eosinophils % 0.1 04/02/19 06:18 Basophils % 0.4 04/02/19 06:18 Absolute Neutrophils 4.43 k/cumm (1.2-6.7) 04/02/19 06:18 Absolute Lymphocytes 1.80 k/cumm (1.2-3.4) 04/02/19 06:18 Absolute Monocytes 0.78 k/cumm (0.11-0.7) H 04/02/19 06:18 Absolute Eosinophils 0.01 k/cumm (0.0-0.7) 04/02/19 06:18 Absolute Basophils 0.03 k/cumm (0.0-0.2) 04/02/19 06:18 PT 9.9 sec (9.3-11.0) 03/30/19 18:32 INR 1.0 (0.9-1.1) 03/30/19 18:32 Sodium 138 mmol/L (136-145) 04/02/19 06:18 Potassium 3.3 mmol/L (3.5-5.1) L 04/02/19 06:18 Chloride 101 mmol/L (98-107) 04/02/19 06:18 Carbon Dioxide 24.1 mmol/L (21.0-32.0) 04/02/19 06:18 Anion Gap 12.9 mmol/L (3-11) H 04/02/19 06:18 BUN 7 mg/dL (7-18) 04/02/19 06:18 Creatinine 0.69 mg/dL (0.70-1.30) L 04/02/19 06:18 Estimated GFR/1.73 m2 >= 60.00 (mL/min/1.73m2) 04/02/19 06:18 Glucose 95 mg/dL (70-100) 04/02/19 06:18 Lactate 1.5 mmol/l (0.6-1.4) H 03/31/19 06:10 Calcium 8.7 mg/dL (8.5-10.1) 04/02/19 06:18 Magnesium 1.8 mg/dL (1.8-2.4) 04/02/19 06:18 Total Bilirubin 1.3 mg/dL (0.2-1.0) H 03/31/19 06:10 AST 44 U/L (15-37) H 03/31/19 06:10 ALT 26 U/L (12-78) 03/31/19 06:10 Alkaline Phosphatase 62 U/L (46-116) 03/31/19 06:10 Creatine Kinase 270 U/L (39-308) 04/02/19 06:18 Troponin I < 0.02 ng/mL (0.00-0.06) 04/01/19 13:58 Total Protein 7.1 g/dL (6.4-8.2) 03/31/19 06:10 Albumin 3.7 g/dL (3.4-5.0) 03/31/19 06:10 TSH 0.95 uIU/mL (0.358-3.74) 03/30/19 22:20 Urine Opiates Screen Negative (Negative) 03/30/19 20:30 Urine Methadone Screen Negative (Negative) 03/30/19 20:30 Ur Barbiturates Screen Negative (Negative) 03/30/19 20:30 Ur Tricyclics Screen Negative (Negative) 03/30/19 20:30 Ur Amphetamines Screen Negative (Negative) 03/30/19 20:30 U Benzodiazepines Scrn Negative (Negative) 03/30/19 20:30 Urine Cocaine Screen Negative (Negative) 03/30/19 20:30 Ur THC Screen Positive (Negative) 03/30/19 20:30 Ethyl Alcohol 46.1 mg/dL (<3) 03/30/19 18:32
[2019-04-02] MEDS: POTASSIUM CHLORIDE 20 MEQ/100 ML BAG 50 MEQ IVPB ×2 (08:35→11:07)
--- NOTE | 2019-04-02 15:58 | PDOC.CMPRO ---
Care Management Progress Note S/O: Otilio was sitting up in his chair when CM met with him. He was watching television and shared insight to his choice of a show on [employer]. He made good eye contact and was appropriate in interaction. He reported he would be discharging to his friend Lo at [address] [place] [address] via RCT upon discharge. CM discussed possibility of inpatient rehab; Otilio was not agreeable at this time. CM will continue to follow. A: 58 year old male admitted 03/30/19 for Seizures, Alcohol withdrawal, Hypokalemia P: Jemal's diet has been advanced with continued monitoring at this time. He reports he will discharge to his friend Lo at [address] [place] [address] via RCT upon discharge. CM will continue to follow and support coordination of discharge plan.
--- NOTE | 2019-04-02 16:01 | CMPROGNOTE_ITS ---
Care Management Progress Note S/O: Otilio was sitting up in his chair when CM met with him. He was watching television and shared insight to his choice of a show on [employer]. He made good eye contact and was appropriate in interaction. He reported he would be discharging to his friend Lo at [address] [place] [address] via RCT upon discharge. CM discussed possibility of inpatient rehab; Otilio was not agreeable at this time. CM will continue to follow. A: 58 year old male admitted 03/30/19 for Seizures, Alcohol withdrawal, Hypokalemia P: Jemal's diet has been advanced with continued monitoring at this time. He reports he will discharge to his friend Lo at [address] [place] [address] via RCT upon discharge. CM will continue to follow and support coordination of discharge plan.
[2019-04-02] MEDS: LORazepam 1 MG TAB PO/SL (20:23)
[2019-04-02] MEDS: Acetaminophen 325 MG TAB 650 MG PO (20:24)
[2019-04-02] MEDS: Mylanta Suspension 30 ML CUP PO (20:24)
[2019-04-03 00:46] VITALS: BP 147/94; PULSE 87; RESP 18; TEMP 36.6; O2SAT 96
[2019-04-03] MEDS: LORazepam 1 MG TAB PO/SL (03:25)
[2019-04-03 03:30] VITALS: BP 141/97; PULSE 71; RESP 17; TEMP 36.5; O2SAT 93
[2019-04-03] MEDS: Heparin 5,000 UNITS/ML VIAL 5000 UNITS SC ×3 (05:54→21:42)
[2019-04-03 07:45] VITALS: BP 131/91; PULSE 77; RESP 16; TEMP 36.7; O2SAT 94
[2019-04-03] MEDS: Multivitamin TAB 1 TAB PO (07:56)
[2019-04-03] MEDS: Sucralfate 1 GM TAB PO ×4 (07:56→21:42)
[2019-04-03] MEDS: Pantoprazole 40 MG VIAL IVP ×2 (07:56→19:56)
[2019-04-03] MEDS: Folic Acid 1 MG TAB PO (07:56)
[2019-04-03] MEDS: Thiamine 100 MG TAB PO (07:56)
[2019-04-03] MEDS: Normal Saline Flush 10 ML SYR IVP ×2 (07:57→19:56)
[2019-04-03 08:46] LABS: Abs Immature Grans 0.04 k/cumm (0.0-0.09); Absolute Basophil Count 0.02 k/cumm (0.0-0.2); Absolute Eosinophil Count 0.05 k/cumm (0.0-0.7); Absolute Lymphocyte Count 1.97 k/cumm (1.2-3.4); Absolute Monocyte Count 0.72 k/cumm (0.11-0.7); Absolute Neutrophil Count 2.98 k/cumm (1.2-6.7); Basophils % 0.3; Eosinophils % 0.9; HCT 44.5 % (40.0-50.0); Immature Grans % 0.7; Lymphocytes % 34.1; Mean Corpuscular Hemoglobin 31.9 pg (27.0-33.0); Mean Corpuscular Volume 88.8 fL (80-95); Mean Platelet Volume 11.7 fL (8.0-11.0); Monocytes % 12.5; Neutrophils % 51.5; Platelet Count 107 x1000/uL (130-400); RBC 5.01 m/cumm (4.50-6.00); White Blood Cell Count 5.78 k/cumm (4.4-10.8)
--- NOTE | 2019-04-03 09:00 | MERGE_ITS ---
*[facility]* *[facility]* [address] [place] [address] Date of study: 04/03/2019 Transthoracic Echocardiography M-mode, complete 2D, complete spectral Doppler, and color Doppler *STUDY CONCLUSIONS* Summary: 1. Left ventricle: The cavity size was normal. Wall thickness was normal. Systolic function was normal. The estimated ejection fraction was 60-65%. Wall motion was normal; there were no regional wall motion abnormalities. 2. Aortic valve: Trileaflet; normal thickness leaflets. 3. Ascending aorta: The ascending aorta was mildly to moderately dilated. 4.0 cm. 4. Right ventricle: The cavity size was normal. Wall thickness was normal. Systolic function was normal. *PATIENT PRESENTATION* Height: 182.9cm ((72in) ) S/D Pressure: 141 / 97 Weight: 109.3kg ((240.5lb) ) BSA: 2.39m^2 Test start time: 09:00 AM. Test stop time: 09:51 AM. CONSULTING Otilio Fox MD PERFORMING Unknown PERFORMING [facility]IDENTIAL REMODELING SUBCONTRACTOR Linda Hart Yelena A REFERRING Kogan, Yelena A *PROCEDURE DATA* Procedure information: This study was interpreted by [facility]. Pertinent images and digital data are archived for permanent storage and are available for subsequent review. Comparison was made to the study of 04/18/2016. Study status: Routine. Transthoracic echocardiography. M-mode, complete 2D, complete spectral Doppler, and color Doppler. A Transthoracic Echocardiogram was performed. Scanning was performed from the parasternal, apical, subcostal, and suprasternal notch acoustic windows. Images were obtained using an [employer] [facility] [employer] [facility] 2000 cardiac ultrasound machine. Image quality was adequate. Study completion: The patient tolerated the procedure well. There were no complications. History: PMH: Atrial Fibrilation. *CARDIAC ANATOMY* Left ventricle: The cavity size was normal. Wall thickness was normal. Systolic function was normal. The estimated ejection fraction was 60-65%. Wall motion was normal; there were no regional wall motion abnormalities. The study was not technically sufficient to allow evaluation of LV diastolic dysfunction due to atrial fibrillation. Aortic valve: Trileaflet; normal thickness leaflets. Mobility was not restricted. Doppler: Transvalvular velocity was within the normal range. There was no stenosis. There was no significant regurgitation. VTI ratio of LVOT to aortic valve: 1.03. Valve area (VTI): 3.9cm^2. Indexed valve area (VTI): 1.6cm^2/m^2. Peak velocity ratio of LVOT to aortic valve: 0.8. Valve area (Vmax): 3.1cm^2. Indexed valve area (Vmax): 1.3cm^2/m^2. Mean velocity ratio of LVOT to aortic valve: 0.82. Valve area (Vmean): 3.2cm^2. Indexed valve area (Vmean): 1.3cm^2/m^2. Mean gradient (S): 2.5mm Hg. Peak gradient (S): 4.7mm Hg. Aorta: Aortic root: The aortic root was normal in size. Ascending aorta: The ascending aorta was mildly to moderately dilated. 4.0 cm. Mitral valve: Structurally normal valve. Mobility was not restricted. Doppler: Transvalvular velocity was within the normal range. There was no evidence for stenosis. There was no significant regurgitation. Valve area by pressure half-time: 2.8cm^2. Indexed valve area by pressure half-time: 1.2cm^2/m^2. Left atrium: The atrium was normal in size. Right ventricle: The cavity size was normal. Wall thickness was normal. Systolic function was normal. Pulmonic valve: Structurally normal valve. Doppler: Transvalvular velocity was within the normal range. There was no evidence for stenosis. There was trivial regurgitation. Peak gradient (S): 2.8mm Hg. Tricuspid valve: Structurally normal valve. Doppler: Transvalvular velocity was within the normal range. There was no evidence for stenosis. There was mild regurgitation. Pulmonary artery: Pulmonary systolic pressure was within the normal range. Right atrium: The atrium was normal in size. Pericardium: There was no pericardial effusion. Systemic veins: Inferior vena cava: The vessel was normal in size. Measurements Left ventricle Value Reference LV ID, ED, PLAX 4.0 cm 3.5 - 6.0 LV ID, ES, PLAX 2.6 cm 2.1 - 4.0 LV PW thickness, ED, PLAX 1.0 cm LV end-diastolic volume, 1-p A2C 67 ml LV ejection fraction, 1-p A2C 52 % LV end-diastolic volume, 1-p A4C 72 ml LV ejection fraction, 1-p A4C 50 % LV e', lateral 0.06 m/sec LV E/e', lateral 10 LV e', medial 0.052 m/sec LV E/e', medial 11 LV e', average 0.056 m/sec LV E/e', average 11 Ventricular septum Value Reference IVS thickness, ED, PLAX 1.0 cm LVOT Value Reference LVOT ID, A-P 2.2 cm LVOT area 3.8 cm^2 LVOT peak velocity, S 0.87 m/sec LVOT mean velocity, S 0.62 m/sec LVOT VTI, S 19.5 cm LVOT peak gradient, S 3.1 mm Hg LVOT mean gradient, S 1.7 mm Hg Stroke volume (SV), LVOT DP 75 ml Stroke index (SV/bsa), LVOT DP 31 ml/m^2 Aortic valve Value Reference Aortic valve peak velocity, S 1.1 m/sec Aortic valve mean velocity, S 0.75 m/sec Aortic valve VTI, S 19.0 cm Aortic mean gradient, S 2.5 mm Hg Aortic peak gradient, S 4.7 mm Hg VTI ratio, LVOT/AV 1.03 Aortic valve area, VTI 3.9 cm^2 Velocity ratio, peak, LVOT/AV 0.8 Aortic valve area, peak velocity 3.1 cm^2 Velocity ratio, mean, LVOT/AV 0.82 Aortic valve area, mean velocity 3.2 cm^2 Aortic valve area/bsa, mean velocity 1.3 cm^2/m^2 Aorta Value Reference Aortic root ID, ED 3.6 cm Ascending aorta ID, A-P, S 4.0 cm Left atrium Value Reference LA ID, A-P, ES 3.0 cm LA ID/bsa, A-P 1.3 cm/m^2 <=2.2 LA area, ES, A4C 15.8 cm^2 8.8 - 23.4 LA area, ES, A2C 16 cm^2 LA volume/bsa, S 19 ml/m^2 LA volume, ES, 2-p 41 ml LA volume/bsa, ES, 2-p 17 ml/m^2 LA/aortic root ratio 0.85 Mitral valve Value Reference Mitral E-wave peak velocity 0.59 m/sec Mitral A-wave peak velocity 0.71 m/sec Mitral deceleration time (H) 267 ms 150 - 230 Mitral pressure half-time 78 ms Mitral E/A ratio, peak 0.83 Mitral valve area, PHT, DP 2.8 cm^2 Pulmonary arteries Value Reference PA pressure, S, DP 20 mm Hg <=30 Tricuspid valve Value Reference Tricuspid regurg peak velocity 1.8 m/sec Tricuspid peak RV-RA gradient 13.3 mm Hg Right atrium Value Reference RA area, ES, A4C 14.6 cm^2 8.3 - 19.5 Pulmonic valve Value Reference Pulmonic peak gradient, S 2.8 mm Hg Legend: (L) and (H) ciaran values outside specified reference range. I have personally reviewed the images and have reviewed and edited the reported findings. Electronically signed by Daniel Delarosa 04/03/2019 10:43
[2019-04-03 09:01] LABS: Anion Gap 10.3 mmol/L (3-11); BUN 9 mg/dL (7-18); CO2 24.7 mmol/L (21.0-32.0); CREATININE 0.72 mg/dL (0.70-1.30); Calcium 9.7 mg/dL (8.5-10.1); Chloride 102 mmol/L (98-107); Glucose 95 mg/dL (70-100); Magnesium 2.1 mg/dL (1.8-2.4); Potassium 3.7 mmol/L (3.5-5.1); Sodium 137 mmol/L (136-145)
[2019-04-03 12:07] VITALS: PULSE 82
--- NOTE | 2019-04-03 12:31 | W.PM.PROGNOT ---
Date of Service Date of service: 04/03/19 Time of Service: 12:31 Assessment and Plan (1) Alcohol withdrawal seizure: Current visit: Yes Status: Acute Significantly better. D/c librium. Continue prn po ativan, vitamins. (2) Alcohol abuse: Current visit: Yes Status: Chronic As above (3) DTs (delirium tremens): Current visit: Yes Status: Resolved As above (4) Paroxysmal A-fib: Current visit: Yes Status: Chronic No recurrences. D/c tele. Not a good candidate for anticoagulation. Echo done today: EF is preserved (60-65%), no evidence of intracardiac thrombi on this transthoracic study. (5) Hypokalemia: Current visit: Yes Status: Resolved Monitor K (6) Ambulatory dysfunction: Current visit: No Status: Acute PT/OT (7) Lactic acidosis: Current visit: No Status: Resolved Likely due to a convulsive event. No evidence for infection. LA improved - no further need for monitoring. (8) Alcoholic ketoacidosis: Current visit: No Status: Resolved Resolved (9) Closed head injury: Current visit: Yes Status: Resolved At baseline (10) Rhabdomyolysis: Current visit: Yes Status: Resolved Likely due to alcohol withdrawal seizures. Resolved. Off IVF. Alexander out. (11) Vomiting: Current visit: Yes Status: Acute Continue prn Compazine. Normal part of patient's alcohol withdrawal. Advance diet as tolerated (12) Discharge planning issues: Current visit: No Status: Acute Homeless - case management aware. Full code Tele d/c'ed. Hopefully discharge home tomorrow if tolerates PO (13) DVT prophylaxis: Current visit: No Status: Acute SC heparin Subjective Interval history since last seen: Mr Pedraza states he still has a lot of pain when he tries to swallow (he points to his throat and upper central chest). He denies dizziness, shortness of breath, abdominal pain. He does feel constipated. He still has nausea and states that he almost vomited this morning. He does not feel ready to go home today. He states he does not know where to go. His CIWA scores have been low. Exam Narrative Exam Narrative: General: Disheveled middle-aged male, A&OX3, looks tired/sleepy HEENT: EOMI, MMM Heart: RRR, no m/r/g Lungs: CTAB GI: abdomen is soft, nontender, nondistended Extremities: no e/c/c BLE's Objective Objective Clinical Data: Abnormal lab results 04/03/19 Range/Units 07:08 Plt Count 107 L (130-400) x1000/uL MPV 11.7 H (8.0-11.0) fL Absolute Monocytes 0.72 H (0.11-0.7) k/cumm Vital Signs Temperature 36.7 C 04/03/19 07:45 Temperature Source Tympanic 04/03/19 07:45 Pulse 82 04/03/19 12:07 Pulse Rhythm Regular 04/03/19 07:45 Pulse 77 04/02/19 15:30 Respiratory Rate 16 04/03/19 07:45 Respiratory Effort 04/03/19 07:45 Respiratory Depth Normal 04/03/19 07:45 Respiratory Pattern Normal 04/03/19 07:45 Blood Pressure 131/91 H 04/03/19 07:45 Blood Pressure Mean 117 04/02/19 15:10 Blood Pressure Position Supine 04/01/19 03:00 Pulse Oximetry 94 L 04/03/19 07:45 Oxygen Delivery Method Room Air 04/03/19 07:45 Oxygen Flow Rate 0 04/03/19 07:45 Pain Level 0 04/03/19 03:30 Comment 04/03/19 07:45 Intake & Output 04/02/19 04/03/19 04/03/19 23:59 11:59 23:59 Intake Total 2410 / 3710 840 / 840 Output Total 1430 / 3880 600 / 600 Balance 980 / -170 240 / 240 Intake: IV 1110 / 2210 Oral 1300 / 1500 820 / 820 Output: Urine 1400 / 3850 600 / 600 Post Void Residual 30 / 30 Other: Urine Color Yellow Dark Makayla Urine Appearance Clear Clear Urine Odor Normal Normal Comment as reported at change of shift ALSO, SPILLED SOME ON FLOOR OR VOIDED ON FLOOR. BLADDER SCANNED AFTER FOR 0, 37, 0 Voiding Methods Urinal Urinal Laboratory Results WBC 5.78 k/cumm (4.4-10.8) 04/03/19 07:08 RBC 5.01 m/cumm (4.50-6.00) 04/03/19 07:08 Hgb 16.0 g/dL (13.5-17.5) 04/03/19 07:08 Hct 44.5 % (40.0-50.0) 04/03/19 07:08 MCV 88.8 fL (80-95) 04/03/19 07:08 MCH 31.9 pg (27.0-33.0) 04/03/19 07:08 MCHC 36.0 g/dL (32.0-36.0) 04/03/19 07:08 RDW 13.0 % (11.8-14.1) 04/03/19 07:08 Plt Count 107 x1000/uL (130-400) L 04/03/19 07:08 MPV 11.7 fL (8.0-11.0) H 04/03/19 07:08 Immature Gran % 0.7 04/03/19 07:08 Neutrophils % 51.5 04/03/19 07:08 Lymphocytes % 34.1 04/03/19 07:08 Monocytes % 12.5 04/03/19 07:08 Eosinophils % 0.9 04/03/19 07:08 Basophils % 0.3 04/03/19 07:08 Absolute Neutrophils 2.98 k/cumm (1.2-6.7) 04/03/19 07:08 Absolute Lymphocytes 1.97 k/cumm (1.2-3.4) 04/03/19 07:08 Absolute Monocytes 0.72 k/cumm (0.11-0.7) H 04/03/19 07:08 Absolute Eosinophils 0.05 k/cumm (0.0-0.7) 04/03/19 07:08 Absolute Basophils 0.02 k/cumm (0.0-0.2) 04/03/19 07:08 PT 9.9 sec (9.3-11.0) 03/30/19 18:32 INR 1.0 (0.9-1.1) 03/30/19 18:32 Sodium 137 mmol/L (136-145) 04/03/19 07:08 Potassium 3.7 mmol/L (3.5-5.1) 04/03/19 07:08 Chloride 102 mmol/L (98-107) 04/03/19 07:08 Carbon Dioxide 24.7 mmol/L (21.0-32.0) 04/03/19 07:08 Anion Gap 10.3 mmol/L (3-11) 04/03/19 07:08 BUN 9 mg/dL (7-18) 04/03/19 07:08 Creatinine 0.72 mg/dL (0.70-1.30) 04/03/19 07:08 Estimated GFR/1.73 m2 >= 60.00 (mL/min/1.73m2) 04/03/19 07:08 Glucose 95 mg/dL (70-100) 04/03/19 07:08 Lactate 1.5 mmol/l (0.6-1.4) H 03/31/19 06:10 Calcium 9.7 mg/dL (8.5-10.1) 04/03/19 07:08 Magnesium 2.1 mg/dL (1.8-2.4) 04/03/19 07:08 Total Bilirubin 1.3 mg/dL (0.2-1.0) H 03/31/19 06:10 AST 44 U/L (15-37) H 03/31/19 06:10 ALT 26 U/L (12-78) 03/31/19 06:10 Alkaline Phosphatase 62 U/L (46-116) 03/31/19 06:10 Creatine Kinase 270 U/L (39-308) 04/02/19 06:18 Troponin I < 0.02 ng/mL (0.00-0.06) 04/01/19 13:58 Total Protein 7.1 g/dL (6.4-8.2) 03/31/19 06:10 Albumin 3.7 g/dL (3.4-5.0) 03/31/19 06:10 TSH 0.95 uIU/mL (0.358-3.74) 03/30/19 22:20 Urine Opiates Screen Negative (Negative) 03/30/19 20:30 Urine Methadone Screen Negative (Negative) 03/30/19 20:30 Ur Barbiturates Screen Negative (Negative) 03/30/19 20:30 Ur Tricyclics Screen Negative (Negative) 03/30/19 20:30 Ur Amphetamines Screen Negative (Negative) 03/30/19 20:30 U Benzodiazepines Scrn Negative (Negative) 03/30/19 20:30 Urine Cocaine Screen Negative (Negative) 03/30/19 20:30 Ur THC Screen Positive (Negative) 03/30/19 20:30 Ethyl Alcohol 46.1 mg/dL (<3) 03/30/19 18:32
[2019-04-03] MEDS: Senna TAB 1 TAB PO ×2 (13:32→19:56)
[2019-04-03] MEDS: Docusate Sodium 100 MG CAP PO ×2 (13:32→19:56)
[2019-04-03 16:00] VITALS: BP 142/91; PULSE 86; RESP 18; TEMP 36.6; O2SAT 95
--- NOTE | 2019-04-03 17:46 | PDOC.CMPRO ---
Care Management Progress Note S/O: CM met with Otilio who reported ongoing issues with tolerating food and requesting support in finding a place to stay. Otilio reported he has been staying with friends and would like another option. CM reviewed options Otilio would either say no or maybe yes or maybe no but maybe yes. Therefore he appeared non-committal. CM reviewed possiblility of going to jail in [place]. CM also provided application for ([facility]) [facility] home in [place], [place]. CM spoke with intake who reported Otilio should complete an application, CM reviewed application with Otilio and offered support in completion and processing, CM also provided reading glasses for Otilio. Dr. Canales reports Otilio is not medically ready, anticipate possible discharge tomorrow. A: 58 year old male admitted 03/30/19 for Seizures, Alcohol withdrawal, Hypokalemia P: Jemal's diet has been advanced with continued monitoring at this time. Undetermined disposition; either to his friend Lo at [address] [place] [address] via RCT, his friend Dwayne or possibly a jail or [facility]. CM will continue to follow and support coordination of discharge plan.
--- NOTE | 2019-04-03 17:52 | CMPROGNOTE_ITS ---
Care Management Progress Note S/O: CM met with Otilio who reported ongoing issues with tolerating food and requesting support in finding a place to stay. Otilio reported he has been staying with friends and would like another option. CM reviewed options Otilio would either say no or maybe yes or maybe no but maybe yes. Therefore he appeared non-committal. CM reviewed possiblility of going to long-term in [place]. CM also provided application for ([facility]) [facility] home in [place], [place]. CM spoke with intake who reported Otilio should complete an application, CM reviewed application with Otilio and offered support in completion and processing, CM also provided reading glasses for Otilio. Dr. Canales reports Otilio is not medically ready, anticipate possible discharge tomorrow. A: 58 year old male admitted 03/30/19 for Seizures, Alcohol withdrawal, Hypokalemia P: Jemal's diet has been advanced with continued monitoring at this time. Undetermined disposition; either to his friend Lo at [address] [place] [address] via RCT, his friend Dwayne or possibly a long-term or [facility]. CM will continue to follow and support coordination of discharge plan.
[2019-04-03 20:28] VITALS: BP 158/96; PULSE 79; RESP 17; TEMP 36.4; O2SAT 94
[2019-04-04 04:03] VITALS: BP 129/85; PULSE 85; RESP 16; TEMP 36.2; O2SAT 95
[2019-04-04] MEDS: Heparin 5,000 UNITS/ML VIAL 5000 UNITS SC (05:46)
[2019-04-04 07:45] VITALS: BP 138/99; PULSE 89; RESP 18; TEMP 36.7; O2SAT 96
[2019-04-04] MEDS: Pantoprazole 40 MG VIAL IVP (09:28)
[2019-04-04] MEDS: Normal Saline Flush 10 ML SYR IVP (09:29)
[2019-04-04 09:30] VITALS: O2SAT 96
[2019-04-04] MEDS: Folic Acid 1 MG TAB PO (09:30)
[2019-04-04] MEDS: Thiamine 100 MG TAB PO (09:30)
[2019-04-04] MEDS: Sucralfate 1 GM TAB PO ×2 (09:30→12:34)
[2019-04-04] MEDS: Multivitamin TAB 1 TAB PO (09:30)
[2019-04-04] MEDS: Docusate Sodium 100 MG CAP PO (09:30)
[2019-04-04] MEDS: Senna TAB 1 TAB PO (09:30)
--- NOTE | 2019-04-04 12:14 | W.PM.DS.N ---
Date of service: 04/04/19 Time of Service: 12:14 DS: Diagnosis Discharge Diagnosis (1) Alcohol withdrawal seizure: Status: Acute (2) Alcohol withdrawal: Status: Acute (3) Alcohol abuse: Status: Chronic (4) Paroxysmal A-fib: Status: Chronic (5) Hypokalemia: Status: Resolved (6) Ambulatory dysfunction: Status: Acute (7) Lactic acidosis: Status: Resolved (8) Alcoholic ketoacidosis: Status: Resolved (9) Closed head injury: Status: Resolved (10) Rhabdomyolysis: Status: Resolved (11) Vomiting: Status: Resolved (12) Odynophagia: Status: Resolved Discharge Plan Disposition Patient Disposition: OTHER Condition: Critical Discharge Details Reason For Visit: SEIZURES, ALCOHOL WITHDRAWAL, HYPOKALEMIA Admit Date/Time: 03/30/19 20:36 Admit Provider: Ruddy Mcnulty Attending Provider: Brianna Canales Primary Care Provider: Otilio Fox Hospital Course Hospital Course: Mr Pedraza is a homeless 58 year old male with PMHx of a TBI, alcohol abuse with prior history of withdrawal seizures, paroxismal Afib not on anticoagulation, alcoholic cirrhosis, admitted to [facility] ICU on 03/30/19 with alcohol withdrawal seizures. He had one event prior to coming to the hospital which involved a fall from a seated position with closed head injury as well as one seizure event in the ER. He did not have any alcohol withdrawal seizures in the ICU. He was treated with scheduled and prn benzodiazepines for his withdrawal. A large part of his withdrawal is usually nausea/vomiting, which he had on this admission as well. He was treated with antiemetics, PPI. When he developed odynophagia from suspected esophagitis in setting of vomiting, we also added carafate. The patient is able to tolerate soft foods and is recommended to continue on PPI and carafate on discharge. Finally, when the patient first presented to [facility] this time, he was in Rapid Afib, but this converted to NSR in ED. He did not have any recurrences of Afib since. His echo reveals EF of 60-65%, mildly to moderately dilated ascending aorta, but no intracardiac thrombi. He is not on anticoagulation and is not being initiated on it on this admission due to his extremely high probability of recurrence of drinking and alcohol withdrawal seizures. He is medically stable for discharge today with CIWA scores of 0. He is sweating profusely - he states this is his normal. He is being referred to a homeless [facility]ci on discharge. A total of 45 minutes were spent on care for patient as well as preparation of his discharge summary on day of discharge. Home Meds and New Rx's Prescriptions: New sennosides [Senokot] 8.6 mg Tablet 1 tab PO BID Qty: 60 RF: 0 sucralfate 1 gram Tablet 1 g PO AC & HS Qty: 120 RF: 0 docusate sodium [Colace] 100 mg Capsule 100 mg PO BID Qty: 60 RF: 0 folic acid 1 mg Tablet 1 mg PO DAILY Qty: 30 RF: 0 alum-mag hydroxide-simeth [Mag-Al Plus] 200-200-20 mg/5 mL Suspension 30 ml PO Q2H PRN PRN (Reason: dyspepsia) Qty: 360 RF: 0 multivitamin [Multiple Vitamins] Tablet 1 tab PO DAILY Qty: 30 RF: 0 pantoprazole [Protonix] 40 mg tablet,delayed release (DR/EC) 40 mg PO DAILY Qty: 30 RF: 0 prochlorperazine maleate [Compazine] 5 mg tablet 5 mg PO Q6H PRN PRN (Reason: nausea and vomiting) Qty: 30 RF: 0 Continued thiamine mononitrate (vit B1) [Vitamin B-1 (mononitrate)] 100 MG tablet 100 mg PO DAILY Qty: 30 RF: 0 Changed acetaminophen [Mapap Extra Strength] 500 MG tablet 1,000 mg PO Q8H PRN PRN5 Days Qty: 60 RF: 0 Discontinued Ibuprofen [Motrin Ib] 200 MG tablet 600 mg PO Q6H 5 Days Qty: 60 RF: 0 Discharge Instructions Instructions: Pantoprazole (By mouth), Diet for Stomach Ulcers and Gastritis (GEN), Alcohol Withdrawal (DC), Esophagitis (DC) Additional Instructions: You must not drink alcohol. Return to the hospital with any fever, bleeding, chest pain, or shortness of breath. Referrals: Otilio Fox MD [Primary Care Provider] - Activity:: Activity as Tolerated Equipment/Supplies:: No Equipment Needed Diet:: soft bland diet Discharge Orders Discharge Orders: Discharge Order (Routine); Ordered 04/04/19 Ordered By: Brianna Canales Exam Narrative Exam Narrative: General: Disheveled middle-aged male, A&OX3, diaphoretic (states this is his baseline), engaged/alert, not tremulous HEENT: EOMI, MMM Heart: RRR, no m/r/g Lungs: CTAB GI: abdomen is soft, nontender, nondistended Extremities: no e/c/c BLE's DS: Data Vitals/I&O Vitals and I&O: Vital Signs Temperature 36.7 C 04/04/19 07:45 Temperature Source Tympanic 04/04/19 07:45 Pulse 89 04/04/19 07:45 Pulse Rhythm Regular 04/04/19 09:00 Pulse 77 04/02/19 15:30 Respiratory Rate 18 04/04/19 07:45 Respiratory Effort Non-Labored 04/04/19 09:00 Respiratory Depth Normal 04/04/19 09:00 Respiratory Pattern Normal 04/04/19 09:00 Blood Pressure 138/99 H 04/04/19 07:45 Blood Pressure Mean 117 04/02/19 15:10 Blood Pressure Position Supine 04/01/19 03:00 Pulse Oximetry 96 04/04/19 07:45 Oxygen Delivery Method Room Air 04/04/19 07:45 Oxygen Flow Rate 0 04/04/19 07:45 Pain Level 0 04/03/19 20:28 Comment 04/03/19 07:45 Intake & Output 04/03/19 04/04/19 04/04/19 23:59 11:59 23:59 Intake Total 760 / 760 Output Total 941 / 1541 600 / 600 Balance -941 / -701 160 / 160 Weight 103.7 kg Intake: Oral 760 / 760 Output: Urine 900 / 1500 600 / 600 Post Void Residual 41 / 41 Other: Urine Color Dark Makayla Urine Appearance Clear Clear Urine Odor None Comment patient state he is voiding without any difficulties Voiding Methods Urinal Urinal Completed studies during hospitalization [Text1]: CT head without contrast 03/30/19: Stable area of left frontal encephalomalacia. No acute abnormality. CT c-spine 03/30/19: Degenerative changes. No acute abnormality. facial CT 03/30/19: Mild chronic sinus disease. No acute abnormality. CXR 03/31/19: No acute abnormality. Echo 04/03/19: 1. Left ventricle: The cavity size was normal. Wall thickness was normal. Systolic function was normal. The estimated ejection fraction was 60-65%. Wall motion was normal; there were no regional wall motion abnormalities. 2. Aortic valve: Trileaflet; normal thickness leaflets. 3. Ascending aorta: The ascending aorta was mildly to moderately dilated. 4.0 cm. 4. Right ventricle: The cavity size was normal. Wall thickness was normal. Systolic function was normal. Labs on day of discharge: Preliminary micro results at discharge 03/30/19 23:25 Blood Culture - Preliminary Blood NO GROWTH 96 HOURS 03/30/19 22:20 Blood Culture - Preliminary Blood NO GROWTH 96 HOURS [facility] Medical History Alcohol abuse (Chronic) Alcoholic gastritis (Chronic) Alcoholic liver disease (Chronic) Anemia (Chronic) CTS (carpal tunnel syndrome) (Chronic) Cannabis abuse (Chronic) Cholelithiasis (Chronic) Continuous chronic alcoholism (Chronic) Essential hypertension (Chronic) History of atrial fibrillation (Chronic) Thrombocytopenia (Chronic) Alcohol withdrawal (Resolved) Atrial fibrillation with rapid ventricular response (Resolved) DTs (delirium tremens) (Resolved) Dehydration (Resolved) Diarrhea (Resolved) Diverticulitis (Resolved ~09/2017) Hematuria (Resolved) History of closed head injury (Resolved) Hypokalemia (Resolved) Hypomagnesemia (Resolved) Hypophosphatemia (Resolved) Surgical History H/O craniotomy (Resolved ~1983) S/P carpal tunnel release (Resolved ~03/2017) Social History Smoking/Tobacco Use Status: Never Alcohol Intake: current Alcohol Intake frequency: 3 or more drinks per day Alcohol type: hard liquor Drug use: Daily Substance use type: marijuana Housing: other Details: currently living in homeless [facility] in [place], [place] Do you feel safe at home: Yes Do you feel safe in your relationship?: Yes
--- NOTE | 2019-04-04 12:22 | DSE_ITS ---
Date of service: 04/04/19 Time of Service: 12:14 DS: Diagnosis Discharge Diagnosis (1) Alcohol withdrawal seizure: Status: Acute (2) Alcohol withdrawal: Status: Acute (3) Alcohol abuse: Status: Chronic (4) Paroxysmal A-fib: Status: Chronic (5) Hypokalemia: Status: Resolved (6) Ambulatory dysfunction: Status: Acute (7) Lactic acidosis: Status: Resolved (8) Alcoholic ketoacidosis: Status: Resolved (9) Closed head injury: Status: Resolved (10) Rhabdomyolysis: Status: Resolved (11) Vomiting: Status: Resolved (12) Odynophagia: Status: Resolved Discharge Plan Disposition Patient Disposition: OTHER Condition: Critical Discharge Details Reason For Visit: SEIZURES, ALCOHOL WITHDRAWAL, HYPOKALEMIA Admit Date/Time: 03/30/19 20:36 Admit Provider: Ruddy Mcnulty Attending Provider: Brianna Canales Primary Care Provider: Otilio Fox Hospital Course Hospital Course: Mr Pedraza is a homeless 58 year old male with PMHx of a TBI, alcohol abuse with prior history of withdrawal seizures, paroxismal Afib not on anticoagulation, alcoholic cirrhosis, admitted to [facility] ICU on 03/30/19 with alcohol withdrawal seizures. He had one event prior to coming to the hospital which involved a fall from a seated position with closed head injury as well as one seizure event in the ER. He did not have any alcohol withdrawal seizures in the ICU. He was treated with scheduled and prn benzodiazepines for his withdrawal. A large part of his withdrawal is usually nausea/vomiting, which he had on this admission as well. He was treated with antiemetics, PPI. When he developed odynophagia from suspected esophagitis in setting of vomiting, we also added carafate. The patient is able to tolerate soft foods and is recommended to continue on PPI and carafate on discharge. Finally, when the patient first presented to [facility] this time, he was in Rapid Afib, but this converted to NSR in ED. He did not have any recurrences of Afib since. His echo reveals EF of 60-65%, mildly to moderately dilated ascending aorta, but no intracardiac thrombi. He is not on anticoagulation and is not being initiated on it on this admission due to his extremely high probability of recurrence of drinking and alcohol withdrawal seizures. He is medically stable for discharge today with CIWA scores of 0. He is sweating profusely - he states this is his normal. He is being referred to a homeless [facility]ci on discharge. A total of 45 minutes were spent on care for patient as well as preparation of h is discharge summary on day of discharge. Home Meds and New Rx's Prescriptions: New sennosides [Senokot] 8.6 mg Tablet 1 tab PO BID Qty: 60 RF: 0 sucralfate 1 gram Tablet 1 g PO AC & HS Qty: 120 RF: 0 docusate sodium [Colace] 100 mg Capsule 100 mg PO BID Qty: 60 RF: 0 folic acid 1 mg Tablet 1 mg PO DAILY Qty: 30 RF: 0 alum-mag hydroxide-simeth [Mag-Al Plus] 200-200-20 mg/5 mL Suspension 30 ml PO Q2H PRN PRN (Reason: dyspepsia) Qty: 360 RF: 0 multivitamin [Multiple Vitamins] Tablet 1 tab PO DAILY Qty: 30 RF: 0 pantoprazole [Protonix] 40 mg tablet,delayed release (DR/EC) 40 mg PO DAILY Qty: 30 RF: 0 prochlorperazine maleate [Compazine] 5 mg tablet 5 mg PO Q6H PRN PRN (Reason: nausea and vomiting) Qty: 30 RF: 0 Continued thiamine mononitrate (vit B1) [Vitamin B-1 (mononitrate)] 100 MG tablet 100 mg PO DAILY Qty: 30 RF: 0 Changed acetaminophen [Mapap Extra Strength] 500 MG tablet 1,000 mg PO Q8H PRN PRN5 Days Qty: 60 RF: 0 Discontinued Ibuprofen [Motrin Ib] 200 MG tablet 600 mg PO Q6H 5 Days Qty: 60 RF: 0 Discharge Instructions Instructions: Pantoprazole (By mouth), Diet for Stomach Ulcers and Gastritis (GEN), Alcohol Withdrawal (DC), Esophagitis (DC) Additional Instructions: You must not drink alcohol. Return to the hospital with any fever, bleeding, chest pain, or shortness of breath. Referrals: Otilio Fox MD [Primary Care Provider] - Activity:: Activity as Tolerated Equipment/Supplies:: No Equipment Needed Diet:: soft bland diet Discharge Orders Discharge Orders: Discharge Order (Routine); Ordered 04/04/19 Ordered By: Brianna Canales Exam Narrative Exam Narrative: General: Disheveled middle-aged male, A&OX3, diaphoretic (states this is his baseline), engaged/alert, not tremulous HEENT: EOMI, MMM Heart: RRR, no m/r/g Lungs: CTAB GI: abdomen is soft, nontender, nondistended Extremities: no e/c/c BLE's DS: Data Vitals/I&O Vitals and I&O: Vital Signs Temperature 36.7 C 04/04/19 07:45 Temperature Source Tympanic 04/04/19 07:45 Pulse 89 04/04/19 07:45 Pulse Rhythm Regular 04/04/19 09:00 Pulse 77 04/02/19 15:30 Respiratory Rate 18 04/04/19 07:45 Respiratory Effort Non-Labored 04/04/19 09:00 Respiratory Depth Normal 04/04/19 09:00 Respiratory Pattern Normal 04/04/19 09:00 Blood Pressure 138/99 H 04/04/19 07:45 Blood Pressure Mean 117 04/02/19 15:10 Blood Pressure Position Supine 04/01/19 03:00 Pulse Oximetry 96 04/04/19 07:45 Oxygen Delivery Method Room Air 04/04/19 07:45 Oxygen Flow Rate 0 04/04/19 07:45 Pain Level 0 04/03/19 20:28 Comment 04/03/19 07:45 Intake & Output 04/03/19 04/04/19 04/04/19 23:59 11:59 23:59 Intake Total 760 / 760 Output Total 941 / 1541 600 / 600 Balance -941 / -701 160 / 160 Weight 103.7 kg Intake: Oral 760 / 760 Output: Urine 900 / 1500 600 / 600 Post Void Residual 41 / 41 Other: Urine Color Dark Makayla Urine Appearance Clear Clear Urine Odor None Comment patient state he is voiding without any difficulties Voiding Methods Urinal Urinal Completed studies during hospitalization [Text1]: CT head without contrast 03/30/19: Stable area of left frontal encephalomalacia. No acute abnormality. CT c-spine 03/30/19: Degenerative changes. No acute abnormality. facial CT 03/30/19: Mild chronic sinus disease. No acute abnormality. CXR 03/31/19: No acute abnormality. Echo 04/03/19: 1. Left ventricle: The cavity size was normal. Wall thickness was normal. Systolic function was normal. The estimated ejection fraction was 60-65%. Wall motion was normal; there were no regional wall motion abnormalities. 2. Aortic valve: Trileaflet; normal thickness leaflets. 3. Ascending aorta: The ascending aorta was mildly to moderately dilated. 4.0 cm. 4. Right ventricle: The cavity size was normal. Wall thickness was normal. Systolic function was normal. Labs on day of discharge: Preliminary micro results at discharge 03/30/19 23:25 Blood Culture - Preliminary Blood NO GROWTH 96 HOURS 03/30/19 22:20 Blood Culture - Preliminary Blood NO GROWTH 96 HOURS [facility] Medical History Alcohol abuse (Chronic) Alcoholic gastritis (Chronic) Alcoholic liver disease (Chronic) Anemia (Chronic) CTS (carpal tunnel syndrome) (Chronic) Cannabis abuse (Chronic) Cholelithiasis (Chronic) Continuous chronic alcoholism (Chronic) Essential hypertension (Chronic) History of atrial fibrillation (Chronic) Thrombocytopenia (Chronic) Alcohol withdrawal (Resolved) Atrial fibrillation with rapid ventricular response (Resolved) DTs (delirium tremens) (Resolved) Dehydration (Resolved) Diarrhea (Resolved) Diverticulitis (Resolved ~09/2017) Hematuria (Resolved) History of closed head injury (Resolved) Hypokalemia (Resolved) Hypomagnesemia (Resolved) Hypophosphatemia (Resolved) Surgical History H/O craniotomy (Resolved ~1983) S/P carpal tunnel release (Resolved ~03/2017) Social History Smoking/Tobacco Use Status: Never Alcohol Intake: current Alcohol Intake frequency: 3 or more drinks per day Alcohol type: hard liquor Drug use: Daily Substance use type: marijuana Housing: other Details: currently living in homeless fci in [place], [place] Do you feel safe at home: Yes Do you feel safe in your relationship?: Yes
[2019-04-04 15:54] VITALS: BP 127/88; PULSE 78; RESP 17; TEMP 37.1; O2SAT 97
--- NOTE | 2019-04-04 19:49 | PDOC.CMDIS ---
- If Service Date Differs Date of service: 04/04/19 Time of Service: 19:49 LACE Index Scoring Tool - Questions: Length of Stay (in days): 7 - 13 Acuity (Admit via E.D.?): Yes Comorbidities: Liver or Renal Disease E.D. Visits: 5 - Answers: Total Score: 17 Risk of Readmission: High Risk Care Management Discharge Reason for Hospitalization: Seizures, Alcohol withdrawal, hypokalemia Discharge Plan: Jemal has decided to return to his friends home on [address]. He did complete the application for [facility] which CM faxed they do not have any openings today he will be placed on the waiting list. CM contacted homeless shelters from [place] to [place] there are no openings, Jemal declines [facility] or [facility]. He does not want to go to residential facility. CM did attempt to contact Jemal's brother in [place] however his phone was not working. CM contacted [facility] connection and spoke with outreach for follow up housing and SSI. CM will fax a referral to [facility] as well and [facility]. Jemal would benefit from increase supports in the community and assitance with SSI application. CM will also fax request to [facility] at pcp office for close follow up. Tony will transport home via [facility] coordianted by CM at time of discharge. Patient/Family Education Needs: Discharge education, limitations and follow up plan of care including ask me three and self management. Services Needed at Discharge: Transportation
--- NOTE | 2019-04-04 20:00 | CMDISCH_ITS ---
- If Service Date Differs Date of service: 04/04/19 Time of Service: 19:49 LACE Index Scoring Tool - Questions: Length of Stay (in days): 7 - 13 Acuity (Admit via E.D.?): Yes Comorbidities: Liver or Renal Disease E.D. Visits: 5 - Answers: Total Score: 17 Risk of Readmission: High Risk Care Management Discharge Reason for Hospitalization: Seizures, Alcohol withdrawal, hypokalemia Discharge Plan: Jemal has decided to return to his friends home on [address]. He did complete the application for [facility] which CM faxed they do not have any openings today he will be placed on the waiting list. CM contacted homeless shelters from [place] to [place] there are no openings, Jemal declines [facility] or [facility] [facility]. He does not want to go to residential facility. CM did attempt to contact Jemal's brother in [place] however his phone was not working. CM contacted [facility] and spoke with outreach for follow up housing and SSI. CM will fax a referral to [facility] as well and [facility]. Jemal would benefit from increase supports in the community and assitance with SSI application. CM will also fax request to [facility] at pcp office for close follow up. Tony will transport home via [facility] coordianted by CM at time of discharge. Patient/Family Education Needs: Discharge education, limitations and follow up plan of care including ask me three and self management. Services Needed at Discharge: Transportation
== END 2019-04-04 16:40 | disposition other institution (70) | DRG 101 ==
LOC: ER 20:44 → ICU 22:41 → MS 04-04 12:22 → ICU 04-07 10:42
PROVIDERS: Emergency Medicine; Admitting Provider Family Medicine; Emergency Provider Student in an Organized Health Care Education/Training Program; PCP Internal Medicine; Visit Provider Internal Medicine
DX: R56.9 Unspecified convulsions (principal); E87.2 Acidosis; M62.82 Rhabdomyolysis; F10.231 Alcohol dependence with withdrawal delirium; E87.6 Hypokalemia; I48.0 Paroxysmal atrial fibrillation; R26.2 Difficulty in walking, not elsewhere classified; S09.93XA Unspecified injury of face, initial encounter; S01.552A Open bite of oral cavity, initial encounter; W07.XXXA Fall from chair, initial encounter; Z87.820 Personal history of traumatic brain injury; R11.2 Nausea with vomiting, unspecified; K20.8 Other esophagitis; Z59.0 Homelessness; E86.0 Dehydration; F17.210 Nicotine dependence, cigarettes, uncomplicated; R46.0 Very low level of personal hygiene; K70.30 Alcoholic cirrhosis of liver without ascites; R07.89 Other chest pain
CPT/HCPCS: 36415; 36569; 51702; 80048; 80053; 80307; 82550; 85027; 87040; 93306; 96361; 96365; 96366; 96375; 99223; 99232; 99239; 99291; 70450; 70486; 71045; 72125; 80320; 83605; 83735; 84443; 84484; 85025; 85610; 93005; 93010; J0780; J1644; J1953; J2060; J2405; J2765; J3360; J3480; L0172

== ENCOUNTER 2019-08-21 10:40 | Inpatient (IN) | payer SELFPAY ==
[2019-08-21] VITALS (71 sets, daily range): BP systolic 112–152; BP diastolic 77–96; PULSE 58–155; RESP 13–44; TEMP 36.6–36.9; O2SAT 92–99
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
[2019-08-21] MEDS: LORazepam 2 MG/ML VIAL 0.5 MG IVP (10:54)
[2019-08-21] MEDS: Normal Saline 1,000 ML 125 ML IV (10:55)
[2019-08-21] MEDS: Thiamine 200 MG/2 ML VIAL 100 MG IV (10:55)
[2019-08-21 11:14] LABS: Abs Immature Grans 0.06 k/cumm (0.0-0.09); Absolute Basophil Count 0.04 k/cumm (0.0-0.2); Absolute Eosinophil Count 0.06 k/cumm (0.0-0.7); Absolute Lymphocyte Count 1.64 k/cumm (1.2-3.4); Absolute Monocyte Count 0.36 k/cumm (0.11-0.7); Absolute Neutrophil Count 3.23 k/cumm (1.2-6.7); Basophils % 0.7; Eosinophils % 1.1; HCT 42.1 % (40.0-50.0); HGB 14.6 g/dL (13.5-17.5); Immature Grans % 1.1; Lymphocytes % 30.4; Mean Corp. HGB Concentration 34.7 g/dL (32.0-36.0); Mean Corpuscular Hemoglobin 32.4 pg (27.0-33.0); Mean Corpuscular Volume 93.3 fL (80-95); Mean Platelet Volume 9.9 fL (8.0-11.0); Monocytes % 6.7; Platelet Count 163 x1000/uL (130-400); RBC 4.51 m/cumm (4.50-6.00); RBC Distribution Width 12.7 % (11.8-14.1); White Blood Cell Count 5.39 k/cumm (4.4-10.8)
--- NOTE | 2019-08-21 11:15 | DI.CT_ITS ---
EXAM: CT HEAD CERVICAL SPINE WO CLINICAL HISTORY: fall, seizure, altered TECHNIQUE: CT examination of the cervical spine was performed with multi slice acquisition and multi planar reconstruction. Noncontrast cranial CT was performed. COMPARISON: CT HEAD CERV SPINE FACIAL WO from 03/30/2019 FINDINGS: The visualized lung apices appear clear. Tracheolaryngeal structures appear intact. There are severe degenerative changes of mid cervical spine with a mild cervical kyphosis. No acute fracture or facet dislocation seen. Note is made of left frontal encephalomalacia and craniotomy. No evidence of acute intracranial hemo rrhage, mass effect or midline shift. No acute calvarial fracture. Mild mucoperiosteal thickening o f the maxillary antra noted. Otherwise the paranasal sinuses and mastoid air cells appear fairly wel l aerated. The orbital and temporal bone structures appear intact. IMPRESSION: No evidence of acute cervical fracture or dislocation. Severe cervical DJD noted. No evidence of acute intracranial process.
[2019-08-21 11:31] LABS: ALT 29 U/L (16-63); AST 24 U/L (15-37); Albumin 3.8 g/dL (3.4-5.0); Alkaline Phosphatase 67 U/L (46-116); Anion Gap 17.6 mmol/L (3-11); BUN 9 mg/dL (7-18); Bilirubin, Total 0.4 mg/dL (0.2-1.0); CO2 20.4 mmol/L (21.0-32.0); CREATININE 0.83 mg/dL (0.70-1.30); Calcium 8.9 mg/dL (8.5-10.1); Chloride 106 mmol/L (98-107); ETHANOL BLOOD 12.7 mg/dL (<3); Glucose 108 mg/dL (70-100); Magnesium 1.5 mg/dL (1.8-2.4); Potassium 3.7 mmol/L (3.5-5.1); Sodium 144 mmol/L (136-145); Total Protein 7.2 g/dL (6.4-8.2); Troponin I < 0.05 ng/mL (0.00-0.06)
[2019-08-21] MEDS: dilTIAZem 25 MG/5 ML VIAL 15 MG IVP (11:50)
[2019-08-21 11:51] LABS: TSH (W/Ref FT4) 0.92 uIU/mL (0.36-3.74)
[2019-08-21] MEDS: MAGNESIUM SULFATE 1 GM/100 ML BAG IVPB (12:04)
--- NOTE | 2019-08-21 12:21 | NUR.NOTE ---
Nursing Note: provided pt with lunch tray.
[2019-08-21 12:37] LABS: *AMPHETAMINES SCREEN URINE Negative (Negative); *BARBITURATES SCREEN URINE Negative (Negative); *BENZODIAZEPINES SCREEN URINE Negative (Negative); Cannabinoids THC POSITIVE (Negative); Cocaine Screen,Urine Negative (Negative); METHADONE URINE SCREEN Negative (Negative); OPIATES URINE SCREEN Negative (Negative)
[2019-08-21 12:40] LABS: Tricyclic Antidepressants Negative (Negative)
--- NOTE | 2019-08-21 12:46 | NUR.NOTE ---
Nursing Note: pt at about 25% of his lunch states his tongue hurts too much to eat. pt noted to be in NSR- EKG obtained.
--- NOTE | 2019-08-21 13:01 | NUR.NOTE ---
Nursing Note: up to bathroom independently with steady gait. INTERVENTION TEACHER 1:1 for pt safety while up at this time. CTM.
--- NOTE | 2019-08-21 13:02 | NUR.NOTE ---
Nursing Note: still awaiting for room to be cleaned upstairs
[2019-08-21 13:10] LABS: Bilirubin Negative (Negative); Blood Trace-lysed (Negative); Clarity Clear (Clear); Glucose Negative (Negative); Ketones Trace mg/dL (Negative); Leukocyte Esterase Negative (Negative); Nitrite Negative (Negative); Urobilinogen 0.2 EU/dL (Up TO 0.2)
[2019-08-21] MEDS: MULTIVITAMIN 10 ML, THIAMINE 100 MG, FOLIC ACID 1 MG in DEXTROSE 5%-0.45% SALINE 1,000 ML 150 ML IV (13:10)
[2019-08-21 13:22] LABS: Bacteria Rare HPF (Negative); C & S Indicated? No; Casts Negative LPF (Negative); Crystals Negative HPF (Negative); Epithelial Cells Negative HPF (Negative); Mucus Trace (Negative); RBC Negative (0-2); WBC 0-2 HPF (0-5)
--- NOTE | 2019-08-21 13:25 | DI.RAD_ITS ---
EXAM: XR PORTABLE CHEST AP XR PORTABLE CHEST AP CLINICAL HISTORY: rule out aspiration pneumonia. rule out aspiration pneumonia TECHNIQUE: 2D digital imaging was performed. COMPARISON: XR PORTABLE CHEST AP from 03/31/2019 FINDINGS: LUNGS: Clear. No pleural abnormality seen. HEART: Normal. MEDIASTINUM: Normal. OTHER FINDINGS: None. IMPRESSION: No acute pulmonary findings.
[2019-08-21 13:45] LABS: Creatine Kinase 183 U/L (39-308)
[2019-08-21 14:12] LABS: Lactate 1.1 mmol/L (0.6-1.4)
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
[2019-08-21 14:35] LABS: Troponin I < 0.05 ng/mL (0.00-0.06)
[2019-08-21] MEDS: Heparin 5,000 UNITS/ML VIAL 5000 UNITS SC (16:22)
[2019-08-21] MEDS: MAGNESIUM SULFATE 2 GM/50 ML BAG IVPB (16:22)
--- NOTE | 2019-08-21 16:38 | DI.US_ITS ---
EXAM: US LOWER EXTREMITY VENOUS LT CLINICAL HISTORY: suspected DVT,LT CALF PAIN TECHNIQUE: Ultrasound performed using standard protocol. COMPARISON: No exams were available for comparison FINDINGS: No saphenous thrombosis is seen. A Yuan's cyst is seen measuring 5 x 1.9 x 3.0 cm. One of the post erior tibial veins shows occlusive thrombus. The other posterior tibial vein is free of thrombus. T he common femoral, superficial femoral and popliteal veins are free of thrombus. IMPRESSION: Posterior tibial vein thrombosis. Yuan's cyst.
--- NOTE | 2019-08-21 16:48 | DI.VRAD_ITS ---
PROCEDURE INFORMATION: Exam: US Duplex Left Lower Extremity Veins, Limited Exam date and time: 08/21/2019 4:35 PM Clinical history: 59 years old, male; Other: Left calf pain TECHNIQUE: Imaging protocol: Real-time Duplex ultrasound of the Left Lower Extremity with 2-D prater scale, color Doppler flow and spectral waveform analysis with image documentation. Limited exam focused on the left lower extremity veins. COMPARISON: No relevant prior studies available. FINDINGS: Left deep veins: The common femoral, femoral, proximal profunda femoral and popliteal veins are patent without thrombus. Normal Doppler waveforms. Normal compressibility and/or augmentation response. Occlusive thrombus within one of the left posterior tibial veins. Left superficial veins: Unremarkable. Saphenofemoral junction is patent without thrombus. Soft tissues: 3.0 cm x 5.0 cm x 1.9 cm popliteal cyst. IMPRESSION: 1. Occlusive DVT within one of the left posterior tibial veins of the calf. 2. Popliteal cyst. Please note that this is a preliminary report. The separate, final report is to follow. Dictated and Authenticated by: Rocio Partida MD. Ordering:BULMARO Reed MD
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
[2019-08-21 18:53] LABS: Troponin I < 0.05 ng/mL (0.00-0.06)
[2019-08-22] VITALS (59 sets, daily range): BP systolic 93–158; BP diastolic 37–124; PULSE 52–134; RESP 0–30; TEMP 36.3–36.8; O2SAT 93–99
[2019-08-22] MEDS: Heparin 5,000 UNITS/ML VIAL 5000 UNITS SC ×4 (01:24→23:07)
[2019-08-22 07:24] LABS: Lactate 0.8 mmol/L (0.6-1.4)
[2019-08-22 07:30] LABS: Abs Immature Grans 0.01 k/cumm (0.0-0.09); Absolute Basophil Count 0.03 k/cumm (0.0-0.2); Absolute Eosinophil Count 0.02 k/cumm (0.0-0.7); Absolute Lymphocyte Count 1.64 k/cumm (1.2-3.4); Absolute Monocyte Count 0.61 k/cumm (0.11-0.7); Absolute Neutrophil Count 5.18 k/cumm (1.2-6.7); Basophils % 0.4; Eosinophils % 0.3; HGB 15.3 g/dL (13.5-17.5); Immature Grans % 0.1; Lymphocytes % 21.9; Mean Corp. HGB Concentration 35.6 g/dL (32.0-36.0); Mean Corpuscular Hemoglobin 32.3 pg (27.0-33.0); Mean Corpuscular Volume 90.9 fL (80-95); Mean Platelet Volume 10.2 fL (8.0-11.0); Monocytes % 8.1; Neutrophils % 69.2; Platelet Count 170 x1000/uL (130-400); RBC 4.73 m/cumm (4.50-6.00); RBC Distribution Width 12.3 % (11.8-14.1); White Blood Cell Count 7.49 k/cumm (4.4-10.8)
[2019-08-22 08:06] LABS: ALT 29 U/L (16-63); AST 30 U/L (15-37); Albumin 3.5 g/dL (3.4-5.0); Alkaline Phosphatase 70 U/L (46-116); Anion Gap 11.5 mmol/L (3-11); BUN 5 mg/dL (7-18); Bilirubin, Direct 0.24 mg/dL (0.00-0.20); CO2 24.5 mmol/L (21.0-32.0); CREATININE 0.67 mg/dL (0.70-1.30); Calcium 8.5 mg/dL (8.5-10.1); Chloride 102 mmol/L (98-107); Creatine Kinase 349 U/L (39-308); Glucose 106 mg/dL (70-100); Magnesium 1.9 mg/dL (1.8-2.4); Potassium 3.4 mmol/L (3.5-5.1); Sodium 138 mmol/L (136-145); Total Protein 7.2 g/dL (6.4-8.2)
[2019-08-22 08:22] LABS: Calculated LDL 94 mg/dL; Cholesterol 169 mg/dL (50-200); HDL Cholesterol 59 mg/dL (40-60); Triglyceride 81 mg/dL (30-150)
--- NOTE | 2019-08-22 08:29 | W.PM.PROGNOT ---
Date of Service Date of service: 08/22/19 Time of Service: 15:19 Assessment and Plan Assessment and plan (1) Alcohol withdrawal seizure: Status: Acute Assessment and plan: No recurrences so far. Continue to monitor in ICU on CIWA. (2) Alcohol withdrawal: Status: Acute Assessment and plan: As above; continue banana bag, CIWA. Care management is getting a disaster recovery consultant involved. (3) DVT, lower extremity, distal, acute: Status: Acute Assessment and plan: L posterior tibial DVT, present on admission. The fact that the DVT is in a distal vein and popliteal vein is not involved is reassuring. Given his relatively high risk of falling/bleeding/having another seizure, risks of anticoagulation outweigh benefits. Will need a venous doppler in 1-2 weeks to assess progression. No TEDs or SCDs. (4) Open wound of tongue due to bite: Status: Acute Assessment and plan: Pain improving; tongue is less edematous today, able to swallow. Continue magic mouthwash, monitor for worsening swelling/difficulty with swallowing. Advanced diet to soft/bite sized/thin. (5) Odynophagia: Status: Acute Assessment and plan: Due to the tongue bite - provide magic mouth wash; there may also be a component of esophagitis - add PPI. (6) Paroxysmal A-fib: Status: Chronic Assessment and plan: in NSR - Patient is unlikely to be compliant. (7) Closed head injury: Status: Resolved Assessment and plan: Monitor mental status in ICU. (8) Lactic acidosis: Status: Resolved Assessment and plan: Resolved (9) Hypomagnesemia: Status: Resolved Assessment and plan: Recheck in am (10) DVT prophylaxis: Status: Acute Assessment and plan: Heparin SC Does have a DVT In L distal tibial vein - risks of full anticoagulation outweigh benefits (11) Discharge planning issues: Status: Acute Assessment and plan: Full code. Keep in ICU overnight - likely ok to transfer out of ICU and possibly even discharge home tomorrow if no more events Subjective Subjective Interval history since last seen: No seizures overnight, CIWA scores 1 and 2. Denies dizziness, headache, complains of neck pain - thinks he banged it yesterday. States his tongue is sore, but he has been able to eat soft food and drink without problems. Denies chest pain, shortness of breath. Had nausea this morning, but not now. Describes reflux. Oriented. No tremor. No recurrences of Afib. Couch surfs at home. Unsure about his plan on discharge (substance abuse rehab vs not). Exam Narrative Exam Narrative: General: Very pleasant and cooperative unkempt middle-aged male, A&Ox3, not tremulous, looks great HEENT: Atraumatic, normocephalic, EOMI, MMM Cardiovascular: RRR, no m/r/g Lungs: CTAB Gastrointestinal: abdomen is soft, nontender, nondistended Extremities: 1+ LLE edema; trace+ RLE edema, no c/c. Objective Objective Clinical Data: Abnormal lab results 08/21/19 08/21/19 08/21/19 Range/Units 11:03 12:19 12:19 Potassium (3.5-5.1) mmol/L Carbon Dioxide 20.4 L (21.0-32.0) mmol/L Anion Gap 17.6 H (3-11) mmol/L BUN (7-18) mg/dL Creatinine (0.70-1.30) mg/dL Glucose 108 H (70-100) mg/dL Magnesium 1.5 L (1.8-2.4) mg/dL Conjugated Bilirubin (0.00-0.20) mg/dL Creatine Kinase (39-308) U/L Urine Protein 30 H (Negative) mg/dL Urine Ketones Trace H (Negative) mg/dL Urine Blood Trace-lysed H (Negative) Ur THC Screen Positive A (Negative) 08/22/19 Range/Units 07:17 Potassium 3.4 L (3.5-5.1) mmol/L Carbon Dioxide (21.0-32.0) mmol/L Anion Gap 11.5 H (3-11) mmol/L BUN 5 L (7-18) mg/dL Creatinine 0.67 L (0.70-1.30) mg/dL Glucose 106 H (70-100) mg/dL Magnesium (1.8-2.4) mg/dL Conjugated Bilirubin 0.24 H (0.00-0.20) mg/dL Creatine Kinase 349 H (39-308) U/L Urine Protein (Negative) mg/dL Urine Ketones (Negative) mg/dL Urine Blood (Negative) Ur THC Screen (Negative) Vital Signs Temperature 36.7 C 08/22/19 08:00 Temperature Source Temporal Artery Scan 08/22/19 08:00 Pulse 61 08/22/19 08:00 Pulse 68 08/21/19 18:16 Respiratory Rate 19 08/22/19 08:00 Respiratory Effort Non-Labored 08/22/19 08:00 Respiratory Depth Normal 08/22/19 08:00 Respiratory Pattern Normal 08/22/19 08:00 Blood Pressure 139/85 08/22/19 08:00 Blood Pressure Mean 103 08/22/19 08:00 Blood Pressure Position Supine 08/22/19 08:00 Pulse Oximetry 98 08/22/19 08:00 Oxygen Delivery Method Room Air 08/22/19 08:00 Oxygen Flow Rate 0 08/22/19 08:00 Pain Level 0 08/22/19 08:00 Intake & Output 08/21/19 08/21/19 08/22/19 11:59 23:59 11:59 Intake Total 470 / 470 0 / 0 Output Total 1550 / 1550 Balance -1080 / -1080 0 / 0 Weight 108 kg 108 kg 109.6 kg Intake: IV 0 / 0 0 / 0 Oral 470 / 470 Output: Urine 1550 / 1550 Other: Urine Color Dark Makayla Urine Appearance Clear Urine Odor None Laboratory Results WBC 7.49 k/cumm (4.4-10.8) D 08/22/19 07:17 RBC 4.73 m/cumm (4.50-6.00) 08/22/19 07:17 Hgb 15.3 g/dL (13.5-17.5) 08/22/19 07:17 Hct 43.0 % (40.0-50.0) 08/22/19 07:17 MCV 90.9 fL (80-95) 08/22/19 07:17 MCH 32.3 pg (27.0-33.0) 08/22/19 07:17 MCHC 35.6 g/dL (32.0-36.0) 08/22/19 07:17 RDW 12.3 % (11.8-14.1) 08/22/19 07:17 Plt Count 170 x1000/uL (130-400) 08/22/19 07:17 MPV 10.2 fL (8.0-11.0) 08/22/19 07:17 Immature Gran % 0.1 11/08/19 07:17 Neutrophils % 69.2 08/22/19 07:17 Lymphocytes % 21.9 08/22/19 07:17 Monocytes % 8.1 08/22/19 07:17 Eosinophils % 0.3 08/22/19 07:17 Basophils % 0.4 08/22/19 07:17 Absolute Neutrophils 5.18 k/cumm (1.2-6.7) 08/22/19 07:17 Absolute Lymphocytes 1.64 k/cumm (1.2-3.4) 08/22/19 07:17 Absolute Monocytes 0.61 k/cumm (0.11-0.7) 08/22/19 07:17 Absolute Eosinophils 0.02 k/cumm (0.0-0.7) 08/22/19 07:17 Absolute Basophils 0.03 k/cumm (0.0-0.2) 08/22/19 07:17 Sodium 138 mmol/L (136-145) 08/22/19 07:17 Potassium 3.4 mmol/L (3.5-5.1) L 08/22/19 07:17 Chloride 102 mmol/L (98-107) 08/22/19 07:17 Carbon Dioxide 24.5 mmol/L (21.0-32.0) 08/22/19 07:17 Anion Gap 11.5 mmol/L (3-11) H 08/22/19 07:17 BUN 5 mg/dL (7-18) L 08/22/19 07:17 Creatinine 0.67 mg/dL (0.70-1.30) L 08/22/19 07:17 Estimated GFR/1.73 m2 >= 60.00 (mL/min/1.73m2) 08/22/19 07:17 Glucose 106 mg/dL (70-100) H 08/22/19 07:17 Lactate 0.8 mmol/L (0.6-1.4) 08/22/19 07:17 Calcium 8.5 mg/dL (8.5-10.1) 08/22/19 07:17 Magnesium 1.9 mg/dL (1.8-2.4) 08/22/19 07:17 Total Bilirubin 1.0 mg/dL (0.2-1.0) 08/22/19 07:17 Conjugated Bilirubin 0.24 mg/dL (0.00-0.20) H 08/22/19 07:17 AST 30 U/L (15-37) 08/22/19 07:17 ALT 29 U/L (16-63) 08/22/19 07:17 Alkaline Phosphatase 70 U/L (46-116) 08/22/19 07:17 Creatine Kinase 349 U/L (39-308) H 08/22/19 07:17 Troponin I < 0.05 ng/mL (0.00-0.06) 08/21/19 18:25 Total Protein 7.2 g/dL (6.4-8.2) 08/22/19 07:17 Albumin 3.5 g/dL (3.4-5.0) 08/22/19 07:17 Triglycerides 81 mg/dL (30-150) 08/22/19 07:17 Total Cholesterol 169 mg/dL (50-200) 08/22/19 07:17 LDL Cholesterol, Calc 94 mg/dL 08/22/19 07:17 HDL Cholesterol 59 mg/dL (40-60) 08/22/19 07:17 TSH 0.92 uIU/mL (0.36-3.74) 08/21/19 11:03 Urine Color Yellow (Yellow) 08/21/19 12:19 Urine Clarity Clear (Clear) 08/21/19 12:19 Urine pH 7.0 (5-8) 08/21/19 12:19 Ur Specific [place] 1.020 (1.005-1.025) 08/21/19 12:19 Urine Protein 30 mg/dL (Negative) H 08/21/19 12:19 Urine Ketones Trace mg/dL (Negative) H 08/21/19 12:19 Urine Blood Trace-lysed (Negative) H 08/21/19 12:19 Urine Nitrite Negative (Negative) 08/21/19 12:19 Urine Bilirubin Negative (Negative) 08/21/19 12:19 Urine Urobilinogen 0.2 EU/dL (Up TO 0.2) 08/21/19 12:19 Ur Leukocyte Esterase Negative (Negative) 08/21/19 12:19 Urine RBC Negative (0-2) 08/21/19 12:19 Urine WBC 0-2 HPF (0-5) 08/21/19 12:19 Ur Epithelial Cells Negative HPF (Negative) 08/21/19 12:19 Urine Crystals Negative HPF (Negative) 08/21/19 12:19 Urine Bacteria Rare HPF (Negative) 08/21/19 12:19 Urine Casts Negative LPF (Negative) 08/21/19 12:19 Urine Mucus Trace (Negative) 08/21/19 12:19 Ur Culture Indicated? No 08/21/19 12:19 Urine Glucose Negative mg/dL (Negative) 08/21/19 12:19 Urine Opiates Screen Negative (Negative) 08/21/19 12:19 Urine Methadone Screen Negative (Negative) 08/21/19 12:19 Ur Barbiturates Screen Negative (Negative) 08/21/19 12:19 Ur Tricyclics Screen Negative (Negative) 08/21/19 12:19 Ur Amphetamines Screen Negative (Negative) 08/21/19 12:19 U Benzodiazepines Scrn Negative (Negative) 08/21/19 12:19 Urine Cocaine Screen Negative (Negative) 08/21/19 12:19 Ur THC Screen Positive (Negative) A 08/21/19 12:19 Ethyl Alcohol 12.7 mg/dL (<3) 08/21/19 11:03 US venous LLE: Posterior tibial vein thrombosis. Yuan's cyst.
[2019-08-22 08:32] LABS: Folate 15.3 ng/mL (8.6-20.0); Vitamin B12 400 pg/mL (193-986)
[2019-08-22] MEDS: LORazepam 1 MG TAB PO/SL ×4 (09:24→23:07)
[2019-08-22] MEDS: Acetaminophen 325 MG TAB PO ×2 (09:26→18:00)
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
[2019-08-22] MEDS: MULTIVITAMIN 10 ML, THIAMINE 100 MG, FOLIC ACID 1 MG in DEXTROSE 5%-0.45% SALINE 1,000 ML 167 ML IV (09:54)
[2019-08-22] MEDS: Potassium Chloride 10 MEQ CAPCR 40 MEQ PO (09:59)
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
--- NOTE | 2019-08-22 11:44 | PHARADMIT ---
Addendum entered by Jameson Viera III 08/23/19 10:46: Pharmacy Note Subjective CIWA score 19, required Haldol overnight Objective No VS recorded, lab pending Wgt-110.1 kg No BM yet Assessment Banana bag dc'd switched to PO MD states patient is not candidate for anticoagulation due to risk of faling/bleeding or seizure. Plan Discharge plan is nebulus as pattient couch surfs Original Note: Admission Pharmacy Clinical Review alcohol withdrawal seizure, alcohol withdrawal Code Status Full Code Current Weight 109.6 kg Renally Cleared and Narrow Therapeutic Index Meds Crcl ~117 mL/min current meds okay QTc Value / Action Taken QTc 460 BP Control, Fever BP 139/85 afebrile Electrolytes reviewed K+ 3.4 DVT Prophylaxis heparin Opiate Usage / Scheduled Bowel Regimen Ordered no/prn Plt/SCr for Heparin / Enoxaparin plt 170 SCr 0.67 INR for Warfarin n/a H/H stable, WBC/Bands h/h 15.3/43.0 WBC 7.49 Antibiotic appropriateness none Cultures and Sensitivities none Surgical ABX d/c within 24 hr n/a DM control / Insulin Dosing BG 106 none Heart Failure (Check EF%) (MENDY's, B-Block, Diuretics) none IV to PO Switch n/a Home Meds Reviewed no known home meds Home Meds Not Ordered no known home meds Comments CIWA-3
--- NOTE | 2019-08-22 14:17 | NUR.NOTE ---
In to assess IV running in RAC. IV infiltrate noted Banana Bag stopped site assessed +2 edema noted in the right arm, no areas of induration noted skin cool to the touch, distal pulses present., pt offered mild complaints of discomfort,declined prns at this time, Hospitalist made aware.
[2019-08-22] MEDS: Cyanocobalamin 1000 MCG/ML VIAL IM/SC (14:30)
--- NOTE | 2019-08-22 15:57 | CMPROGNOTE_ITS ---
- If Service Date Differs Date of service: 08/22/19 Time of Service: 15:57 Care Management Progress Note S/O: Otilio was lying in bed when CM met with him. He was pleasant and engaged in conversation, although his speech was at times difficult to understand. Otilio reported that, per MD, he has a blood clot in his left lower leg. He stated that he knows that he needs to stop drinking, but he is the biggest drunk in town. CM asked if he would be interested in meeting with a organ recovery coordinator, which he stated he is agreeable to. CM called the organ recovery coordinator aviation warfare systems operator, Aster Caro, who will meet with him today. CM will continue to follow. A: Otilio is a 59 year old male admitted to [facility] on 08/21/2019 with alcohol withdrawal and alcohol withdrawal seizure. P: Otilio remains in the ICU and ICU level of care, being closely monitored and treated for withdrawal per protocol. Anticipate Otilio will return home when medically cleared, with the support of a organ recovery coordinator, coordinated by CM. Anticipate he will be driven home by private vehicle by a friend, or [facility]. CM will continue to follow and support coordination of discharge plan.
[2019-08-22] MEDS: Normal Saline 1,000 ML 150 ML IV (16:39)
[2019-08-22] MEDS: Normal Saline Flush 10 ML SYR IVP ×2 (16:39→21:16)
[2019-08-22] MEDS: Pantoprazole 40 MG TABCR PO (17:07)
[2019-08-22] MEDS: Lidocaine 5% Patch 1 PATCH TP (18:01)
[2019-08-23] VITALS (40 sets, daily range): BP systolic 89–184; BP diastolic 68–159; PULSE 0–102; RESP 15–47; TEMP 36.6–36.9; O2SAT 95–97
[2019-08-23] MEDS: LORazepam 2 MG/ML VIAL IVP (02:01)
[2019-08-23] MEDS: Normal Saline Flush 10 ML SYR IVP (02:42)
[2019-08-23] MEDS: LORazepam 1 MG TAB PO/SL ×3 (02:55→18:36)
[2019-08-23] MEDS: LORazepam 2 MG/ML VIAL IM ×2 (03:44→07:28)
--- NOTE | 2019-08-23 03:58 | NUR.NOTE ---
Pt has been increasingly showing signs of withdrawl since 2299. Multiple IVs have been attempted and placed, but the pt rips them out quite quickly after placement. Ativan PO and one IVP doses had been given up to 299, pt still trying to climb out of bed consistently. 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 I observed the pt moving his hands and fingers around in the air as if he had something on his fingers, also seemed to be talking to someone. Called Dr. Chance and obtained an order for ativan IM. Gave one dose of 4mg IM for a CIWA of 20+ and pt is still moving around quite a lot in bed, attempting to climb out, throwing pillows and pulling at sheets and blankets. He has an [employer] sitting with him at this time. He will not keep cardiac monitoring leads on, he will not allow SPO2 or BP cuff to be placed or remain on his body. Nursing Note:
[2019-08-23] MEDS: diphenhydrAMINE 50 MG/ML VIAL IM (05:13)
[2019-08-23] MEDS: Haloperidol 5 MG/ML VIAL IM (05:14)
--- NOTE | 2019-08-23 05:16 | NUR.NOTE ---
around 0400 pt started escalating in behavior, standing very unsteadily on his bed, yelling and shouting. He kicked me, he was not redirectable for a short amount of time. Once more staff arrived to assist he did lay back down in the bed. I was able to get some orders from Dr. Chance for haldol and benadryl which I gave, with good results. Nursing Note:
[2019-08-23] MEDS: Lidocaine Patch Removal 1 EACH TD (06:57)
[2019-08-23] MEDS: Heparin 5,000 UNITS/ML VIAL 5000 UNITS SC ×2 (07:48→16:36)
--- NOTE | 2019-08-23 08:01 | NUR.NOTE ---
0728: Ativan 3mg IM given in left buttucks for severe agitation. 4 RNs required to hold patient safely in the bed and 4 RNs needed to safely give this Ativan. Pt on hands and knees in the bed attempting to grab onto the metal bars of the [facility] nurse and exit the bed. Pt hit his head on the bar of the [facility] nurse due to his uncoordinated and agitated movements. Nurse Legal Collector notified of situation. Nurse supervisors Daryl Valencia and Brayan Burnette arrived to room.
--- NOTE | 2019-08-23 08:09 | NUR.NOTE ---
0810: Pt achieved some relief with Ativan that was given at 0728. Pt still having intermittent episodes of getting up on hands and knees in the bed, stating he wants to get up. Able to verbally redirect pt to stay in bed Pt is not safe to get up out of bed at this time
[2019-08-23] MEDS: Normal Saline 1,000 ML 150 ML IV ×2 (09:59→23:51)
[2019-08-23] MEDS: Thiamine 100 MG TAB PO (10:29)
[2019-08-23] MEDS: Folic Acid 1 MG TAB PO (10:29)
[2019-08-23] MEDS: Multivitamin TAB 1 TAB PO (10:30)
[2019-08-23] MEDS: Pantoprazole 40 MG TABCR PO (10:31)
--- NOTE | 2019-08-23 11:07 | PT.INTREAT ---
Date of service: 08/23/19 Time of Service: 11:07 PT Notes Inpatient Physical Therapy Treatment Note [facility] Date: 08/23/19 PRECAUTIONS: Fall, Seizure SUBJECTIVE: Jemal is unable to communicate this morning, making only groaning noises. OBJECTIVE: PAIN: No c/o pain BED MOBILITY/TRANSFERS: Patient completed bridging exercise x5 with Max cueing to scoot up in bed with CGA x2. Rolling L/R: Max A x2 to L/R Supine-sit: Unable Sit-supine: Unable GAIT: Unable ASSESSMENT: Patient was unable to participate further in PT session. He was able to perform bed mobility with max cueing and CGA x2 - Max A x2. PLAN: Continue with PT's POC when appropriate. TREATMENT CODE/TIME: 10 minutes; 59160
[2019-08-23 11:27] LABS: Abs Immature Grans 0.01 k/cumm (0.0-0.09); Absolute Basophil Count 0.02 k/cumm (0.0-0.2); Absolute Eosinophil Count 0.05 k/cumm (0.0-0.7); Absolute Lymphocyte Count 1.71 k/cumm (1.2-3.4); Absolute Monocyte Count 0.77 k/cumm (0.11-0.7); Basophils % 0.3; Eosinophils % 0.7; HCT 43.5 % (40.0-50.0); HGB 15.4 g/dL (13.5-17.5); Immature Grans % 0.1; Lymphocytes % 24.9; Mean Corp. HGB Concentration 35.4 g/dL (32.0-36.0); Mean Corpuscular Hemoglobin 32.2 pg (27.0-33.0); Mean Platelet Volume 10.2 fL (8.0-11.0); Monocytes % 11.2; Neutrophils % 62.8; Platelet Count 155 x1000/uL (130-400); RBC 4.78 m/cumm (4.50-6.00); RBC Distribution Width 12.5 % (11.8-14.1); White Blood Cell Count 6.86 k/cumm (4.4-10.8)
[2019-08-23 12:00] LABS: Anion Gap 10.4 mmol/L (3-11); BUN 8 mg/dL (7-18); CO2 24.6 mmol/L (21.0-32.0); Calcium 9.1 mg/dL (8.5-10.1); Chloride 106 mmol/L (98-107); Glucose 89 mg/dL (70-100); Magnesium 1.9 mg/dL (1.8-2.4); Sodium 141 mmol/L (136-145)
[2019-08-23] MEDS: Magnesium Oxide 400 MG TAB PO (14:02)
[2019-08-23] MEDS: chlordiazePOXIDE 25 MG CAP 50 MG PO ×2 (14:02→19:18)
--- NOTE | 2019-08-23 14:14 | CMPROGNOTE_ITS ---
Care Management Progress Note S/O: Otilio was resting. Still actively withdrawing from alcohol. Dis not engage in conversation at this time. A: 59 y.o. male admitted for Alcohol withdrawal and seizure activity. Remains at ICU Level of care today. P: Otilio will return home when medically cleared for discharge. He does have a assistant football coach in the community who will continue to follow him.
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
[2019-08-23] MEDS: Lidocaine 5% Patch 1 PATCH TP (18:12)
[2019-08-23] MEDS: LORazepam 2 MG/ML VIAL 1 MG IVP (23:11)
[2019-08-24] VITALS (21 sets, daily range): BP systolic 123–162; BP diastolic 76–106; PULSE 0–81; RESP 16–29; TEMP 36.5–36.9; O2SAT 95–98
[2019-08-24] MEDS: LORazepam 2 MG/ML VIAL 1 MG IVP ×2 (01:37→06:16)
[2019-08-24] MEDS: Lidocaine Patch Removal 1 EACH TD (06:17)
[2019-08-24 06:55] LABS: Abs Immature Grans 0.02 k/cumm (0.0-0.09); Absolute Basophil Count 0.01 k/cumm (0.0-0.2); Absolute Eosinophil Count 0.05 k/cumm (0.0-0.7); Absolute Lymphocyte Count 1.88 k/cumm (1.2-3.4); Absolute Monocyte Count 0.67 k/cumm (0.11-0.7); Absolute Neutrophil Count 4.04 k/cumm (1.2-6.7); Basophils % 0.1; Eosinophils % 0.7; HCT 43.1 % (40.0-50.0); HGB 15.2 g/dL (13.5-17.5); Immature Grans % 0.3; Lymphocytes % 28.2; Mean Corp. HGB Concentration 35.3 g/dL (32.0-36.0); Mean Corpuscular Hemoglobin 32.1 pg (27.0-33.0); Mean Corpuscular Volume 90.9 fL (80-95); Neutrophils % 60.7; Platelet Count 152 x1000/uL (130-400); RBC 4.74 m/cumm (4.50-6.00); RBC Distribution Width 12.3 % (11.8-14.1); White Blood Cell Count 6.67 k/cumm (4.4-10.8)
[2019-08-24 07:05] LABS: Anion Gap 10.4 mmol/L (3-11); BUN 9 mg/dL (7-18); CO2 24.6 mmol/L (21.0-32.0); CREATININE 0.75 mg/dL (0.70-1.30); Calcium 8.9 mg/dL (8.5-10.1); Chloride 105 mmol/L (98-107); Glucose 91 mg/dL (70-100); Magnesium 1.9 mg/dL (1.8-2.4); Potassium 3.8 mmol/L (3.5-5.1); Sodium 140 mmol/L (136-145)
[2019-08-24] MEDS: chlordiazePOXIDE 25 MG CAP 50 MG PO ×3 (08:56→20:20)
[2019-08-24] MEDS: Thiamine 100 MG TAB PO (08:57)
[2019-08-24] MEDS: Heparin 5,000 UNITS/ML VIAL 5000 UNITS SC ×3 (08:57→23:32)
[2019-08-24] MEDS: Pantoprazole 40 MG TABCR PO (08:57)
[2019-08-24] MEDS: Folic Acid 1 MG TAB PO (08:57)
[2019-08-24] MEDS: Multivitamin TAB 1 TAB PO (08:57)
[2019-08-24] MEDS: Magnesium Oxide 400 MG TAB PO (10:03)
[2019-08-24] MEDS: Potassium Chloride 20 MEQ TABCR PO (10:03)
--- NOTE | 2019-08-24 10:30 | PT.INTREAT ---
Date of service: 08/24/19 Time of Service: 10:30 PT Notes Inpatient Physical Therapy Treatment Note [facility] Date: 08/24/2019 PRECAUTIONS: Fall, Seizure SUBJECTIVE: Jemal reports that he is feeling much better today than he was yesterday. He is agreeable to participating in PT. OBJECTIVE: PAIN: No c/o pain BED MOBILITY/TRANSFERS Sit-stand: SBA Stand-sit: SBA GAIT Assistive Device: No AD Weight bearing: Full Assist: CGA Distance: 50' + 100' Deviation: Seated rest x1 STAIRS: Up/down 3x4 and 2x6 using B rails and a step-over pattern with SBA ASSESSMENT: Patient demonstrates significant improvement in functional mobility compared to yesterday. He tolerated session without complaint. He was able to tolerate a progression in gait distance without asssitive device support and CGA. He would benefit from continued gait and transfer training as well as strengthening, for improved mobility and activity tolerance. PLAN: Continue with PTs POC TREATMENT CODE/TIME: 15 minutes; 43760
--- NOTE | 2019-08-24 13:16 | PDOC.CMPRO ---
Care Management Progress Note S/O: Otilio was resting. Still actively withdrawing from alcohol. Worked with PT today and stated to them he is starting to feel better. Did not engage in conversation at this time. A: 59 y.o. male admitted for Alcohol withdrawal and seizure activity. Remains at ICU Level of care today. P: Otilio will return home when medically cleared for discharge. He does have a reading recovery teacher in the community who will continue to follow him.
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
[2019-08-24] MEDS: Lidocaine 5% Patch 1 PATCH TP (17:49)
[2019-08-25] VITALS (21 sets, daily range): BP systolic 118–139; BP diastolic 77–89; PULSE 56–136; RESP 16–29; TEMP 36.4–36.6; O2SAT 95–98
[2019-08-25] MEDS: Lidocaine Patch Removal 1 EACH TD (06:24)
[2019-08-25 07:31] LABS: Abs Immature Grans 0.01 k/cumm (0.0-0.09); Absolute Basophil Count 0.02 k/cumm (0.0-0.2); Absolute Eosinophil Count 0.09 k/cumm (0.0-0.7); Absolute Lymphocyte Count 1.91 k/cumm (1.2-3.4); Absolute Monocyte Count 0.69 k/cumm (0.11-0.7); Absolute Neutrophil Count 3.14 k/cumm (1.2-6.7); Basophils % 0.3; Eosinophils % 1.5; HCT 45.1 % (40.0-50.0); HGB 15.9 g/dL (13.5-17.5); Immature Grans % 0.2; Lymphocytes % 32.6; Mean Corp. HGB Concentration 35.3 g/dL (32.0-36.0); Mean Corpuscular Hemoglobin 32.2 pg (27.0-33.0); Mean Corpuscular Volume 91.3 fL (80-95); Monocytes % 11.8; Neutrophils % 53.6; Platelet Count 149 x1000/uL (130-400); RBC 4.94 m/cumm (4.50-6.00); RBC Distribution Width 12.5 % (11.8-14.1); White Blood Cell Count 5.86 k/cumm (4.4-10.8)
[2019-08-25 07:40] LABS: Anion Gap 10.2 mmol/L (3-11); BUN 13 mg/dL (7-18); CO2 24.8 mmol/L (21.0-32.0); Calcium 9.4 mg/dL (8.5-10.1); Chloride 106 mmol/L (98-107); Glucose 97 mg/dL (70-100); Magnesium 1.8 mg/dL (1.8-2.4); Potassium 3.8 mmol/L (3.5-5.1); Sodium 141 mmol/L (136-145)
[2019-08-25] MEDS: Heparin 5,000 UNITS/ML VIAL 5000 UNITS SC ×2 (08:08→16:59)
[2019-08-25] MEDS: Multivitamin TAB 1 TAB PO (08:09)
[2019-08-25] MEDS: Thiamine 100 MG TAB PO (08:09)
[2019-08-25] MEDS: Pantoprazole 40 MG TABCR PO (08:09)
[2019-08-25] MEDS: Folic Acid 1 MG TAB PO (08:09)
[2019-08-25] MEDS: chlordiazePOXIDE 25 MG CAP 50 MG PO (09:14)
[2019-08-25] MEDS: Magnesium Oxide 400 MG TAB PO (10:45)
[2019-08-25] MEDS: Potassium Chloride 20 MEQ TABCR PO (10:46)
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
--- NOTE | 2019-08-25 11:39 | PT.INTREAT ---
Date of service: 08/25/19 Time of Service: 11:39 PT Notes Inpatient Physical Therapy Treatment Note [facility] Date: 08/25/2019 PRECAUTIONS: Fall, Seizure SUBJECTIVE: Jemal reports that he is feeling much better today than he was yesterday. He is hopeful that he will be discharged to home today. OBJECTIVE: PAIN: No c/o pain BED MOBILITY/TRANSFERS Supine-sit: I Sit-supine: I Sit-stand: I Stand-sit: I GAIT Assistive Device: No AD Weight bearing: Full Assist: SBA-S Distance: 300' Deviation: Seated rest x1 STAIRS: Up/down 3x4 and 2x6 without rails, using a step-over pattern with SBA ASSESSMENT: Patient demonstrates significant improvement in steadiness with gait compared to yesterday. He tolerated session without complaint. He was able to tolerate a progression in gait distance without assistive device support and SBA-S. He also demonstrates independence with transfers and gait at this time. He would benefit from continued gait training as well as strengthening, for improved mobility and activity tolerance. PLAN: Continue with PTs POC TREATMENT CODE/TIME: 20 minutes; 13810
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
--- NOTE | 2019-08-25 15:53 | CMPROGNOTE_ITS ---
- If Service Date Differs Date of service: 08/25/19 Time of Service: 15:54 Care Management Progress Note S/O: Otilio was sitting up in his bed when CM met with him. He was pleasant and engaged in conversation. He reported that he is feeling much better today. He stated that he had not yet met with a cross country and track and field coach, but his primary RN reported that a cross country and track and field coach was expected to meet with him this afternoon. CM also sent a referral to [employer] to assist Jemal with medicaid and disability applica tions. Otilio was agreeable to the support. He was transferred to [facility] level of care today and will continue to be monitored prior to discharge. CM will continue to follow. A: Otilio is a 59 y.o. male admitted for Alcohol withdrawal and seizure activity. P: Otilio will return home when medically cleared for discharge. He does have a cross country and track and field coach in the community who will continue to follow him. CM will coordinate [facility] transportation when he is ready.
[2019-08-25] MEDS: chlordiazePOXIDE 25 MG CAP PO (19:54)
[2019-08-26] MEDS: Heparin 5,000 UNITS/ML VIAL 5000 UNITS SC ×2 (00:08→09:42)
[2019-08-26 04:50] VITALS: BP 109/73; PULSE 72; RESP 18; TEMP 35.8; O2SAT 95
[2019-08-26 07:18] LABS: Abs Immature Grans 0.02 k/cumm (0.0-0.09); Absolute Basophil Count 0.03 k/cumm (0.0-0.2); Absolute Eosinophil Count 0.12 k/cumm (0.0-0.7); Absolute Lymphocyte Count 2.34 k/cumm (1.2-3.4); Absolute Monocyte Count 0.56 k/cumm (0.11-0.7); Absolute Neutrophil Count 2.46 k/cumm (1.2-6.7); Basophils % 0.5; Eosinophils % 2.2; HCT 44.4 % (40.0-50.0); HGB 15.6 g/dL (13.5-17.5); Immature Grans % 0.4; Lymphocytes % 42.3; Mean Corp. HGB Concentration 35.1 g/dL (32.0-36.0); Mean Corpuscular Hemoglobin 32.2 pg (27.0-33.0); Mean Corpuscular Volume 91.5 fL (80-95); Mean Platelet Volume 10.4 fL (8.0-11.0); Monocytes % 10.1; Neutrophils % 44.5; Platelet Count 145 x1000/uL (130-400); RBC 4.85 m/cumm (4.50-6.00); RBC Distribution Width 12.3 % (11.8-14.1); White Blood Cell Count 5.53 k/cumm (4.4-10.8)
[2019-08-26 07:27] LABS: Anion Gap 10.7 mmol/L (3-11); BUN 13 mg/dL (7-18); CO2 25.3 mmol/L (21.0-32.0); CREATININE 0.79 mg/dL (0.70-1.30); Calcium 9.7 mg/dL (8.5-10.1); Chloride 106 mmol/L (98-107); Glucose 96 mg/dL (70-100); Magnesium 1.9 mg/dL (1.8-2.4); Sodium 142 mmol/L (136-145)
--- NOTE | 2019-08-26 09:07 | PT.INTREAT ---
Date of service: 08/26/19 Time of Service: 09:07 PT Notes Inpatient Physical Therapy Treatment Note [facility] Date: 08/26/2019 PRECAUTIONS: Fall, Seizure SUBJECTIVE: Jemal is hopeful that he will be discharged to home today, he reports feeling good this morning. OBJECTIVE: PAIN: No c/o pain BED MOBILITY/TRANSFERS Sit-stand: I Stand-sit: I GAIT Assistive Device: No AD Weight bearing: Full Assist: S Distance: 400' Deviation: Slight path deviation, self-recovered TOILETING: Patient toileted independently ASSESSMENT: Patient tolerated session without complaint. He was able to tolerate a progression in gait distance without assistive device support and supervision. He also demonstrates independence with transfers and toileting at this time. PLAN: Continue with PTs POC TREATMENT CODE/TIME: 20 minutes; 18143
[2019-08-26] MEDS: Multivitamin TAB 1 TAB PO (09:40)
[2019-08-26] MEDS: chlordiazePOXIDE 25 MG CAP PO ×2 (09:40→13:47)
[2019-08-26] MEDS: Thiamine 100 MG TAB PO (09:41)
[2019-08-26] MEDS: Pantoprazole 40 MG TABCR PO (09:41)
[2019-08-26] MEDS: Folic Acid 1 MG TAB PO (09:41)
[2019-08-26] MEDS: Magnesium Oxide 400 MG TAB PO (10:58)
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
--- NOTE | 2019-08-26 14:42 | PDOC.CMDIS ---
- If Service Date Differs Date of service: 08/26/19 Time of Service: 14:42 LACE Index Scoring Tool - Questions: Length of Stay (in days): 4 - 6 Acuity (Admit via E.D.?): Yes Comorbidities: Liver or Renal Disease E.D. Visits: 4 - Answers: Total Score: 16 Risk of Readmission: High Risk Care Management Discharge Reason for Hospitalization: Alcohol withdrawal seizure, alcohol withdrawal Discharge Plan: Otilio will return home with a power and recovery superintendent who will follow him in the community. He will also have follow up by [facility], who met with him while he was at [facility]. He will follow up with his PCP, as recommended. He was transported by [facility] private vehicle, coordinated by CM. Patient/Family Education Needs: Review discharge instructions, discussion of self care needs including Ask Me Three Services Needed at Discharge: Transportation
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
== END 2019-08-26 13:52 | disposition home or self-care (01) | DRG 101 ==
LOC: ER 15:01 → ICU 15:26 → MS 08-26 09:56 → ICU 08-29 11:54
PROVIDERS: Admitting Provider Internal Medicine; Emergency Provider Student in an Organized Health Care Education/Training Program; PCP Internal Medicine; Visit Provider Internal Medicine
DX: G40.89 Other seizures (principal); F10.239 Alcohol dependence with withdrawal, unspecified; I82.442 Acute embolism and thrombosis of left tibial vein; I48.91 Unspecified atrial fibrillation; S01.502A Unspecified open wound of oral cavity, initial encounter; X58.XXXA Exposure to other specified factors, initial encounter; K70.30 Alcoholic cirrhosis of liver without ascites; K29.20 Alcoholic gastritis without bleeding; S09.90XA Unspecified injury of head, initial encounter; W19.XXXA Unspecified fall, initial encounter; Z91.19 Patient's noncompliance with other medical treatment and regimen; R13.10 Dysphagia, unspecified; E83.42 Hypomagnesemia; R60.0 Localized edema; Z87.820 Personal history of traumatic brain injury
CPT/HCPCS: 36415; 80048; 80053; 80061; 80076; 80307; 82550; 93005; 96361; 96365; 96366; 97162; 97530; 97535; 99232; 99233; 99238; 99291; 70450; 71045; 72125; 80320; 81003; 81015; 82607; 82746; 83605; 83735; 84443; 84484; 85025; 93010; 93971; J1200; J1630; J1644; J2060; J3420; J3475; J3490

== ENCOUNTER 2020-02-23 18:33 | Inpatient (IN) | payer MEDICAID, SELFPAY ==
[2020-02-23] VITALS (53 sets, daily range): BP systolic 134–169; BP diastolic 77–107; PULSE 68–114; RESP 15–29; TEMP 36.5–36.6; O2SAT 90–98
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
[2020-02-23 19:05] LABS: Abs Immature Grans 0.06 k/cumm (0.0-0.09); Absolute Basophil Count 0.02 k/cumm (0.0-0.2); Absolute Eosinophil Count 0.07 k/cumm (0.0-0.7); Absolute Lymphocyte Count 2.77 k/cumm (1.2-3.4); Absolute Monocyte Count 0.65 k/cumm (0.11-0.7); Absolute Neutrophil Count 3.14 k/cumm (1.2-6.7); Basophils % 0.3; HCT 40.8 % (40.0-50.0); HGB 14.5 g/dL (13.5-17.5); Immature Grans % 0.9 %; Lymphocytes % 41.3; Mean Corp. HGB Concentration 35.5 g/dL (32.0-36.0); Mean Corpuscular Hemoglobin 31.9 pg (27.0-33.0); Mean Corpuscular Volume 89.9 fL (80-95); Mean Platelet Volume 10.5 fL (8.0-11.0); Monocytes % 9.7; Neutrophils % 46.8; Platelet Count 141 x1000/uL (130-400); RBC 4.54 m/cumm (4.50-6.00); White Blood Cell Count 6.71 k/cumm (4.4-10.8)
--- NOTE | 2020-02-23 19:05 | NUR.NOTE ---
Assumed care of pt. Report from Aura. Pt lying in bed, 10L O2NC, MD Hua and Resp Therapy at bedside. NS infusing through #[address] head [address]
--- NOTE | 2020-02-23 19:10 | DI.CT_ITS ---
EXAM: CT HEAD WO CLINICAL HISTORY: AMS TECHNIQUE: COMPARISON: CT CT HEAD CERVICAL SPINE WO from 08/21/2019 FINDINGS: Noncontrast cranial CT was performed. Note is made of previously described left frontal craniotomy a nd associated encephalomalacia. No evidence of acute intracranial hemorrhage, mass effect, or midlin e shift. The orbital and temporal bone structures appear intact. Mastoid air cells are clear. Mild mucoperiosteal thickening maxillary antra noted. IMPRESSION: No evidence of acute intracranial process.
[2020-02-23 19:12] LABS: Prothrombin Time 10.3 sec (9.3-11.0)
--- NOTE | 2020-02-23 19:20 | DI.RAD_ITS ---
EXAM: XR CHEST 2V PA LATERAL CLINICAL HISTORY: AMS TECHNIQUE: 2D digital imaging was performed. COMPARISON: CR XR CHEST 1V IN DI DEPT from 10/01/2018 CR XR PORTABLE CHEST AP from 01/24/2019 CR XR PORTABLE CHEST AP from 03/31/2019 CR XR PORTABLE CHEST AP from 08/21/2019 FINDINGS: The heart is not enlarged. The lungs are clear and well expanded. No pleural effusion seen. Mediastin al contours appear intact. IMPRESSION: Normal chest
[2020-02-23 19:25] LABS: ALT 24 U/L (16-63); AST 29 U/L (15-37); Albumin 3.8 g/dL (3.4-5.0); Alkaline Phosphatase 79 U/L (46-116); Anion Gap 20.5 mmol/L (3-11); BUN 11 mg/dL (7-18); Bilirubin, Total 0.7 mg/dL (0.2-1.0); CO2 16.5 mmol/L (21.0-32.0); Calcium 9.2 mg/dL (8.5-10.1); Chloride 105 mmol/L (98-107); Glucose 116 mg/dL (74-106); Magnesium 1.8 mg/dL (1.8-2.4); Potassium 3.5 mmol/L (3.5-5.1); Sodium 142 mmol/L (136-145); TSH (W/Ref FT4) 2.23 uIU/mL (0.36-3.74); Total Protein 7.2 g/dL (6.4-8.2)
--- NOTE | 2020-02-23 19:31 | DI.VRAD_ITS ---
PROCEDURE INFORMATION: Exam: CT Head Without Contrast Exam date and time: 02/23/2020 6:40 PM Age: 59 years old Clinical indication: Altered mental status/memory loss; Patient HX: AMS TECHNIQUE: Imaging protocol: Computed tomography of the head without contrast. COMPARISON: CT HEAD CERVICAL SPINE WO 08/21/2019 11:20 AM FINDINGS: Brain: No hemorrhage. No acute large vascular territory infarct. No mass effect. Unchanged left frontal encephalomalacia. Unchanged right frontal encephalomalacia along a prior right frontal extraventricular drainage tract. Global parenchymal volume loss. Ventricles: Normal. No ventriculomegaly. Bones/joints: Status post left frontal craniotomy. No acute osseous abnormality. Sinuses: Left maxillary sinus mucosal thickening. Mastoid air cells: Visualized mastoid air cells are well aerated. Soft tissues: Unchanged left frontal scalp soft tissue thickening. IMPRESSION: 1. No acute intracranial abnormality. 2. Status post left frontal craniotomy with unchanged left frontal encephalomalacia. Dictated and Authenticated by: Florencio Clark MD. Ordering:BIENVENIDO Knight MD
--- NOTE | 2020-02-23 19:34 | DI.VRAD_ITS ---
PROCEDURE INFORMATION: Exam: XR Chest, 2 Views Exam date and time: 02/23/2020 7:15 PM Age: 59 years old Clinical indication: Other: AMS TECHNIQUE: Imaging protocol: XR of the chest Views: 2 views. COMPARISON: No relevant prior studies available. FINDINGS: Lungs: Bibasilar streaky opacities likely reflect atelectasis in the setting of low lung volumes. No focal consolidation. Enlarged cardiomediastinal silhouette 6 in weighted by low lung volumes. Pleural space: Unremarkable. No pleural effusion. No pneumothorax. Heart/Mediastinum: Unremarkable. No cardiomegaly. Bones/joints: Unremarkable. Other findings: Patient rotation somewhat limits evaluation. IMPRESSION: No acute cardiopulmonary process. Dictated and Authenticated by: Florencio Clark MD. Ordering:BIENVENIDO Knight MD
--- NOTE | 2020-02-23 19:45 | DI.RAD_ITS ---
EXAM: XR SACRUM COCCYX CLINICAL HISTORY: trauma, sacral pain TECHNIQUE: COMPARISON: No exams were available for comparison FINDINGS: Three views were obtained. There are moderate to severe degenerative changes of both hips and modera te degenerative changes of both SI joints. No acute fracture seen involving the sacrum or coccyx. IMPRESSION:
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
--- NOTE | 2020-02-23 20:07 | NUR.NOTE ---
To Head CT with this RN. Resp therapy and MD Hua. Pt oumar well. To xray with RN and resp therapy. Pt more awake and alert, responds to name. Alert to person and place. BCx2, EKG done. MD Chance in to eval pt for admission. Pt reports pain to buttocks with movement. xray ordered. No visible injuries.
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
[2020-02-23 21:47] LABS: ETHANOL BLOOD < 3.0 mg/dL (<3)
[2020-02-23] MEDS: MULTIVITAMIN 10 ML, THIAMINE 100 MG, FOLIC ACID 1 MG in DEXTROSE 5%-0.45% SALINE 1,000 ML 42 ML IV (22:10)
[2020-02-23] MEDS: LORazepam 1 MG TAB PO/SL ×2 (22:10→23:29)
[2020-02-23] MEDS: Pantoprazole 40 MG VIAL IVP (22:11)
[2020-02-23] MEDS: Normal Saline Flush 10 ML SYR IVP (22:11)
[2020-02-23] MEDS: Enoxaparin 40 MG/0.4 ML SYR SC (22:11)
[2020-02-23] MEDS: chlordiazePOXIDE 25 MG CAP 50 MG PO (22:11)
[2020-02-24] VITALS (97 sets, daily range): BP systolic 116–151; BP diastolic 73–90; PULSE 52–88; RESP 0–32; TEMP 36.5–36.7; O2SAT 94–97
[2020-02-24] MEDS: LORazepam 1 MG TAB PO/SL ×2 (04:04→09:19)
[2020-02-24] MEDS: MULTIVITAMIN 10 ML, THIAMINE 100 MG, FOLIC ACID 1 MG in DEXTROSE 5%-0.45% SALINE 1,000 ML 125 ML IV ×2 (07:53→20:46)
[2020-02-24 08:13] LABS: Abs Immature Grans 0.03 k/cumm (0.0-0.09); Absolute Basophil Count 0.02 k/cumm (0.0-0.2); Absolute Eosinophil Count 0.01 k/cumm (0.0-0.7); Absolute Lymphocyte Count 1.93 k/cumm (1.2-3.4); Absolute Monocyte Count 1.16 k/cumm (0.11-0.7); Basophils % 0.2; Eosinophils % 0.1; HCT 39.7 % (40.0-50.0); HGB 14.3 g/dL (13.5-17.5); Immature Grans % 0.3 %; Lymphocytes % 16.5; Mean Corpuscular Hemoglobin 31.4 pg (27.0-33.0); Mean Corpuscular Volume 87.3 fL (80-95); Mean Platelet Volume 10.5 fL (8.0-11.0); Monocytes % 9.9; Platelet Count 133 x1000/uL (130-400); RBC 4.55 m/cumm (4.50-6.00); RBC Distribution Width 11.8 % (11.8-14.1); White Blood Cell Count 11.72 k/cumm (4.4-10.8)
[2020-02-24 08:14] LABS: Absolute Neutrophil Count 8.56 k/cumm (1.2-6.7)
[2020-02-24 08:22] LABS: Anion Gap 8.5 mmol/L (3-11); BUN 9 mg/dL (7-18); C-Reactive Protein 1.65 mg/dL (0.0-0.3); CO2 26.5 mmol/L (21.0-32.0); CREATININE 0.74 mg/dL (0.70-1.30); Calcium 8.6 mg/dL (8.5-10.1); Chloride 104 mmol/L (98-107); Glucose 108 mg/dL (74-106); Magnesium 1.7 mg/dL (1.8-2.4); Potassium 3.1 mmol/L (3.5-5.1); Sodium 139 mmol/L (136-145)
[2020-02-24 08:26] LABS: Creatine Kinase 266 U/L (39-308)
--- NOTE | 2020-02-24 08:32 | PDOC.CMIN ---
Care Management Initial Assess REASON FOR HOSPITALIZATION:: Alcohol withdrawal seizures PAST MEDICAL HISTORY/PAST SURGICAL HISTORY:: Alcohol abuse, alcohol withdrawal, alcoholic gastritis, alcoholic liver disease, anemia, Afib with rapid ventricular response, cannabis abuse, cholelithiasis, continuous chronic alcoholism, CTS, dehydration, diarrhea, diverticulitis, DTs, essential hypertension, hematuria, closed head injury, hypokalemia, hypomagnesemia, hypophosphatemia, thrombocytopenia, craniotomy, carpal tunnel release PLAN:: Otilio will be closely montiored in the ICU on CIWA protocol, IVF and banana bag. CM to determine Otilio's current living situation and review community based supports.
[2020-02-24 08:56] LABS: Procalcitonin 0.1 ng/mL
[2020-02-24] MEDS: chlordiazePOXIDE 25 MG CAP 50 MG PO ×3 (09:19→20:45)
[2020-02-24] MEDS: Pantoprazole 40 MG VIAL IVP (09:20)
[2020-02-24] MEDS: Normal Saline Flush 10 ML SYR IVP (09:20)
[2020-02-24] MEDS: MAGNESIUM SULFATE 2 GM/50 ML BAG IVPB (09:53)
--- NOTE | 2020-02-24 10:01 | PHA.REVIEW ---
Pharmacy Admission Review - Admission Clinical Review (Last Reviewed 02/23/20 @ 19:59 by Ruddy Chance MD) Seizure (Acute) acamprosate calcium [From Campral] Adverse Reaction (Intermediate, Verified 08/21/19 11:04) widespread pain Height 6 ft 2 in Weight 108 kg - Renal Dosing Renal Dosing: BUN 9 mg/dL (7-18) 02/24/20 08:00 Creatinine 0.74 mg/dL (0.70-1.30) 02/24/20 08:00 Medications needing adjustments: Reviewed (CRCL ~117ML/MIN using ht and wt from last admission) - Anticoagulation Anticoagulation: Hgb 14.3 g/dL (13.5-17.5) 02/24/20 08:00 Hct 39.7 % (40.0-50.0) L 02/24/20 08:00 Plt Count 133 x1000/uL (130-400) 02/24/20 08:00 INR 1.0 (0.9-1.1) 02/23/20 18:50 Creatinine 0.74 mg/dL (0.70-1.30) 02/24/20 08:00 DVT Prohphylaxis: Reviewed Medications: Enoxaparin Therapeutic Anticoagulation: N/A - Relevant Labs Sodium 139 mmol/L (136-145) 02/24/20 08:00 Potassium 3.1 mmol/L (3.5-5.1) L 02/24/20 08:00 Chloride 104 mmol/L (98-107) 02/24/20 08:00 Magnesium 1.7 mg/dL (1.8-2.4) L 02/24/20 08:00 C-Reactive Protein 1.65 mg/dL (0.0-0.3) H 02/24/20 08:00 Electrolytes, C-Reactive P, ESR: Reviewed (mag IV bolus ordered) - DM Control DM Control: Glucose 108 mg/dL (74-106) H 02/24/20 08:00 Insulin Dosing: N/A - BP Control BP Control: Blood Pressure 132/80 Blood Pressure 116/73 Blood Pressure 130/79 Blood Pressure 131/77 Blood Pressure 122/79 Blood Pressure 140/77 Blood Pressure 138/80 Blood Pressure 129/77 Blood Pressure 129/74 Blood Pressure 127/76 Blood Pressure 130/74 Blood Pressure 135/79 Blood Pressure 134/79 Blood Pressure 138/77 Blood Pressure 151/77 Blood Pressure 145/79 Blood Pressure 139/81 Blood Pressure 137/84 Blood Pressure 134/87 Blood Pressure 146/86 Blood Pressure 165/86 Blood Pressure 154/88 Blood Pressure 169/107 If elevated: N/A - Qtc Review If Elevated: N/A (468) - Home Meds Home Med List reviewed: Reviewed (only meds listed are from discharge list from last admission) - Current meds Current Medication Order Review: Intervened (PO and IV vitamins ordered.continue IV banana bag today and start PO vitamins tomorrow per morning meeting) - Comments Comments/Follow Ups: DESHAWNWA ordered. Pt has had withdrawal seizures in the past.
[2020-02-24 10:17] LABS: Bilirubin Negative (Negative); Blood Small (Negative); Clarity Cloudy (Clear); Glucose Negative (Negative); Ketones Negative (Negative); Leukocyte Esterase Negative (Negative); Nitrite Negative (Negative); Specific Gravity 1.025 (1.005-1.025)
[2020-02-24 10:47] LABS: Epithelial Cells Few HPF (Negative)
[2020-02-24 10:48] LABS: Bacteria Moderate HPF (Negative); C & S Indicated? Yes; Crystals Negative HPF (Negative); Mucus Trace (Negative)
--- NOTE | 2020-02-24 11:40 | W.PM.PROGNOT ---
Date of Service Date of service: 02/24/20 Time of Service: 11:40 Assessment and Plan Assessment and plan (1) Alcohol withdrawal seizure: Status: Acute Assessment and plan: Continue to monitor in the ICU on CIWA with scheduled librium and prn PO/IV ativan, banana bag/vitamins. Monitor/replete lytes. (2) Alcohol abuse: Status: Chronic Assessment and plan: As above Patient has not successfully been able to quit drinking. Care management will offer the patient recovery once he is less somnolent. (3) Hypokalemia: Status: Acute Assessment and plan: Replete and recheck in am. (4) Hypomagnesemia: Status: Acute Assessment and plan: Replete and recheck in am (5) Discharge planning issues: Status: Acute Assessment and plan: Full code. Continues to require hospitalization (6) DVT prophylaxis: Status: Acute Assessment and plan: lovenox sc Subjective Subjective Interval history since last seen: Mr Pedraza had not had any recurrences of seizures overnight or today so far. Latest CIWA score is 6. Denies dizziness, chest pain, shortness of breath, nausea, headache. Knows he is in [facility], but does not know in what building. Exam Narrative Exam Narrative: General: Somnolent, very pleasant middle-aged male, A&Ox2, sweaty HEENT: EOMI, MMM Heart: RRR, no m/r/g Lungs: CTAB Abdomen: soft, nontender, nondistended Extremities: no e/c/c BLE's Objective Objective Clinical Data: Abnormal lab results 02/23/20 02/24/20 02/24/20 Range/Units 18:50 08:00 08:00 WBC 11.72 H D (4.4-10.8) k/cumm Hct 39.7 L (40.0-50.0) % Absolute Neutrophils 8.56 H (1.2-6.7) k/cumm Absolute Monocytes 1.16 H (0.11-0.7) k/cumm Potassium 3.1 L (3.5-5.1) mmol/L Carbon Dioxide 16.5 L (21.0-32.0) mmol/L Anion Gap 20.5 H (3-11) mmol/L Glucose 116 H 108 H (74-106) mg/dL Magnesium 1.7 L (1.8-2.4) mg/dL C-Reactive Protein 1.65 H (0.0-0.3) mg/dL Urine Blood (Negative) Urine Urobilinogen (Up TO 0.2) EU/dL Urine RBC (0-2) HPF 02/24/20 Range/Units 10:05 WBC (4.4-10.8) k/cumm Hct (40.0-50.0) % Absolute Neutrophils (1.2-6.7) k/cumm Absolute Monocytes (0.11-0.7) k/cumm Potassium (3.5-5.1) mmol/L Carbon Dioxide (21.0-32.0) mmol/L Anion Gap (3-11) mmol/L Glucose (74-106) mg/dL Magnesium (1.8-2.4) mg/dL C-Reactive Protein (0.0-0.3) mg/dL Urine Blood Small H (Negative) Urine Urobilinogen 4.0 H (Up TO 0.2) EU/dL Urine RBC 3-5 H (0-2) HPF Vital Signs Temperature 36.7 C 02/24/20 08:03 Temperature Source Temporal Artery Scan 02/24/20 08:03 Pulse 67 02/24/20 08:01 Pulse 68 02/24/20 08:01 Respiratory Rate 24 02/24/20 08:01 Respiratory Effort Non-Labored 02/24/20 08:28 Respiratory Depth Normal 02/24/20 08:28 Respiratory Pattern Normal 02/24/20 08:28 Blood Pressure 132/80 02/24/20 08:01 Blood Pressure Mean 91 02/24/20 08:01 Blood Pressure Position Supine 02/23/20 21:00 Pulse Oximetry 96 02/24/20 08:03 Respiratory End-tidal CO2 38 02/23/20 20:20 Oxygen Delivery Method Room Air 02/24/20 08:03 Oxygen Flow Rate 0 02/24/20 08:03 End Tidal Co2 23 02/23/20 18:54 Pain Level 0 02/24/20 04:00 Intake & Output 02/23/20 02/23/20 02/24/20 11:59 23:59 11:59 Intake Total 170 / 230 60 / 60 Output Total 350 / 350 400 / 400 Balance -180 / -120 -340 / -340 Weight 108 kg Intake: IV Oral 150 / 210 60 / 60 Output: Urine 150 / 150 400 / 400 Emesis 200 / 200 Other: Urine Color Dark Makayla Light Makayla Urine Appearance Clear Clear Urine Odor Strong Normal Emesis Description Projectile Bile Clear/Water Voiding Methods Urinal Urinal Laboratory Results WBC 11.72 k/cumm (4.4-10.8) H D 02/24/20 08:00 RBC 4.55 m/cumm (4.50-6.00) 02/24/20 08:00 Hgb 14.3 g/dL (13.5-17.5) 02/24/20 08:00 Hct 39.7 % (40.0-50.0) L 02/24/20 08:00 MCV 87.3 fL (80-95) 02/24/20 08:00 MCH 31.4 pg (27.0-33.0) 02/24/20 08:00 MCHC 36.0 g/dL (32.0-36.0) 02/24/20 08:00 RDW 11.8 % (11.8-14.1) 02/24/20 08:00 Plt Count 133 x1000/uL (130-400) 02/24/20 08:00 MPV 10.5 fL (8.0-11.0) 02/24/20 08:00 Immature Gran % 0.3 % 02/24/20 08:00 Neutrophils % 73.0 02/24/20 08:00 Lymphocytes % 16.5 02/24/20 08:00 Monocytes % 9.9 02/24/20 08:00 Eosinophils % 0.1 02/24/20 08:00 Basophils % 0.2 02/24/20 08:00 Absolute Neutrophils 8.56 k/cumm (1.2-6.7) H 02/24/20 08:00 Absolute Lymphocytes 1.93 k/cumm (1.2-3.4) 02/24/20 08:00 Absolute Monocytes 1.16 k/cumm (0.11-0.7) H 02/24/20 08:00 Absolute Eosinophils 0.01 k/cumm (0.0-0.7) 02/24/20 08:00 Absolute Basophils 0.02 k/cumm (0.0-0.2) 02/24/20 08:00 PT 10.3 sec (9.3-11.0) 02/23/20 18:50 INR 1.0 (0.9-1.1) 02/23/20 18:50 Sodium 139 mmol/L (136-145) 02/24/20 08:00 Potassium 3.1 mmol/L (3.5-5.1) L 02/24/20 08:00 Chloride 104 mmol/L (98-107) 02/24/20 08:00 Carbon Dioxide 26.5 mmol/L (21.0-32.0) 02/24/20 08:00 Anion Gap 8.5 mmol/L (3-11) 02/24/20 08:00 BUN 9 mg/dL (7-18) 02/24/20 08:00 Creatinine 0.74 mg/dL (0.70-1.30) 02/24/20 08:00 Estimated GFR/1.73 m2 >= 60.00 (mL/min/1.73m2) 02/24/20 08:00 Glucose 108 mg/dL (74-106) H 02/24/20 08:00 Calcium 8.6 mg/dL (8.5-10.1) 02/24/20 08:00 Magnesium 1.7 mg/dL (1.8-2.4) L 02/24/20 08:00 Total Bilirubin 0.7 mg/dL (0.2-1.0) 02/23/20 18:50 AST 29 U/L (15-37) 02/23/20 18:50 ALT 24 U/L (16-63) 02/23/20 18:50 Alkaline Phosphatase 79 U/L (46-116) 02/23/20 18:50 Creatine Kinase 266 U/L (39-308) 02/24/20 08:00 C-Reactive Protein 1.65 mg/dL (0.0-0.3) H 02/24/20 08:00 Total Protein 7.2 g/dL (6.4-8.2) 02/23/20 18:50 Albumin 3.8 g/dL (3.4-5.0) 02/23/20 18:50 Procalcitonin 0.1 ng/mL 02/24/20 08:00 TSH 2.23 uIU/mL (0.36-3.74) 02/23/20 18:50 Urine Color Yellow (Yellow) 02/24/20 10:05 Urine Clarity Cloudy (Clear) 02/24/20 10:05 Urine pH 7.0 (5-8) 02/24/20 10:05 Ur Specific [place] 1.025 (1.005-1.025) 02/24/20 10:05 Urine Protein Negative mg/dL (Negative) 02/24/20 10:05 Urine Ketones Negative mg/dL (Negative) 02/24/20 10:05 Urine Blood Small (Negative) H 02/24/20 10:05 Urine Nitrite Negative (Negative) 02/24/20 10:05 Urine Bilirubin Negative (Negative) 02/24/20 10:05 Urine Urobilinogen 4.0 EU/dL (Up TO 0.2) H 02/24/20 10:05 Ur Leukocyte Esterase Negative (Negative) 02/24/20 10:05 Urine RBC 3-5 HPF (0-2) H 02/24/20 10:05 Urine WBC 3-5 HPF (0-5) 02/24/20 10:05 Ur Epithelial Cells Few HPF (Negative) 02/24/20 10:05 Urine Crystals Negative HPF (Negative) 02/24/20 10:05 Urine Bacteria Moderate HPF (Negative) 02/24/20 10:05 Urine Casts Comment LPF (Negative) 02/24/20 10:05 Urine Mucus Trace (Negative) 02/24/20 10:05 Urine Other (Negative) 02/24/20 10:05 Ur Culture Indicated? Yes 02/24/20 10:05 Urine Glucose Negative mg/dL (Negative) 02/24/20 10:05 Ethyl Alcohol < 3.0 mg/dL (<3) 02/23/20 18:50
--- NOTE | 2020-02-24 12:06 | W.NUTCONSULT ---
Date of service: 02/24/20 Time of Service: 12:07 Nutritional Consult ASSESSMENT: 59 year old male admitted to ICU for alcohol withdrawl with seizures. BMI indicates mild obesity. Currently sombolent, will provide clears as appropriate. Estimated needs: 1406-0212 kcal, 80-90 g protein, 2400 ml fluid. Meds include MVI, thiamin and electrolyte repletion. If unable to advance diet in next 3 days, will be at risk for nutritional decline. WIll continue to follow and make recommendations as warranted. NUTRITIONAL DIAGNOSIS: at risk for nutritional decline INTERVENTION: advance diet as tolerated MONITORING AND EVALUATION: weight, po intake, labs, diet advacement Time Spent in Nutritional Counseling and Treatment: 0 time spent face to face
[2020-02-24] MEDS: POTASSIUM CHLORIDE 20 MEQ/100 ML BAG 50 MEQ IVPB ×2 (12:31→14:01)
[2020-02-24] MEDS: Lactated Ringers 1,000 ML 125 ML IV ×2 (13:06→20:44)
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
[2020-02-24] MEDS: Enoxaparin 40 MG/0.4 ML SYR SC (20:47)
[2020-02-24 22:39] LABS: COVID-19 RT-PCR UVMMC Result Negative (Negative)
[2020-02-25] VITALS (26 sets, daily range): BP systolic 120–140; BP diastolic 79–95; PULSE 54–92; RESP 18–31; TEMP 36.5–37; O2SAT 93–99
[2020-02-25] MEDS: Lactated Ringers 1,000 ML 125 ML IV (05:45)
[2020-02-25 06:36] LABS: Abs Immature Grans 0.01 k/cumm (0.0-0.09); Absolute Basophil Count 0.02 k/cumm (0.0-0.2); Absolute Eosinophil Count 0.08 k/cumm (0.0-0.7); Basophils % 0.3; Eosinophils % 1.2; HCT 39.5 % (40.0-50.0); HGB 14.2 g/dL (13.5-17.5); Immature Grans % 0.2 %; Lymphocytes % 29.2; Mean Corp. HGB Concentration 35.9 g/dL (32.0-36.0); Mean Corpuscular Hemoglobin 31.1 pg (27.0-33.0); Mean Corpuscular Volume 86.6 fL (80-95); Mean Platelet Volume 10.3 fL (8.0-11.0); Monocytes % 9.2; Neutrophils % 59.9; Platelet Count 120 x1000/uL (130-400); RBC 4.56 m/cumm (4.50-6.00); RBC Distribution Width 11.9 % (11.8-14.1); White Blood Cell Count 6.51 k/cumm (4.4-10.8)
[2020-02-25 06:41] LABS: Anion Gap 6.4 mmol/L (3-11); BUN 4 mg/dL (7-18); CO2 26.6 mmol/L (21.0-32.0); CREATININE 0.74 mg/dL (0.70-1.30); Calcium 8.7 mg/dL (8.5-10.1); Chloride 105 mmol/L (98-107); Glucose 97 mg/dL (74-106); Magnesium 1.8 mg/dL (1.8-2.4); Potassium 3.2 mmol/L (3.5-5.1); Sodium 138 mmol/L (136-145)
[2020-02-25] MEDS: chlordiazePOXIDE 25 MG CAP 50 MG PO (08:32)
[2020-02-25] MEDS: Thiamine 100 MG TAB PO (08:32)
[2020-02-25] MEDS: Folic Acid 1 MG TAB PO (08:32)
[2020-02-25] MEDS: Magnesium Oxide 400 MG TAB PO ×2 (08:33→19:59)
[2020-02-25] MEDS: Multivitamin TAB 1 TAB PO (08:33)
[2020-02-25] MEDS: POTASSIUM CHLORIDE 20 MEQ/100 ML BAG 50 MEQ IVPB ×2 (08:39→10:40)
[2020-02-25] MEDS: Pantoprazole 40 MG VIAL IVP (10:20)
[2020-02-25] MEDS: Normal Saline Flush 10 ML SYR IVP (10:21)
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
--- NOTE | 2020-02-25 12:04 | CMPROGNOTE_ITS ---
- If Service Date Differs Date of service: 02/25/20 Time of Service: 12:04 Care Management Progress Note S/O: CM met with patient at the bedside he is sitting up in the chair he states he feels better today. Jemal is working with PT he is ambulating well. He reports he is living with his friends [place] on [facility] and he is safe there. CM did fax a referral to correctional classification counselor on aging, community connection and reviewed a referral to legal recovery specialist prior to discharge. Jemal needs additional support to access insurance and legal recovery specialist for substance abuse. A: Jemal is a 59 year old male after after seizure and a long history of alcoholism and TBI P:Jemal is currently being treated in the ICU for acute withdrawal and related seizure. He will be discharged home when he is medically ready. Referrals faxed to [facility], will need to contact legal recovery specialist for community resources.
--- NOTE | 2020-02-25 13:36 | PGE_ITS ---
Date of Service Date of service: 02/25/20 Time of Service: 13:36 Assessment and Plan Assessment and plan (1) Alcohol withdrawal seizure: Status: Acute Assessment and plan: Doing well - highest CIWA score 3 today. Will start to taper librium. D/c IV ativan. Transfer out of ICU. D/c IVF - transition to PO vitamins. (2) Alcohol abuse: Status: Chronic Assessment and plan: As above Patient has not successfully been able to quit drinking. (3) Hypokalemia: Status: Acute Assessment and plan: Replete and recheck in am. (4) Hypomagnesemia: Status: Acute Assessment and plan: Replete and recheck in am (5) Discharge planning issues: Status: Acute Assessment and plan: Transfer out of ICU to [facility] with tele today. Full code. Continues to require hospitalization Plan for discharge home in 24-48 hours with a librium taper. (6) DVT prophylaxis: Status: Acute Assessment and plan: lovenox sc Subjective Subjective Interval history since last seen: Mr Pedraza states he is having a good day today. He c/o pain in right buttocks where he hurt himself during his seizure. Otherwise, denies dizziness, headache, chest pain, shortness of breath, nausea. A&Ox3 today. Exam Narrative Exam Narrative: General: Somnolent, very pleasant middle-aged male, A&Ox3, looks better HEENT: EOMI, MMM Heart: RRR, no m/r/g Lungs: CTAB Abdomen: soft, nontender, nondistended Extremities: no e/c/c BLE's Objective Objective Clinical Data: Abnormal lab results 02/25/20 02/25/20 Range/Units 06:05 06:05 Hct 39.5 L (40.0-50.0) % Plt Count 120 L (130-400) x1000/uL Potassium 3.2 L (3.5-5.1) mmol/L BUN 4 L (7-18) mg/dL Vital Signs Temperature 36.8 C 02/25/20 12:05 Temperature Source Temporal Artery Scan 02/25/20 12:05 Pulse 68 02/25/20 12:01 Pulse 68 02/25/20 12:01 Respiratory Rate 22 02/25/20 12:01 Respiratory Effort 02/25/20 08:48 Respiratory Depth Normal 02/25/20 08:48 Respiratory Pattern Normal 02/25/20 08:48 Blood Pressure 132/89 02/25/20 12:01 Blood Pressure Mean 98 02/25/20 12:01 Blood Pressure Position Supine 02/25/20 08:48 Pulse Oximetry 99 02/25/20 12:01 Respiratory End-tidal CO2 38 02/23/20 20:20 Oxygen Delivery Method Room Air 02/25/20 08:48 Oxygen Flow Rate 0 02/25/20 08:48 End Tidal Co2 23 02/23/20 18:54 Pain Level 0 02/25/20 04:13 Intake & Output 02/24/20 02/25/20 02/25/20 23:59 11:59 23:59 Intake Total 1831.250 / 0055.008 4067.2 / 2271.2 480 / 2271.2 Output Total 1575 / 2375 2024 Balance 256.250 / -483.750 -233.8 / 246.2 480 / 246.2 Weight 108.4 kg Intake: IV 1831.250 / 8399.359 0020.2 / 1111.2 Oral 680 / 1160 480 / 1160 Output: Urine 1575 / 2375 2024 Other: Urine Color Light Makayla Yellow Urine Appearance Clear Clear Urine Odor None None Comment Pt urinated before he made it to the commode, during transfer. Reinforced teaching chemical economist casanova use, asked pt to use it when he feels urgency Void on commode 300cc clear yellow. Stool Size Small Stool Characteristics Soft Brown Voiding Methods Bedside Commode Bedside Commode Incontinent Laboratory Results WBC 6.51 k/cumm (4.4-10.8) D 02/25/20 06:05 RBC 4.56 m/cumm (4.50-6.00) 02/25/20 06:05 Hgb 14.2 g/dL (13.5-17.5) 02/25/20 06:05 Hct 39.5 % (40.0-50.0) L 02/25/20 06:05 MCV 86.6 fL (80-95) 02/25/20 06:05 MCH 31.1 pg (27.0-33.0) 02/25/20 06:05 MCHC 35.9 g/dL (32.0-36.0) 02/25/20 06:05 RDW 11.9 % (11.8-14.1) 02/25/20 06:05 Plt Count 120 x1000/uL (130-400) L 02/25/20 06:05 MPV 10.3 fL (8.0-11.0) 02/25/20 06:05 Immature Gran % 0.2 % 02/25/20 06:05 Neutrophils % 59.9 02/25/20 06:05 Lymphocytes % 29.2 02/25/20 06:05 Monocytes % 9.2 02/25/20 06:05 Eosinophils % 1.2 02/25/20 06:05 Basophils % 0.3 02/25/20 06:05 Absolute Neutrophils 3.90 k/cumm (1.2-6.7) 02/25/20 06:05 Absolute Lymphocytes 1.90 k/cumm (1.2-3.4) 02/25/20 06:05 Absolute Monocytes 0.60 k/cumm (0.11-0.7) 02/25/20 06:05 Absolute Eosinophils 0.08 k/cumm (0.0-0.7) 02/25/20 06:05 Absolute Basophils 0.02 k/cumm (0.0-0.2) 02/25/20 06:05 PT 10.3 sec (9.3-11.0) 02/23/20 18:50 INR 1.0 (0.9-1.1) 02/23/20 18:50 Sodium 138 mmol/L (136-145) 02/25/20 06:05 Potassium 3.2 mmol/L (3.5-5.1) L 02/25/20 06:05 Chloride 105 mmol/L (98-107) 02/25/20 06:05 Carbon Dioxide 26.6 mmol/L (21.0-32.0) 02/25/20 06:05 Anion Gap 6.4 mmol/L (3-11) 02/25/20 06:05 BUN 4 mg/dL (7-18) L 02/25/20 06:05 Creatinine 0.74 mg/dL (0.70-1.30) 02/25/20 06:05 Estimated GFR/1.73 m2 >= 60.00 (mL/min/1.73m2) 02/25/20 06:05 Glucose 97 mg/dL (74-106) 02/25/20 06:05 Calcium 8.7 mg/dL (8.5-10.1) 02/25/20 06:05 Magnesium 1.8 mg/dL (1.8-2.4) 02/25/20 06:05 Total Bilirubin 0.7 mg/dL (0.2-1.0) 02/23/20 18:50 AST 29 U/L (15-37) 02/23/20 18:50 ALT 24 U/L (16-63) 02/23/20 18:50 Alkaline Phosphatase 79 U/L (46-116) 02/23/20 18:50 Creatine Kinase 266 U/L (39-308) 02/24/20 08:00 C-Reactive Protein 1.65 mg/dL (0.0-0.3) H 02/24/20 08:00 Total Protein 7.2 g/dL (6.4-8.2) 02/23/20 18:50 Albumin 3.8 g/dL (3.4-5.0) 02/23/20 18:50 Procalcitonin 0.1 ng/mL 02/24/20 08:00 TSH 2.23 uIU/mL (0.36-3.74) 02/23/20 18:50 Urine Color Yellow (Yellow) 02/24/20 10:05 Urine Clarity Cloudy (Clear) 02/24/20 10:05 Urine pH 7.0 (5-8) 02/24/20 10:05 Ur Specific [place] 1.025 (1.005-1.025) 02/24/20 10:05 Urine Protein Negative mg/dL (Negative) 02/24/20 10:05 Urine Ketones Negative mg/dL (Negative) 02/24/20 10:05 Urine Blood Small (Negative) H 02/24/20 10:05 Urine Nitrite Negative (Negative) 02/24/20 10:05 Urine Bilirubin Negative (Negative) 02/24/20 10:05 Urine Urobilinogen 4.0 EU/dL (Up TO 0.2) H 02/24/20 10:05 Ur Leukocyte Esterase Negative (Negative) 02/24/20 10:05 Urine RBC 3-5 HPF (0-2) H 02/24/20 10:05 Urine WBC 3-5 HPF (0-5) 02/24/20 10:05 Ur Epithelial Cells Few HPF (Negative) 02/24/20 10:05 Urine Crystals Negative HPF (Negative) 02/24/20 10:05 Urine Bacteria Moderate HPF (Negative) 02/24/20 10:05 Urine Casts Comment LPF (Negative) 02/24/20 10:05 Urine Mucus Trace (Negative) 02/24/20 10:05 Urine Other (Negative) 02/24/20 10:05 Ur Culture Indicated? Yes 02/24/20 10:05 Urine Glucose Negative mg/dL (Negative) 02/24/20 10:05 Ethyl Alcohol < 3.0 mg/dL (<3) 02/23/20 18:50 COVID-19 PCR Negative (Negative) 02/23/20 20:20 Nasopharyn COVID-19 PCR Not Applicable 02/23/20 20:20 Ref Test Perform Site [facility] lab 02/23/20 20:20
--- NOTE | 2020-02-25 13:59 | PT.INTREAT ---
Date of service: 02/25/20 Time of Service: 13:35 PT Notes Visit Reasons: ALCOHOL WITHDRAWAL SEIZURES Inpatient Physical Therapy Treatment Note [facility] Date: February 25, 2020 PRECAUTIONS:Fall, Standard, Activity as tolerated SUBJECTIVE: Otilio notes that he continuing to see improvements. Up to exercising this afternoon. OBJECTIVE: Observation: telemetry, IV access right UE PAIN: Declines pain BED MOBILITY/TRANSFERS Rolling L/R: Independent Supine-sit: Independent Sit-supine: Independent Sit-stand: Supervision Stand-sit: Supervision GAIT Assistive Device: N/A Weight bearing: FWB Assist: CGA Distance: 150 ft Deviation: occasional stagger step, cueing needed to slow angy to remain balanced THEREX: Completed 20 ankle pumps, 20 long arc quads right/left, seated hip flexion x10 reps, standing hip flexion/abduction/extension for 10 reps each side, standing heel raises 20 times followed by shoulder flexion alternate arm 15 reps right/left, bicep curls without resistance 20 reps bilaterally. Utilized chair for support with standing exercises. Tolerated well with no loss of balance. Provided cueing for proper muscle recruitment and movement pattern. ASSESSMENT: Bed mobility and sit to stand transfers independent. Continues to require supervision with bed to chair transfer and contact-guard assist with ambulation and cueing to slow angy to avoid loss of balance. PLAN: Continue with current plan of care promoting strength, functional transfers, functional endurance and ambulation promoting prior level of function as symptom level tolerates. TREATMENT CODE/TIME: 39450c2 [id number] 25 minutes 13:35 PM Disclaimer: This note was created using [employer] voice recognition software. It was reviewed for major content. However, there may be multiple small discrepancies and errors due to the voice recognition aspects of the software.
[2020-02-25] MEDS: chlordiazePOXIDE 25 MG CAP PO ×2 (15:54→19:59)
[2020-02-25] MEDS: Enoxaparin 40 MG/0.4 ML SYR SC (20:00)
[2020-02-26 00:58] VITALS: BP 123/83; PULSE 69; RESP 20; TEMP 36.6; O2SAT 99
[2020-02-26 03:16] VITALS: BP 132/85; PULSE 63; RESP 20; TEMP 36.1; O2SAT 96
[2020-02-26] MEDS: Normal Saline Flush 10 ML SYR IVP (05:41)
[2020-02-26 07:05] LABS: Abs Immature Grans 0.02 k/cumm (0.0-0.09); Absolute Basophil Count 0.02 k/cumm (0.0-0.2); Absolute Eosinophil Count 0.08 k/cumm (0.0-0.7); Absolute Lymphocyte Count 1.97 k/cumm (1.2-3.4); Absolute Monocyte Count 0.52 k/cumm (0.11-0.7); Absolute Neutrophil Count 2.83 k/cumm (1.2-6.7); Basophils % 0.4; Eosinophils % 1.5; HGB 14.7 g/dL (13.5-17.5); Immature Grans % 0.4 %; Lymphocytes % 36.2; Mean Corp. HGB Concentration 35.9 g/dL (32.0-36.0); Mean Corpuscular Hemoglobin 31.2 pg (27.0-33.0); Mean Platelet Volume 10.7 fL (8.0-11.0); Monocytes % 9.6; Neutrophils % 51.9; Platelet Count 144 x1000/uL (130-400); RBC 4.71 m/cumm (4.50-6.00); White Blood Cell Count 5.44 k/cumm (4.4-10.8)
[2020-02-26 07:15] LABS: Anion Gap 9.1 mmol/L (3-11); BUN 10 mg/dL (7-18); CO2 24.9 mmol/L (21.0-32.0); CREATININE 0.85 mg/dL (0.70-1.30); Calcium 9.3 mg/dL (8.5-10.1); Chloride 106 mmol/L (98-107); Glucose 111 mg/dL (74-106); Magnesium 1.8 mg/dL (1.8-2.4); Potassium 3.5 mmol/L (3.5-5.1); Sodium 140 mmol/L (136-145)
[2020-02-26 07:30] VITALS: BP 121/76; PULSE 59; RESP 19; TEMP 35.7; O2SAT 94
[2020-02-26] MEDS: Multivitamin TAB 1 TAB PO (08:15)
[2020-02-26] MEDS: chlordiazePOXIDE 25 MG CAP PO ×2 (08:15→12:02)
[2020-02-26] MEDS: Magnesium Oxide 400 MG TAB PO (08:15)
[2020-02-26] MEDS: Pantoprazole 40 MG TABCR PO (08:16)
[2020-02-26] MEDS: Thiamine 100 MG TAB PO (08:16)
[2020-02-26] MEDS: Folic Acid 1 MG TAB PO (08:16)
[2020-02-26 11:15] VITALS: BP 109/67; PULSE 63; RESP 19; TEMP 36.4; O2SAT 95
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
[2020-02-26 15:35] VITALS: BP 129/87; PULSE 67; RESP 18; TEMP 36.4; O2SAT 95
--- NOTE | 2020-02-26 16:45 | CMDISCH_ITS ---
- If Service Date Differs Date of service: 02/26/20 Time of Service: 16:45 LACE Index Scoring Tool - Questions: Length of Stay (in days): 4 - 6 Acuity (Admit via E.D.?): Yes E.D. Visits: 4 - Answers: Total Score: 11 Risk of Readmission: High Risk Care Management Discharge Reason for Hospitalization: Seizure alcohol withdrawal Discharge Plan: Otilio will return home today via [facility] private vehicle, coordinated by ANA. ANA sent a prior auth to [facility], as his CHA is not showing active in their system. CM connected with [employer] today to obtain CHA, which had lapsed due to him not completing his annual renewal. His CHA is now active for pharmacy, and will be active for medical by early next week. ANA also discussed case management in the community with Jemal, as a referral was sent to [facility] for options counseling. ANA contacted the pharmacy on his behalf to have his tapered prescription bubble wrapped for ease of understanding, as his dose will change daily. He is happy to be returning home, and has stated that he does not plan to drink again. Patient/Family Education Needs: Review discharge instructions regarding activity levels and medications, discussion of self care needs including ask me three and goals of care. Services Needed at Discharge: Transportation ([facility])
== END 2020-02-26 16:20 | disposition home or self-care (01) | DRG 897 ==
LOC: ER 21:05 → ICU 21:07 → MS 02-26 09:20 → ICU 02-27 10:17
PROVIDERS: Admitting Provider General Practice; Emergency Provider Student in an Organized Health Care Education/Training Program; PCP Internal Medicine; Visit Provider Internal Medicine
DX: F10.239 Alcohol dependence with withdrawal, unspecified (principal); R56.9 Unspecified convulsions; E87.6 Hypokalemia; E83.42 Hypomagnesemia; I10 Essential (primary) hypertension; Z87.820 Personal history of traumatic brain injury
CPT/HCPCS: 36415; 80048; 80053; 82550; 84145; 87040; 93005; 97110; 97162; 97530; 99222; 99232; 99239; 99285; J1650; U0003; 70450; 71046; 72220; 80320; 81003; 81015; 83735; 84443; 85025; 85610; 86140; 87086; 93010; J3480

== ENCOUNTER 2021-05-31 07:49 | Emergency (ER) | payer MEDICAID, SELFPAY ==
[2021-05-31] VITALS (86 sets, daily range): BP systolic 126–158; BP diastolic 85–111; PULSE 53–94; RESP 15–29; TEMP 36.5; O2SAT 95
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
[2021-05-31] MEDS: Normal Saline 1,000 ML 1000 ML IV (08:20)
[2021-05-31 08:21] LABS: Abs Immature Grans 0.05 10^3/uL (0.0-0.06); Absolute Basophil Count 0.05 10^3/uL (0.0-0.2); Absolute Eosinophil Count 0.05 10^3/uL (0.0-0.7); Absolute Lymphocyte Count 1.89 10^3/uL (1.2-3.4); Absolute Monocyte Count 0.47 10^3/uL (0.1-0.8); Absolute Neutrophil Count 3.22 10^3/uL (1.2-6.7); Basophils % 0.9; Eosinophils % 0.9; HCT 45.9 % (40.0-50.0); Immature Grans % 0.9; MCH 33.7 pg (27.0-33.0); MCHC 34.9 % (32.0-36.0); MCV 96.6 fL (80-95); MPV 10.2 fL (8.0-11.0); Monocytes % 8.2; Neutrophils % 56.1; Nucleated RBC 0 %; Platelet Count 102 10^3/uL (130-400); RBC 4.75 10^6/uL (4.36-5.78); RDW 11.4 % (11.8-14.1); RDW-SD 40.9 fL; WBC 5.73 10^3/uL (4.4-10.8)
--- NOTE | 2021-05-31 08:44 | DI.CT_ITS ---
Exam(s) CT HEAD WO EXAM: CT HEAD WO CLINICAL HISTORY: Seizure TECHNIQUE: COMPARISON: CT CT HEAD WO from 02/23/2020 FINDINGS: Noncontrast cranial CT was performed. Examination is compared with prior study February 23, 2020. Note i s again made prior left frontal craniotomy and associated subjacent encephalomalacia. Probable old t ranscortical infarct also noted in right frontal region, unchanged. No evidence of acute intracrania l hemorrhage, mass effect, or midline shift. The orbital and temporal bone structures appear intact. Visualized mastoid air cells and paranasal sinuses are clear. IMPRESSION: No evidence of acute process. No change from prior examination of February 2020. RADIATION DOSE DELIVERED: 999.62mGy.cm Total DLP 45.25mGy CTDIvol RADIATION OPTIMIZATION: All CT scans at this facility use at least one of these dose optimization te chniques: automated exposure control; mA and/or kV adjustment per patient size (includes targeted exa ms where dose is matched to clinical indication); or iterative reconstruction.
[2021-05-31 08:45] LABS: Bilirubin Negative (Negative); Blood Small (Negative); Clarity Clear (Clear); Glucose Negative (Negative); Ketones 40 mg/dL (Negative); Leukocyte Esterase Negative (Negative); Nitrite Negative (Negative); Specific Gravity >= 1.030 (1.005-1.025); pH 5.5 (5-8)
--- NOTE | 2021-05-31 08:48 | DI.RAD_ITS ---
Exam(s) XR CHEST 2V PA LATERAL EXAM: XR CHEST 2V PA LATERAL CLINICAL HISTORY: Seizure TECHNIQUE: 2D digital imaging was performed. COMPARISON: CR,XR XR CHEST 2V PA LATERAL from 02/23/2020 FINDINGS: The heart is not enlarged. The lungs are clear and well expanded. No pleural effusion seen. Mediastin al contours appear intact. IMPRESSION: Normal chest. RADIATION DOSE DELIVERED: Total DLP
[2021-05-31 08:55] LABS: Bacteria Negative HPF (Negative); C & S Indicated? No; Casts Negative LPF (Negative); Crystals Negative HPF (Negative); Epithelial Cells Negative HPF (Negative); Mucus Negative (Negative); RBC 0-2 HPF (0-2); WBC Negative HPF (0-5)
[2021-05-31] MEDS: Pantoprazole 40 MG VIAL IVP (09:16)
[2021-05-31] MEDS: Ondansetron 4 MG/2 ML VIAL IVP (09:16)
[2021-05-31 09:17] LABS: *AMPHETAMINES SCREEN URINE Negative (Negative); *BARBITURATES SCREEN URINE Negative (Negative); *BENZODIAZEPINES SCREEN URINE Negative (Negative); Cannabinoids THC Positive (Negative); Cocaine Screen,Urine Negative (Negative); METHADONE URINE SCREEN Negative (Negative); OPIATES URINE SCREEN Negative (Negative)
[2021-05-31 09:20] LABS: Tricyclic Antidepressants Negative (Negative)
--- NOTE | 2021-05-31 09:30 | DI.CT_ITS ---
Exam(s) CT ABDOMEN PELVIS W EXAM: CT ABDOMEN PELVIS W CLINICAL HISTORY: GI bleed TECHNIQUE: COMPARISON: CT CHEST ABD PELVIS WITH CONTRAST from 06/14/2018 CT CHEST ABD PELVIS WITH CONTRAST from 06/14/2018 FINDINGS: CT examination of the abdomen and pelvis was performed with bolus infusion of 100 cc of Omnipaque 350 . Images obtained through the lung bases are unremarkable. There is marked hepatic steatosis with no evidence of a focal mass. Spleen is unremarkable in appearance.. There is cholelithiasis without evidence gallbladder wall or pericholecystic fluid collection. No bi liary dilatation seen. The pancreatic body and tail are unremarkable in appearance. There is slight deformity of the uncina te process of the pancreas which contains multiple calcifications of varying sizes including coarse c alcifications period cystic structures may also be present in the uncinate process. Prior CT of 2017 showed a similar appearance, but there are more numerous calcifications on today's examinatio n and there may have been slight interval increase in size of uncinate process/head pancreas. Adrenals appear normal bilaterally. Kidneys appear normal with no evidence of renal mass, hydronephrosis, or nephrolithiasis. Unremarkab le bladder. There is no evidence of abdominal or pelvic adenopathy. Abdominal aorta is of normal diameter and no abnormality is seen involving major visceral branches.. Appendix is normal. No evidence diverticulitis or bowel obstruction. No significant abdominal wall hernia seen. Impression: Hepatic steatosis Cholelithiasis without biliary dilatation or evidence of acute cholecystitis. Increased prominence since 2018 of localized calcifications of the uncinate process of the pancreas w ith question low-attenuation cystic or solid mass. Findings may be associated with chronic pancreati tis, however neoplastic disease may be associated with calcifications with this appearance. Correlat ion with pancreatic MRI and MRCP is recommended. RADIATION DOSE DELIVERED: Total DLP Total DLP CTDIvol DATA REPOSITORY: All CT scans at this facility are submitted to the National Radiology Data Registry (NRDR) Dose Index Registry (DIR) with the [employer] ([employer]). RADIATION OPTIMIZATION: All CT scans at this facility use at least one of these dose optimization te chniques: automated exposure control; mA and/or kV adjustment per patient size (includes targeted exa ms where dose is matched to clinical indication); or iterative reconstruction.
[2021-05-31] MEDS: Normal Saline 1,000 ML 250 ML IV (09:39)
[2021-05-31 10:10] LABS: ALT 42 U/L (16-63); AST 52 U/L (15-37); Alkaline Phosphatase 52 U/L (46-116); Anion Gap 13.7 mmol/L (3-11); BUN 8 mg/dL (7-18); CO2 23.3 mmol/L (21.0-32.0); CREATININE 0.7 mg/dL (0.70-1.30); Calcium 8.4 mg/dL (8.5-10.1); Chloride 106 mmol/L (98-107); ETHANOL BLOOD 9.7 mg/dL (<3); Glucose 104 mg/dL (74-106); Magnesium 1.5 mg/dL (1.8-2.4); Potassium 3.7 mmol/L (3.5-5.1); Sodium 143 mmol/L (136-145); Total Protein 7.3 g/dL (6.4-8.2)
[2021-05-31] MEDS: MAGNESIUM SULFATE 1 GM/100 ML BAG IVPB (10:24)
[2021-05-31] MEDS: Omnipaque 350 MG/ML 100 ML BTL IJ (11:19)
[2021-05-31] MEDS: Normal Saline Flush 10 ML SYR IVP (11:20)
[2021-05-31] MEDS: Normal Saline - Diluent 50 ML VIAL IV (11:20)
--- NOTE | 2021-05-31 12:34 | NUR.NOTE ---
Nursing Note: Referral faxed to [facility] for follow up in one week for seizure, vomiting blood. Jazzmine Napier
== END 2021-05-31 12:30 | disposition home or self-care (01) ==
PROVIDERS: Emergency Provider Registered Nurse Emergency; PCP Internal Medicine
DX: R56.9 Unspecified convulsions (principal); K92.0 Hematemesis; E83.42 Hypomagnesemia; K70.9 Alcoholic liver disease, unspecified
CPT/HCPCS: 36415; 80053; 80307; 96361; 96365; 96375; 99285; 70450; 71046; 74177; 80320; 81003; 81015; 83735; 85025; 99284; J2405; J3475; J3490

== ENCOUNTER 2021-07-27 08:13 | Emergency (ER) | payer MEDICAID, SELFPAY ==
[2021-07-27] VITALS (18 sets, daily range): BP systolic 127–147; BP diastolic 90–100; PULSE 55–120; RESP 14–27; TEMP 36.5; O2SAT 94–98
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
--- NOTE | 2021-07-27 08:30 | RT.EKG_ITS ---
APPROVED REPORT Exam: Resting ECG Reason for Exam: Seizure Patient Location: E HR:72 bpm ECG Measurements Heart Rate 72 AXIS WA 179 P 50 QRSd 97 QRS -2 QT 447 T -8 QTc 488 Conclusion Sinus rhythm...normal P axis, V-rate 60- 99 Atrial premature complex...SV complex w/ short R-R interval. Sinus. PACs. No STEMI. I have reviewed and interpreted ECG and agree with software generated interpretation.
--- NOTE | 2021-07-27 08:30 | DI.CT_ITS ---
Exam(s) CT HEAD WO EXAM: CT HEAD WO CLINICAL HISTORY: Seizure. TECHNIQUE: Imaging Protocol: Axial computed tomography images with coronal and sagittal reformatted images were created and reviewed COMPARISON: CT CT HEAD WO from 05/31/2021 FINDINGS: Again noted is evidence of left frontal craniotomy and associated subjacent encephalomalacia in the left frontal lobe. Also abnormal hypodensity in the right frontal lobe consistent with prior infarct . There is no evidence of intracranial hemorrhage, new mass effect, or shift of midline structures. Th ere are no extra-axial fluid collections. Ventricular size is unchanged. IMPRESSION: No acute intracranial findings on this noninfused CT scan of the brain. Frontal lobe findings bilaterally as described above but unchanged from 05/31/2021. Report called to ER physician. RADIATION DOSE DELIVERED: 771.88mGy.cm Total DLP DATA REPOSITORY: All CT scans at this facility are submitted to the National Radiology Data Registry (NRDR) Dose Index Registry (DIR) with the [employer] (ACR). RADIATION OPTIMIZATION: All CT scans at this facility use at least one of these dose optimization te chniques: automated exposure control; mA and/or kV adjustment per patient size (includes targeted exa ms where dose is matched to clinical indication); or iterative reconstruction.
[2021-07-27] MEDS: Normal Saline Flush 10 ML SYR IVP (09:00)
[2021-07-27] MEDS: LORazepam 2 MG/ML VIAL IVP (09:02)
[2021-07-27 09:06] LABS: Abs Immature Grans 0.02 10^3/uL (0.0-0.06); Absolute Basophil Count 0.02 10^3/uL (0.0-0.2); Absolute Eosinophil Count 0.01 10^3/uL (0.0-0.7); Absolute Lymphocyte Count 0.84 10^3/uL (1.2-3.4); Absolute Monocyte Count 0.43 10^3/uL (0.1-0.8); Absolute Neutrophil Count 4.76 10^3/uL (1.2-6.7); Basophils % 0.3; Eosinophils % 0.2; HGB 16.5 g/dL (13.5-17.5); Immature Grans % 0.3; Lymphocytes % 13.8; MCH 33.1 pg (27.0-33.0); MCHC 35.9 % (32.0-36.0); MCV 92.4 fL (80-95); MPV 10.2 fL (8.0-11.0); Monocytes % 7.1; Neutrophils % 78.3; Nucleated RBC 0 %; RBC 4.98 10^6/uL (4.36-5.78); RDW 11.9 % (11.8-14.1); RDW-SD 40.6 fL; WBC 6.08 10^3/uL (4.4-10.8)
[2021-07-27 09:16] LABS: INR 1.1 (0.9-1.1); Prothrombin Time 10.6 sec (9.3-11.0)
[2021-07-27 09:26] LABS: Platelet Count 103 10^3/uL (130-400)
[2021-07-27 09:33] LABS: Bilirubin Small (Negative); Blood Small (Negative); Clarity Clear (Clear); Glucose Negative (Negative); Ketones 80 mg/dL (Negative); Leukocyte Esterase Negative (Negative); Nitrite Negative (Negative); Specific Gravity >= 1.030 (1.005-1.025); pH 6.5 (5-8)
[2021-07-27 09:36] LABS: ALT 38 U/L (16-63); AST 48 U/L (15-37); Alkaline Phosphatase 67 U/L (46-116); Anion Gap 12.8 mmol/L (3-11); BUN 9 mg/dL (7-18); Bilirubin, Total 1.8 mg/dL (0.2-1.0); CO2 24.2 mmol/L (21.0-32.0); Calcium 9.5 mg/dL (8.5-10.1); Chloride 103 mmol/L (98-107); Glucose 139 mg/dL (74-106); Lipase 101 U/L (73-393); Magnesium 1.9 mg/dL (1.8-2.4); Potassium 3.3 mmol/L (3.5-5.1); Sodium 140 mmol/L (136-145); Total Protein 7.8 g/dL (6.4-8.2)
[2021-07-27 09:40] LABS: Acetaminophen < 2 ug/mL (10-30); Salicylate < 2.8 mg/dL (<2.8)
[2021-07-27 09:40] LABS: Troponin I < 0.05 ng/mL (<0.06)
[2021-07-27 09:46] LABS: ETHANOL BLOOD < 3.0 mg/dL (<3)
[2021-07-27 09:46] LABS: Bacteria Moderate HPF (Negative); Crystals Negative HPF (Negative); Epithelial Cells Rare HPF (Negative); Mucus Moderate (Negative); Other Cells Moderate Spermatozoa (Negative)
[2021-07-27 09:47] LABS: C & S Indicated? No/Sq. Contamination
[2021-07-27 09:52] LABS: *AMPHETAMINES SCREEN URINE Negative (Negative); *BARBITURATES SCREEN URINE Negative (Negative); *BENZODIAZEPINES SCREEN URINE Negative (Negative); Cannabinoids THC Positive (Negative); Cocaine Screen,Urine Negative (Negative); METHADONE URINE SCREEN Negative (Negative); OPIATES URINE SCREEN Negative (Negative); Tricyclic Antidepressants Negative (Negative)
[2021-07-27] MEDS: MAGNESIUM SULFATE 8.12 MEQ, MULTIVITAMIN 10 ML, THIAMINE 100 MG, FOLIC ACID 1 MG in Nor... 350 MG IV (11:05)
[2021-07-27] MEDS: LORazepam 0.5 MG TAB PO ×2 (11:29→11:59)
== END 2021-07-27 11:58 | disposition home or self-care (01) ==
LOC: ER 11:30
PROVIDERS: Emergency Provider Registered Nurse Emergency; PCP Internal Medicine
DX: F10.239 Alcohol dependence with withdrawal, unspecified (principal); G40.509 Epileptic seizures related to external causes, not intractable, without status epilepticus
CPT/HCPCS: 36415; 80053; 80307; 83690; 93005; 96365; 99284; 70450; 80320; 80329; 81003; 81015; 83735; 84484; 85025; 85610; 93010; J2060

== ENCOUNTER 2021-09-20 12:00 | Emergency (ER) | payer MEDICAID, SELFPAY ==
[2021-09-20] MEDS: EPINEPHrine 1 MG/10 ML SYR IVP ×3 (12:00→12:10)
[2021-09-20] MEDS: Sodium Bicarbonate 50 MEQ/50 ML SYR IVP (12:06)
[2021-09-20] MEDS: DOPamine 400 MG/250 ML BAG 86.1 MG IV (12:08)
[2021-09-20] MEDS: MAGNESIUM SULFATE 4 GM/100 ML BAG IVPB (12:09)
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
== END 2021-09-20 13:37 | disposition expired ==
PROVIDERS: Emergency Provider Emergency Medicine; PCP Internal Medicine
DX: I11.9 Hypertensive heart disease without heart failure (principal); F10.10 Alcohol abuse, uncomplicated; I49.01 Ventricular fibrillation; I46.9 Cardiac arrest, cause unspecified
CPT/HCPCS: 92950; 96365; 96368; 96375; 99285; J1265; J3475